=== PATIENT | male | born 1970 | race Two or more races ===

== ENCOUNTER → 2020-08-29 13:58 | Outpatient (REF) | payer BC, SELFPAY | LOC: HO.SL 13:58 | PROVIDERS: PCP Internal Medicine; Visit Provider Internal Medicine | DX: G47.33 Obstructive sleep apnea (adult) (pediatric) (principal); I10 Essential (primary) hypertension | CPT/HCPCS: 95806 ==

== ENCOUNTER → 2020-09-21 13:52 | Outpatient (REF) | payer BC, SELFPAY ==
--- NOTE | 2020-09-21 14:05 | ECG_ITS ---
Hook-up date: 2020-09-21 14:04:00 Duration: 25:34:00 Test Indications: ESSEN. HTN, PALPITATIONS Medications: [id number] QRS complexes 3 Ventricular ectopics which represent <1 % of total QRS comp. 36 Supraventricular ectopics which represent <1 % of total QRS comp. * Paced QRS complexs which represent % of total QRS comp. VENTRICULAR ECTOPY 3 Isolated 0 Bigeminal Cycles 0 Couplets 0 Runs 0 Beats in Runs * Beats LONGEST at * BPM at :: -- * Beats FASTEST at * BPM at :: -- SUPRAVENTRICULAR ECTOPY 36 Isolated 0 Couplets 0 Runs 0 Beats in Runs * Beats LONGEST at * BPM at :: -- * Beats FASTEST at * BPM at :: -- HEART RATES 45 MIN at 21:42:05 2020-09-21 80 AVG 136 MAX at 14:45:18 2020-09-21 LONGEST RR 1.4480 secs at 21:43:31 2020-09-21 S-T LEVELS Channel 1 - 128 mm at 14:04:00 2020-09-21 - 128 mm at 14:04:00 2020-09-21 Channel 2 - 128 mm at 14:04:00 2020-09-21 - 128 mm at 14:04:00 2020-09-21 Channel 3 - 128 mm at 03:32:31 -- - 128 mm at 03:32:31 Basic rhythm Normal sinus rhythm No long pause or profound bradycardia Rare Premature atrial complexes Patient reported symptoms correlated with NSR Referred By: Darcy Seo Overread By: BERTRAM US MD
== END ==
LOC: HO.CARD 13:52
PROVIDERS: Visit Provider Internal Medicine
DX: R00.2 Palpitations (principal); I10 Essential (primary) hypertension
CPT/HCPCS: 93225; 93226

== ENCOUNTER → 2020-10-13 11:28 | Outpatient (REF) | payer BC, SELFPAY ==
--- NOTE | 2020-10-13 11:32 | CA_ITS ---
Transthoracic Echocardiogram Patient (Last, First, Middle): Yuri Acuña C Gender: Male Date of : 1970 Age: 49 Procedure Date: 10/13/2020 Procedure Type: Transthoracic Echocardiogram Location: OP Height: 193.04 cm Weight: 105.24 kg BSA: 2.36 m2 Heart Rate: bpm BP: 117 / 79 mmHg Infectious Diseases Physician: LI Arrieta MD: Darcy Seo MD Quality Control Coordinator: Paul Portillo MD Symptoms: hypertension Study Quality: Fair ECG Rhythm: Sinus Conclusions: - Essentially normal study Findings Left Ventricle Normal left ventricular size, thickness, and systolic function. The visually estimated ejection fraction is between 60-65%. Diastolic function is normal for age. Right Ventricle Normal right ventricular cavity size and systolic function. Atria Both atria are normal in size. Interatrial shunt cannot be excluded. Aortic Valve The aortic valve structure and function is likely normal. There is no aortic valve stenosis. There is no aortic valve regurgitation. Mitral Valve Normal mitral valve structure and function. There is trace mitral valve regurgitation. There is no mitral valve stenosis. Pulmonic Valve The pulmonic valve was not well visualized. Tricuspid Valve Likely normal tricuspid valve structure and function. There is mild tricuspid valve regurgitation. The right ventricular systolic pressure is normal. The right ventricular systolic pressure is 20 mmHg. Normal right atrial pressure. There is no evidence of pulmonary hypertension. Great Vessels All visible segments of the aorta are normal in size. The pulmonary artery was not well visualized. Venous The inferior vena cava is normal in size and collapses greater than 50% with inspiration. Pericardium/Pleural There is no evidence of pericardial effusion. Prior Study Comparison No prior study available for comparison. Measurements M-Mode Liner Measurements Normals - Women/Men AOV Cusps: 2.10 1.5-2.6 cm/m2 2D Linear Measurements IVSd: 1.04 0.6-0.9/0.6-1.0 cm LVIDd: 4.33 3.9-5.3/4.2-5.9 cm LVIDd Index: 1.83 2.4-3.2/2.2-3.1 cm/m2 LVIDs: 2.59 2.0-3.6 cm LVPWd: 0.87 0.7-1.1 cm Ao Root: 3.00 2.1-3.5 cm LA Diam: 2.90 2.7-3.8/3.0-4.0 cm LAIDs Index: 1.23 1.5-2.3 cm/m2 LV Mass: 168.38 67-162/88-224 g LV Mass Index: 71.35 43-95/49-115 g/m2 LVOT Diam: 2.10 3.0+(-)1.3 cm 2D Systolic Function EF 4C: 60.10 >55% EF 2C: 66.50 >55% EF BiP: 63.50 >55% Mitral Valve MV Pk E: 0.80 MV PK A: 0.54 MV Decel Time: 183.00 E/A: 1.50 E'Lateral: 14.50 E'Medial: 7.72 E/E' Med: 10.30 E/E' Lat: 5.50 PHT: 54.00 MVA PHT: 4.07 Decel Fisher: 4.34 Aortic Valve AoV Pk Frederick: 1.67 AoV Pk Grad: 11.00 LVOT LVOT Pk Frederick: 1.12 LVOT Mn Frederick: 0.82 LVOT VTI: 0.23 LVOT Pk Grad: 5.00 LVOT Mn Grad: 3.00 LVOT Diam: 2.10 LVOT Area: 3.46 Diastolic Function MV Pk E: 0.80 MV Pk A: 0.54 E/A: 1.50 E'Medial: 7.72 E/E' Med: 10.30 E' Laterial: 14.50 E/E' Lat: 5.50 Tricuspid Valve TR Pk Frederick: 2.05 TR Pk Grad: 17.00 RA Press: 3.00 RVSP: 20.00 Great Vessels Aorta Ao Root-2D: 3.00 2.0-3.7 cm Ao Asc: 3.20 2.1-3.4 cm Ao Arch: 2.40 Pulmonary Valve PV Pk Frederick: 1.37 Peak PV Grad: 8.00 Updated in Other Vendor System with Status of Final Paul Portillo MD electronically signed on 10/13/2020 4:13:05 PM with status of Final
== END ==
LOC: HO.CARD 11:28
PROVIDERS: Visit Provider Internal Medicine
DX: R00.2 Palpitations (principal); I10 Essential (primary) hypertension
CPT/HCPCS: 93306

== ENCOUNTER 2021-01-23 14:43 | Outpatient (REF) | payer BC, SELFPAY ==
--- NOTE | ~2021-01-23 | XR_ITS ---
EXAMINATION: XR KNEE, RIGHT CLINICAL INFORMATION: Knee pain. COMPARISON: X-ray 09/28/2010 TECHNIQUE: Four views of the right knee. FINDINGS: Severe medial compartment arthritis, with marked joint space loss, sclerosis and cysts. Genu varus. Arthritis to a lesser degree in the lateral and patellofemoral compartment. No fracture or dislocation. Small to moderate effusion. XR/XR knee RT 4V IMPRESSION: Tricompartment osteoarthritis. Severe medial compartment arthritis. Small moderate effusion.
== END 2021-01-23 14:44 | disposition home or self-care (01) ==
LOC: HO.XRAY 14:43
PROVIDERS: PCP Internal Medicine; Referring Provider Internal Medicine; Visit Provider Internal Medicine
DX: M25.561 Pain in right knee (principal)
CPT/HCPCS: 73564

== ENCOUNTER 2021-01-25 13:14 | Outpatient (REF) | payer BC, SELFPAY ==
--- NOTE | ~2021-01-25 | US_ITS ---
EXAMINATION: ULTRASOUND EXTREMITY NONVASCULAR CLINICAL INFORMATION: Right knee pain COMPARISON: Previous x-ray 01/23/2021 TECHNIQUE: Grayscale color and Doppler imaging of the soft tissues of the knee FINDINGS: There is a suprapatellar joint effusion. There is no Gomez's cyst. The popliteal artery and vein are patent. US/US extremity nonvascular IMPRESSION: Suprapatellar joint effusion.
== END 2021-01-25 13:15 | disposition home or self-care (01) ==
LOC: HO.US 13:14
PROVIDERS: PCP Internal Medicine; Visit Provider Internal Medicine
DX: M25.561 Pain in right knee (principal); M25.461 Effusion, right knee
CPT/HCPCS: 76882

== ENCOUNTER → 2021-10-24 14:41 | Outpatient (BNVA) | payer BC, SELFPAY | PROVIDERS: PCP Internal Medicine; Visit Provider Nurse Practitioner Family | DX: Z13.89 Encounter for screening for other disorder (principal) ==

== ENCOUNTER 2023-03-13 13:05 | Outpatient (REF) | payer BC, SELFPAY ==
[2023-03-13 16:32] LABS: Estimated Average Glucose 105 mg/dL; Hemoglobin A1c % 5.3 %
[2023-03-13 16:38] LABS: Anion Gap 12 (12-20); Blood Urea Nitrogen 11 mg/dL (9-16); Calcium 9.8 mg/dL (8.4-10.2); Carbon Dioxide 26 mmol/L (22-29); Chloride 104 mmol/L (96-108); Estimated Glomerular Filt Rate > 60; Glucose Random 79 mg/dL (60-115); Potassium 4.2 mmol/L (3.3-5.1); Sodium 138 mmol/L (135-145)
== END 2023-03-13 13:06 | disposition home or self-care (01) ==
LOC: HO.HHCL 13:05
PROVIDERS: Visit Provider Internal Medicine
DX: R73.01 Impaired fasting glucose (principal)
CPT/HCPCS: 36415; 80048; 83036

== ENCOUNTER 2023-07-11 08:29 | Outpatient (REF) | payer BC, SELFPAY ==
[2023-07-17 13:28] LABS: Testosterone, Total 213 ng/dL (250-1100)
== END 2023-07-11 08:30 | disposition home or self-care (01) ==
LOC: HO.HHCL 08:29
PROVIDERS: Visit Provider Internal Medicine
DX: N40.1 Benign prostatic hyperplasia with lower urinary tract symptoms (principal)
CPT/HCPCS: 36415; 84402; 84403

== ENCOUNTER 2023-08-28 13:43 | Outpatient (AMB) | payer BC, SELFPAY ==
--- NOTE | 2023-08-28 13:49 | A.OFFVIS_ITS ---
Intake Intake Visit Reasons: BPH Intake Note: NEW Patient presents today to established treatment for BPH: Meds- Testosterone IM Allergies to Antibiotic- Penicillin Blood Thinner- Aspirin Post Void Residual: 92 ml Electrical Tester Battery Required: No Accompanied by: Self / Same As Patient Allergies cortisone [CORTISONE] Allergy (Unknown, Verified 08/28/23 13:50) TACHYCARDIA Penicillins [PCN] Allergy (Unknown, Verified 08/28/23 13:50) HIVES HPI HPI Comments History of Present Illness Details Yuri is a 52 year old male who is here for evaluation for BPH. The patient states he is prescribed testosterone replacement by Endocrine. The patient complains of daytime urinary frequency every 2-3 hours, denies urinary incontinence, nocturia x3, denies hematuria, or dysuria. I have discussed avoiding dietary bladder irritants, including to cut back on caffeine usage I have discussed evaluation of the upper tracts and consideration for cystoscopy evaluation. 08/28/23--Plan: Cialis 5 mg daily renal US, PSA screening PFSH Surgical History Hx of knee surgery History of cholecystectomy Family History (Updated 08/28/23 @ 14:17 by ANGIE Martines) Father Heart attack No family history of cancer Mother No problems noted. Social History Alcohol intake: current Alcohol intake frequency: holidays/special occasions only Patient Tobacco Use Status: Never used Tobacco Questionnaire AUA Symptom Score AUA Incomplete emptying - It does not feel like I empty my bladder all the way.: 2 - Less than half the time Frequency - I have to go again less than two hours after I finish urinating.: 3 - About half the time Intermittency - I stop and start again several times when I urinate.: 0 - Not at all Urgency - It is hard to wait when I have to urinate.: 0 - Not at all Weak stream - I have a weak urinary stream.: 0 - Not at all Straining - I have to push or strain to begin urination.: 2 - Less than half the time Nocturia - I get up to urinate after I go to bed until the time I get up in the morning.: 3 times AUA Symptom Score: 10 Quality of life due to urinary symptoms: If you were to spend the rest of your life with your urinary condition the way it is now, how would you feel about that?: Mostly dissatisfied Source: Aron ARANGO, Luiza SHARPE Jr, O'Gilberto MP, et al, and the Measurement Committee of the [place] [employer]. The [place] [employer] symptom index for benign prostatic hyperplasia. J Urol. 1992; 148: 9750-5354. Copyright 1992 [employer] [place] [employer] Review of Systems Const All systems reviewed & are unremarkable except as noted in HPI and below Reports no additional complaints Eyes Reports no additional complaints ENT Reports no additional complaints Card Denies dyspnea Resp Denies cough and Denies dyspnea GI Reports no additional complaints Musc Reports no additional complaints Skin/Breast Denies rash and Denies unusual bruising Neuro Reports no additional complaints Psych Reports no additional complaints Endo Reports no additional complaints Aaron/Lymph Reports no additional complaints Aller/Immun Reports no additional complaints Physical Exam Const General: healthy appearing, no acute distress and well developed Orientation/consciousness: patient oriented x3 HEENT Head: Yes normocephalic and Yes atraumatic Eyes Conjunctivae: conjunctivae normal Neck Neck: Yes normal visual inspection Chest Chest palpation & inspection: normal inspection of the chest Resp Effort & Inspection: normal respiratory effort Cardio Rate: regular rate GI Inspection: Yes normal to inspection Palpation (GI): Soft to palpation Other: Prostate Exam: smooth, mildly enlarged Skin General skin exam: no rashes or lesions noted Neuro General: patient oriented x3 Extrem General: No pedal edema Psych Appearance: grossly normal Affect: normal affect Office Procedures Post Void Residual Post Residual Void Post Void Residual (PVR): 92 [id number] Void Residual by ultrasound Results AMB Urinalysis, Automated UA Leukoctes 0 Micki/uL Last Edit by ANGIE Martines on 08/28/23 14:15 UA Nitrite Negative Last Edit by ANGIE Martines on 08/28/23 14:15 UA Urobilinogen 0.2 mg/dL Last Edit by ANGIE Martines on 08/28/23 14:1 5 UA Protein 0 mg/dL Last Edit by Susie Atkinson Kandy on 08/28/23 14:15 UA pH 6.0 Last Edit by Susie Atkinson A on 08/28/23 14:15 UA Blood 0 Alberto/uL Last Edit by Susie Atkinson, A on 08/28/23 14:15 UA Specific [place] 1.015 Last Edit by Susie Atkinson, A on 08/28/23 14: 15 UA Ketone Negative Last Edit by Susie Atkinson Kandy on 08/28/23 14:15 UA Bilirubin 0 mg/dL Last Edit by Susie Atkinson A on 08/28/23 14:15 UA Glucose 0 mg/dL Last Edit by Susie Atkinson Kandy on 08/28/23 14:15 Results Reviewed Results Reviewed: Laboratory Last Values Urine pH (Auto) 6.0 08/28/23 13:55 Specific [place] (Auto) 1.015 08/28/23 13:55 Urine Protein (Auto) 0 mg/dL 08/28/23 13:55 Glucose (UA)(Auto) 0 mg/dL 08/28/23 13:55 Urine Ketones (Auto) Negative 08/28/23 13:55 Urine Blood (Auto) 0 Alberto/uL 08/28/23 13:55 Urine Nitrite (Auto) Negative 08/28/23 13:55 Urine Bilirubin (Auto) 0 mg/dL 08/28/23 13:55 Urine Urobilinogen (Auto) 0.2 mg/dL 08/28/23 13:55 Leukocyte Esterase (Auto) 0 Micki/uL 08/28/23 13:55 Assessment & Plan Assessment & Plan (1) BPH loc w urin obs/LUTS: Code(s): N40.1 - Benign prostatic hyperplasia with lower urinary tract symptoms Plan Cialis 5 mg daily renal US, PSA screening Orders: Orders AMB Urinalysis Automated 08/28/23 Z13.9 - Encounter for screening, unspecified AMB Post Void Residual by ultrasound 08/28/23 N39.8 - Other specified disorders of urinary system US retroperitoneal comp 08/28/23 N40.1 - Benign prostatic hyperplasia with lower urinary tract symptoms PSA,Total (Free>4and<10) 08/30/23 N40.1 - Benign prostatic hyperplasia with lower urinary tract symptoms Medications: New tadalafil (Cialis) 5 mg PO DAILY 30 tabs 5RF Patient Instructions: The patient had an opportunity to ask questions regarding treatment plan. All questions were answered. Laboratory studies and physical exam results were discussed and reviewed in detail. No major barriers to understanding were identified. The patient expressed understanding and agreement with the above treatment plan. The patient is aware they should contact our office by phone for worsening of their current condition or the appearance of new symptoms. Compliance is encouraged with any medications and followup testing that is ordered. It is a privilege to be allowed the opportunity to participate in the urologic care of your patient. If you have any questions or concerns regarding treatment for the above conditions please do not hesitate to contact me. The office te hannah contact is [phone]. This note is constructed in part using voice recognition software. While every effort has been made to ensure accuracy oral health therapist errors may have been included. Yours sincerely, Gerald Hurley MD Quality Reporting (2020) Benign Prostatic Hyperplasia ([facility] 771) AUA symptom score: 10 Quality of life due to urinary symptoms: If you were to spend the rest of your life with your urinary condition the way it is now, how would you feel about that?: Mostly dissatisfied Coding Level of Care Code New Pt Level 4 (90661) Diagnoses BPH loc w urin obs/LUTS N40.1 CPT Codes Post Residual Void - PVR CPT Code: 78862-Ryxi Void Residual by ultrasound ([id number])
== END 2023-08-28 14:54 | disposition home or self-care (01) ==
PROVIDERS: PCP Internal Medicine; Visit Provider Urology
DX: N40.1 Benign prostatic hyperplasia with lower urinary tract symptoms (principal)
CPT/HCPCS: 99204

== ENCOUNTER → 2023-08-28 13:43 | Outpatient (BNVA) | payer BC, SELFPAY | PROVIDERS: PCP Internal Medicine; Visit Provider Urology | DX: N40.1 Benign prostatic hyperplasia with lower urinary tract symptoms (principal); N13.8 Other obstructive and reflux uropathy; Z79.899 Other long term (current) drug therapy | CPT/HCPCS: 51798; 81003 ==

== ENCOUNTER 2023-08-30 08:04 | Outpatient (REF) | payer BC, SELFPAY ==
[2023-08-30 10:25] LABS: PSA,Total (Free>4and<10) 0.27 ng/mL (0.00-4.00)
== END 2023-08-30 08:05 | disposition home or self-care (01) ==
LOC: HO.LAB 08:04
PROVIDERS: Visit Provider Urology
DX: Z12.5 Encounter for screening for malignant neoplasm of prostate (principal); N40.1 Benign prostatic hyperplasia with lower urinary tract symptoms
CPT/HCPCS: 36415; 84153

== ENCOUNTER 2023-09-23 14:41 | Outpatient (REF) | payer BC, SELFPAY ==
[2023-09-23 16:24] LABS: MANUAL DIFF FLAG NO
[2023-09-23 16:25] LABS: Basophils Percent Auto 0.6 % (0-2); Eosinophils Absolute Auto 0.1 X10*3/uL (0.0-0.4); Eosinophils Percent Auto 1.7 % (0-4); Hematocrit 41.6 % (42.0-52.0); Hemoglobin 13.7 g/dl (14.0-18.0); Imm Gran Abs Auto 0.02 X10*3/uL (0.00-0.03); Imm Gran Pct Auto 0.3 % (0.0-0.4); Lymphocytes Absolute Auto 1.6 X10*3/uL (1.2-4.9); Lymphocytes Percent Auto 23.4 % (20-40); Mean Corpuscular HGB Conc 32.9 g/dl (31.0-36.0); Mean Corpuscular Hemoglobin 28.6 pg (27.0-33.0); Mean Corpuscular Volume 86.8 fL (80.0-98.0); Monocytes Absolute Auto 0.5 X10*3/uL (0.1-1.2); Monocytes Percent Auto 6.7 % (2-11); Neutrophils Absolute Auto 4.6 x10*3/uL (2.0-8.3); Neutrophils Percent Auto 67.3 % (45-73); Platelet Count 247 X10*3/uL (160-400); Red Blood Count 4.79 X10*6/uL (4.60-5.80); Red Cell Distribution Width 13.8 % (11.0-16.0); White Blood Count 6.9 X10*3/uL (4.8-10.8)
[2023-09-23 16:51] LABS: C Reactive Protein 0.16 mg/dL (< or = 0.50); Uric Acid 4.3 mg/dL (3.4-7.0)
[2023-09-23 17:11] LABS: Erythrocyte Sedimentation Rate 5 MM/HR (0-15)
[2023-09-24 08:45] LABS: Syphilis Screen Nonreactive (Nonreactive)
[2023-10-01 08:33] LABS: Anti Nuclear Antibody Screen NEGATIVE (NEGATIVE)
== END 2023-09-23 14:42 | disposition home or self-care (01) ==
LOC: HO.HHCL 14:41
PROVIDERS: Visit Provider Internal Medicine
DX: M19.079 Primary osteoarthritis, unspecified ankle and foot (principal)
CPT/HCPCS: 36415; 84550; 85025; 85652; 86038; 86140; 86780

== ENCOUNTER 2023-09-25 12:58 | Outpatient (REF) | payer BC, SELFPAY ==
--- NOTE | ~2023-09-25 | XR_ITS ---
EXAMINATION: XR ANKLE, RIGHT CLINICAL INFORMATION: Right ankle pain x2 weeks. COMPARISON: None available. TECHNIQUE: AP, lateral, and mortise views of the right ankle. FINDINGS: Alignment is anatomic. Ankle mortise is maintained. The talar dome is intact. Tiny well-corticated ossific density inferior to the medial malleolus may represent old injury. Mild diffuse soft tissue swelling. XR/XR ankle RT min 3V IMPRESSION: No acute bony abnormality.
== END 2023-09-25 12:59 | disposition home or self-care (01) ==
LOC: HO.HHCX 12:58
PROVIDERS: Visit Provider Internal Medicine
DX: M19.071 Primary osteoarthritis, right ankle and foot (principal)
CPT/HCPCS: 73610

== ENCOUNTER 2023-11-01 07:18 | Outpatient (REF) | payer BC, SELFPAY ==
[2023-11-01 08:46] LABS: Cholesterol 122 mg/dL (<200); HDL Cholesterol 35 mg/dL (>40); LDL Cholesterol Calculated 70 mg/dL (<100); Triglycerides 86 mg/dL (<150)
[2023-11-01 09:40] LABS: HBS Num1 21.01 mIU/mL (0-7.99); HBc Num1 0.08 S/CO (0.00-0.79); HBsAGNum1 0.29 S/CO (0.00-0.99); HIV AB/AG Nonreactive (Nonreactive); HIV Num 1 0.08 S/CO (0.00-0.99); Hepatitis A Antibody IgM 0.42 Index (0-0.79); Hepatitis B Core Antibody Nonreactive (Nonreactive); Hepatitis B Surface Antigen Negative (Negative); ~HepC Num1 0.09 S/CO (0.00-0.79); ~Hepatitis A Antibody IgM Nonreactive (Nonreactive); ~Hepatitis B Surface Antibody REACTIVE (Nonreactive); ~Hepatitis C Antibody Nonreactive (Nonreactive)
== END 2023-11-01 07:19 | disposition home or self-care (01) ==
LOC: HO.LAB 07:18
PROVIDERS: PCP Internal Medicine; Visit Provider Internal Medicine
DX: Z00.00 Encounter for general adult medical examination without abnormal findings (principal); Z11.4 Encounter for screening for human immunodeficiency virus [HIV]; E78.2 Mixed hyperlipidemia
CPT/HCPCS: 36415; 80061; 86704; 86706; 86709; 86803; 87340; 87389

== ENCOUNTER 2023-11-19 15:56 | Outpatient (REF) | payer BC, SELFPAY ==
--- NOTE | ~2023-11-19 | US_ITS ---
EXAMINATION: US RETROPERITONEAL COMPLETE (RENAL) CLINICAL INFORMATION: Benign prostatic hyperplasia with lower urinary tract symptoms. COMPARISON: None available. TECHNIQUE: Real-time imaging of the kidneys and bladder. FINDINGS: RIGHT KIDNEY: 10.9 x 4.6 x 5.1 cm (SAG x AP x TRV). The kidney is normal in size, contour, and echogenicity. Renal cortical thickness is normal. No calculi or focal parenchymal lesions. No hydronephrosis. LEFT KIDNEY: 12.0 x 4.9 x 4.5 cm (SAG x AP x TRV). The kidney is normal in size, contour, and echogenicity. Renal cortical thickness is normal. No calculi or focal parenchymal lesions. No hydronephrosis. BLADDER: Well distended and normal. Bilateral ureteral jets are demonstrated. Prevoid bladder volume is 183.4 mL. Postvoid bladder volume is 32.3 mL. Enlarged prostate, volume 35.2 mL. US/US retroperitoneal comp IMPRESSION: 1. Normal appearance of the kidneys. 2. Small post void residual. 3. Enlarged prostate.
== END 2023-11-19 15:57 | disposition home or self-care (01) ==
LOC: HO.US 15:56
PROVIDERS: PCP Internal Medicine; Visit Provider Urology
DX: N40.1 Benign prostatic hyperplasia with lower urinary tract symptoms (principal)
CPT/HCPCS: 76770

== ENCOUNTER 2023-12-10 14:09 | Outpatient (REF) | payer BC, SELFPAY ==
--- NOTE | ~2023-12-10 | MM_ITS ---
EXAMINATION: BONE DENSITOMETRY CLINICAL INDICATION: Hypogonadism, high risk of osteoporosis. COMPARISON: This is the patient's baseline examination. TECHNIQUE: Using a [employer] DXA System (software version: 13.1) manufactured by [employer], dual-energy x-ray absorptiometry was performed of the lumbar spine and left hip. The images are of good technical quality. Summary results are attached. FINDINGS: LEFT FEMUR, NECK: BMD 0.914 g/cm2, Z-score -0.9, T-score -1.2, osteopenia. LEFT FEMUR, TOTAL: BMD 0.924 g/cm2, Z-score -1.3, T-score -1.2, osteopenia. AP SPINE L1-L4: BMD 1.199 g/cm2, Z-score -0.6, T-score -0.2, normal. IDENTIFIED RISK FACTORS: History of fracture (adult), secondary osteoporosis (hypogonadism). HISTORY OF FRACTURE: Wrist. MEDICATIONS: None listed. MM/XR DEXA axial skeleton IMPRESSION: 1. DIAGNOSIS: Osteopenia based on the lowest T-score value of -1.2 in the femoral neck and total femur applying World Health Organization criteria. 2. 10-YEAR FRACTURE RISK PREDICTION, FRAX: Major osteoporotic fracture (clinical spine, forearm, hip or shoulder) 4.5%. Hip fracture 0.4%. 3. Treatment Recommendations: NOF guidelines recommend consideration for treatment in postmenopausal women and men age 50 and older presenting with the following: -A hip or vertebral (clinical or morphometric) fracture. -T-score less than or equal to -2.5 at the femoral neck or spine after appropriate evaluation to exclude secondary causes. -Low bone mass at the hip or spine and a 10-year fracture probability by FRAX of greater than or equal to 3% for hip fracture or greater than or equal to 20% for major osteoporotic fracture based on the [place] adapted WHO algorithm. 4. Other Recommendations: All treatment decisions require clinical judgment and consideration of individual patient factors, including patient preferences, comorbidities, previous drug use, risk factors not captured in the FRAX model (e.g. frailty, falls, vitamin D deficiency, increased bone turnover, interval significant decline in bone density) and possible under or overestimation of fracture risk by FRAX. Additional medical evaluation for secondary cause of low bone mineral density may be appropriate. FUTURE SCAN RECOMMENDATION: People with diagnosed cases of osteoporosis or at high risk for fracture should have regular bone mineral density tests. For patients eligible for Medicare, routine testing is allowed once every 2 years. The testing frequency can be increased to one year for patients who have rapidly progressing disease, those who are receiving or discontinuing medical therapy to restore bone mass, or have additional risk factors.
== END 2023-12-10 14:10 | disposition home or self-care (01) ==
LOC: HO.MAMMO 14:09
PROVIDERS: PCP Internal Medicine; Visit Provider Internal Medicine
DX: Z13.820 Encounter for screening for osteoporosis (principal); E29.1 Testicular hypofunction; Z91.89 Other specified personal risk factors, not elsewhere classified; M85.852 Other specified disorders of bone density and structure, left thigh
CPT/HCPCS: 77080

== ENCOUNTER 2023-12-25 15:33 | Outpatient (AMB) | payer BC, SELFPAY ==
--- NOTE | 2023-12-25 15:42 | A.OFFVIS_ITS ---
Intake Visit Reasons: 3m/US/PSA Intake Note: Patient presents today for a follow-up on US & PSA Results: Meds- Testosterone IM Allergies to Antibiotic- Penicillin Blood Thinner- Aspirin Pump Servicer Helper Required: Yes Pump Servicer Helper Name: Susie Atkinson Information Interpreted: non-clinical & clinical Accompanied by: Self / Same As Patient Allergies cortisone [CORTISONE] Allergy (Unknown, Verified 12/25/23 15:43) TACHYCARDIA Penicillins [PCN] Allergy (Unknown, Verified 12/25/23 15:43) HIVES Medication List - Last Reconciled 12/25/23 by Gerald Hurley MD aspirin 81 mg PO DAILY atorvastatin 20 mg PO DAILY ibuprofen 800 mg PO Q6H PRN lisinopril 5 mg PO DAILY oxybutynin chloride ER 5 mg PO DAILY tadalafil (Cialis) 5 mg PO DAILY testosterone cypionate mg IM HPI Comments Details: 12/25/23--Yuri is here to review renal US and PSA results, he was last seen on 08/28/23 for BPH symptoms and ED. He requested back end architect. He was started on Cialis 5 mg daily and states medication is helping with erections. Discussed PSA results WNL and renal US results 11/19/23- kidneys WNL, prostate enlarged. He complains of urinary frequency q 2 hrs, will trial oxybutynin 5 mg daily. FU with RUBEN Hughes regarding OAB symptoms 08/30/23--PSA--0.27 ng/mL Review of chart: 08/28/23--Yuri is a 52 year old male who is here for evaluation for BPH. The patient states he is prescribed testosterone replacement by Endocrine. The patient complains of daytime urinary frequency every 2-3 hours, denies urinary incontinence, nocturia x3, denies hematuria, or dysuria. I have discussed avoiding dietary bladder irritants, including to cut back on caffeine usage I have discussed evaluation of the upper tracts and consideration for cystoscopy evaluation. [facility] Surgical History Hx of knee surgery History of cholecystectomy Family History Father Heart attack No family history of cancer Mother No problems noted. Social History Alcohol intake: current Alcohol intake frequency: holidays/special occasions only Patient Tobacco Use Status: Never used Tobacco Review of Systems Const All systems reviewed & are unremarkable except as noted in HPI and below Reports no additional complaints Eyes Reports no additional complaints ENT Reports no additional complaints Card Reports no additional complaints Resp Reports no additional complaints GI Reports no additional complaints Reports as per HPI Musc Reports no additional complaints Skin/Breast Reports system reviewed and no additional complaints, except as documented Neuro Reports no additional complaints Psych Reports no additional complaints Endo Reports no additional complaints Aaron/Lymph Reports no additional complaints Aller/Immun Reports no additional complaints Results AMB Urinalysis, Automated UA Leukoctes 0 Micki/uL Last Edit by ANGIE Martines on 12/25/23 16:00 UA Nitrite Negative Last Edit by ANGIE Martines on 12/25/23 16:00 UA Urobilinogen 0.2 mg/dL Last Edit by ANGIE Martines on 12/25/23 16:0 0 UA Protein 0 mg/dL Last Edit by ANGIE Martines on 12/25/23 16:00 UA pH 7.0 Last Edit by ANGIE Martines on 12/25/23 16:00 UA Blood 0 Alberto/uL Last Edit by ANGIE Martines on 12/25/23 16:00 UA Specific [place] 1.005 Last Edit by ANGIE Martines on 12/25/23 16: 00 UA Ketone Negative Last Edit by ANGIE Martines on 12/25/23 16:00 UA Bilirubin 0 mg/dL Last Edit by ANGIE Martines on 12/25/23 16:00 UA Glucose 0 mg/dL Last Edit by ANGIE Martines on 12/25/23 16:00 Results Reviewed Results Reviewed: Laboratory Last Values Urine pH (Auto) 7.0 12/25/23 15:47 Specific [place] (Auto) 1.005 12/25/23 15:47 Urine Protein (Auto) 0 mg/dL 12/25/23 15:47 Glucose (UA)(Auto) 0 mg/dL 12/25/23 15:47 Urine Ketones (Auto) Negative 12/25/23 15:47 Urine Blood (Auto) 0 Alberto/uL 12/25/23 15:47 Urine Nitrite (Auto) Negative 12/25/23 15:47 Urine Bilirubin (Auto) 0 mg/dL 12/25/23 15:47 Urine Urobilinogen (Auto) 0.2 mg/dL 12/25/23 15:47 Leukocyte Esterase (Auto) 0 Micki/uL 12/25/23 15:47 Date of Service: 11/19/23 EXAMINATION: US RETROPERITONEAL COMPLETE (RENAL) CLINICAL INFORMATION: Benign prostatic hyperplasia with lower urinary tract symptoms. COMPARISON: None available. TECHNIQUE: Real-time imaging of the kidneys and bladder. FINDINGS: RIGHT KIDNEY: 10.9 x 4.6 x 5.1 cm (SAG x AP x TRV). The kidney is normal in size, contour, and echogenicity. Renal cortical thickness is normal. No calculi or focal parenchymal lesions. No hydronephrosis. LEFT KIDNEY: 12.0 x 4.9 x 4.5 cm (SAG x AP x TRV). The kidney is normal in size, contour, and echogenicity. Renal cortical thickness is normal. No calculi or focal parenchymal lesions. No hydronephrosis. BLADDER: Well distended and normal. Bilateral ureteral jets are demonstrated. Prevoid bladder volume is 183.4 mL. Postvoid bladder volume is 32.3 mL. Enlarged prostate, volume 35.2 mL. IMPRESSION: 1. Normal appearance of the kidneys. 2. Small post void residual. 3. Enlarged prostate. Assessment & Plan Assessment & Plan (1) BPH loc w urin obs/LUTS: Code(s): N40.1 - Benign prostatic hyperplasia with lower urinary tract symptoms Category: Medical (2) Erectile dysfunction: Code(s): N52.9 - Male erectile dysfunction, unspecified Category: Medical (3) OAB (overactive bladder): Code(s): N32.81 - Overactive bladder Category: Medical Plan Daily Cialis 5 mg for ED. Start oxybutynin 5 mg daily for OAB, FU with RUBEN Hughes regarding OAB symptoms Orders: Orders AMB Urinalysis Automated 12/25/23 Z13.9 - Encounter for screening, unspecified Medications: New oxybutynin chloride ER 5 mg PO DAILY 30 tabs 3RF for frequent urination Changed From tadalafil (Cialis) 5 mg PO DAILY 30 tabs 5RF To tadalafil (Cialis) [id number] [facility] [id number] Member [id number] 5 mg PO DAILY 30 tabs 3RF Patient Instructions: The patient had an opportunity to ask questions regarding treatment plan. The patient expressed understanding and agreement with the above treatment plan. The patient is aware they should contact our office by phone for worsening of their current condition or the appearance of new symptoms. Compliance is encouraged with any medications and followup testing that is ordered. It is a privilege to be allowed the opportunity to participate in the urologic care of your patient. If you have any questions or concerns regarding treatment for the above conditions please do not hesitate to contact me. The office telephone contact is [phone]. This note is constructed in part using voice recognition software. While every effort has been made to ensure accuracy technician preventative medicine errors may have been included. Yours sincerely, Gerald Hurley MD Coding Level of Care Code Est Pt Level 4 (32654) Diagnoses BPH loc w urin obs/LUTS N40.1 Erectile dysfunction N52.9 OAB (overactive bladder) N32.81
== END 2023-12-25 16:22 | disposition home or self-care (01) ==
PROVIDERS: PCP Internal Medicine; Visit Provider Urology
DX: N40.1 Benign prostatic hyperplasia with lower urinary tract symptoms (principal); N52.9 Male erectile dysfunction, unspecified; N32.81 Overactive bladder
CPT/HCPCS: 99214

== ENCOUNTER → 2023-12-25 15:33 | Outpatient (BNVA) | payer BC, SELFPAY | PROVIDERS: PCP Internal Medicine; Visit Provider Urology | DX: N40.1 Benign prostatic hyperplasia with lower urinary tract symptoms (principal); N13.8 Other obstructive and reflux uropathy; N32.81 Overactive bladder; N52.9 Male erectile dysfunction, unspecified | CPT/HCPCS: 81003 ==

== ENCOUNTER 2024-03-03 15:06 | Outpatient (AMB) | payer BC, SELFPAY ==
--- NOTE | 2024-03-03 15:13 | A.OFFVIS_ITS ---
Intake Visit Reasons: 10w/OAB Intake Note: Patient is present for 10W/OAB Urology Medication:OXYBUTYNIN,TADALAFIL Antibiotic Allergy:PENICILLINS Blood Thinner:NONE Machine Loader Required: Yes Machine Loader Name: Henry Wagner-CMI Allergies cortisone [CORTISONE] Allergy (Unknown, Verified 03/03/24 21:02) TACHYCARDIA Penicillins [PCN] Allergy (Unknown, Verified 03/03/24 21:02) HIVES Medication List - Last Reconciled 03/03/24 by TAMRA Booth- aspirin 81 mg PO DAILY atorvastatin 20 mg PO DAILY lisinopril 5 mg PO DAILY tadalafil (Cialis) 5 mg PO DAILY HPI Comments Details: Yuri is a 53-year-old Moldovan-speaking male patient of Dr. Seo. He has a past medical history of hypertension, hyperlipidemia, and hypogonadism. He presents to the office today for follow-up of his lower urinary tract symptoms. Of note, patient was seen approximately [address] Charli Boothe at which time he was started on oxybutynin 5 mg daily for ongoing lower urinary tract symptoms of urinary frequency and nocturia. Previous workup has included a retroperitoneal ultrasound noting bilateral kidneys with no calculi, lesions, and or hydronephrosis. The bladder is well distended and normal. Bladder jets are demonstrated. Pre void bladder volume is approximately 180 mL. Postvoid bladder volume is approximately 30 mL. Enlarged prostate of approximately 35 mL. PSA 09/20 0.3. In discussion with the patient today he reports feeling episodes of urinary frequency are related to increased consumption of fluids. He feels his bothersome urinary issue is nocturia. He does endorse to be drinking fluids prior to bed. He also reports following up with [facility] for his hypogonadism however is enquiring follow-up for bladder issues and hypogonadism here. He reports a previous history of IM testosterone replacement however did not want to continue with injections therefore he switched to gel and has not felt this to be helpful. He is unsure as to what dosage of testosterone gel he is on. He discusses feeling low-dose Cialis 5 mg daily has been helpful in maintaining his erections. He discusses not currently being sexually active. He otherwise denies incontinence, hematuria, dysuria, foul smelling urine, changes to urinary stream, flank pain, fever, and or chills. In office urinalysis results reviewed with the patient today. He otherwise offers no other issues or concerns at this time. [facility] Surgical History Hx of knee surgery History of cholecystectomy Family History Father Heart attack No family history of cancer Mother No problems noted. Social History Alcohol intake: current Alcohol intake frequency: holidays/special occasions only Patient Tobacco Use Status: Never used Tobacco Review of Systems Const All systems reviewed & are unremarkable except as noted in HPI and below Physical Exam Const General: cooperative, healthy appearing, comfortable, no acute distress, well developed, alert and awake Nutritional Appearance: overweight Orientation/consciousness: patient oriented x3 HEENT Head: Yes normal to inspection, Yes normocephalic and Yes atraumatic Ears: hearing grossly normal bilaterally Eyes General: appearance normal, both eyes and all related structures Neck Neck: Yes normal visual inspection and Yes trachea midline Chest Chest palpation & inspection: normal inspection of the chest Resp Effort & Inspection: normal respiratory effort and able to speak in complete sentences Cardio Rate: regular rate GI Inspection: Yes normal to inspection General: Yes no CVA tenderness Back/Spine/Pelvis Back: no CVA tenderness Skin General skin exam: no rashes or lesions noted Neuro General: patient oriented x3 Extrem General: Yes normal to inspection Psych Appearance: grossly normal and well kempt Mental Status: mental status grossly normal Speech and movement: Normal speech and movement present and Clear speech present Affect: normal affect Attitude: cooperative Thought process: Normal thought process present Thought content: Normal thought content present Insight: Fair insight present (Psych) Results AMB Urinalysis, Automated UA Leukoctes 0 Micki/uL Last Edit by NURYS Preciado on 03/03/24 15:23 UA Nitrite Negative Last Edit by NURYS Preciado on 03/03/24 15:23 UA Urobilinogen 0.2 mg/dL Last Edit by NURYS Preciado on 03/03/24 15:2 3 UA Protein 0 mg/dL Last Edit by NURYS Preciado on 03/03/24 15:23 UA pH 5.5 Last Edit by NURYS Preciado on 03/03/24 15:23 UA Blood 0 Alberto/uL Last Edit by NURYS Preciado on 03/03/24 15:23 UA Specific [place] 1.020 Last Edit by NURYS Preciado on 03/03/24 15: 23 UA Ketone Negative Last Edit by NURYS Preciado on 03/03/24 15:23 UA Bilirubin 0 mg/dL Last Edit by NURYS Preciado on 03/03/24 15:23 UA Glucose 0 mg/dL Last Edit by NURYS Preciado on 03/03/24 15:23 Results Reviewed Results Reviewed: Laboratory Last Values Urine pH (Auto) 5.5 03/03/24 15:22 Specific [place] (Auto) 1.020 03/03/24 15:22 Urine Protein (Auto) 0 mg/dL 03/03/24 15:22 Glucose (UA)(Auto) 0 mg/dL 03/03/24 15:22 Urine Ketones (Auto) Negative 03/03/24 15:22 Urine Blood (Auto) 0 Alberto/uL 03/03/24 15:22 Urine Nitrite (Auto) Negative 03/03/24 15:22 Urine Bilirubin (Auto) 0 mg/dL 03/03/24 15:22 Urine Urobilinogen (Auto) 0.2 mg/dL 03/03/24 15:22 Leukocyte Esterase (Auto) 0 Micki/uL 03/03/24 15:22 Assessment & Plan Assessment & Plan (1) OAB (overactive bladder): Code(s): N32.81 - Overactive bladder Category: Medical (2) Erectile dysfunction: Code(s): N52.9 - Male erectile dysfunction, unspecified Category: Medical (3) BPH loc w urin obs/LUTS: Code(s): N40.1 - Benign prostatic hyperplasia with lower urinary tract symptoms Category: Medical Plan In office urinalysis results reviewed with the patient today; as noted above. Discussed at length lifestyle modifications to assist with urinary frequency and nocturia. Discussed importance of compliance with CPAP for improvement in nocturia as well as overall health and well-being. Discussed at length potential causes for lower urinary tract symptoms patient is experiencing. Discussed bladder triggers/irritants. Continue Cialis 5 mg daily as discussed and prescribed; refill provided. A p.r.n. prescription provided for tadalafil Will obtain testosterone for further assessment evaluation. Follow-up in 3 months with lab to be completed prior and PVR at next office visit; or sooner with any issues, concerns, and or questions. Orders: Orders Testosterone, Free/Total Today E11.69 - Type 2 diabetes mellitus with other specified complication, N52.1 - Erectile dysfunction due to diseases classified elsewhere AMB Urinalysis Automated Today Z13.9 - Encounter for screening, unspecified Medications: New tadalafil [id number] [facility] [id number] Member [id number] 20 mg PO .PRN 90 days 45 tabs 2RF sexual activity N52.01 - Erectile dysfunction due to arterial insufficiency, N52.9 - Male erectile dysfunction, unspecified Changed From tadalafil (Cialis) [id number] [facility] [id number] Member [id number] 5 mg PO DAILY 30 tabs 3RF To tadalafil (Cialis) [id number] [facility] [id number] Member [id number] 5 mg PO DAILY 90 days 90 tabs 3RF Patient Instructions: The patient had an opportunity to ask questions regarding the treatment plan. All questions were answered. Physical exam, labs, and imaging were discussed and reviewed in detail. As well as risks, benefits, and discussion of treatment choices. No major barriers to understanding were identified. The patient expressed understanding and agreement with the above treatment plan. The patient was made aware they should contact our office by phone for worsening of their current condition, the appearance of new symptoms, or with any questions or concerns. Compliance is encouraged with any medications and follow up testing that is ordered. It is a privilege to be allowed the opportunity to participate in? your urological care.? Again, if you have any questions or concerns If you have any questions or concerns please do not hesitate to contact me. The office is [phone]. This note is constructed using voice recognition software. While every effort has been made to ensure accuracy salesperson pets and pet supplies errors may have been included. Yours sincerely, CAITLIN Booth Coding Level of Care Code Est Pt Level 4 (95197) Diagnoses OAB (overactive bladder) N32.81 Erectile dysfunction N52.9 BPH loc w urin obs/LUTS N40.1 Time Spent (min) 35
== END 2024-03-03 16:13 | disposition home or self-care (01) ==
PROVIDERS: PCP Internal Medicine; Visit Provider Nurse Practitioner Family
DX: N32.81 Overactive bladder (principal); N52.9 Male erectile dysfunction, unspecified; N40.1 Benign prostatic hyperplasia with lower urinary tract symptoms; Z13.9 Encounter for screening, unspecified
CPT/HCPCS: 99214

== ENCOUNTER → 2024-03-03 15:06 | Outpatient (BNVA) | payer BC, SELFPAY | PROVIDERS: PCP Internal Medicine; Visit Provider Nurse Practitioner Family | DX: N32.81 Overactive bladder (principal); N52.9 Male erectile dysfunction, unspecified; N40.1 Benign prostatic hyperplasia with lower urinary tract symptoms; N13.8 Other obstructive and reflux uropathy; Z79.899 Other long term (current) drug therapy | CPT/HCPCS: 81003 ==

== ENCOUNTER 2024-03-04 09:13 | Outpatient (REF) | payer BC, SELFPAY ==
[2024-03-10 21:54] LABS: Testosterone, Free 43.5 pg/mL (35.0-155.0); Testosterone, Total 213 ng/dL (250-1100)
== END 2024-03-04 09:14 | disposition home or self-care (01) ==
LOC: HO.LAB 09:13
PROVIDERS: Visit Provider Nurse Practitioner Family
DX: E11.69 Type 2 diabetes mellitus with other specified complication (principal); N52.1 Erectile dysfunction due to diseases classified elsewhere
CPT/HCPCS: 36415; 84402; 84403

== ENCOUNTER 2024-06-02 15:42 | Outpatient (AMB) | payer BC, SELFPAY ==
--- NOTE | 2024-06-02 16:04 | A.OFFVIS_ITS ---
Intake Visit Reasons: 3m/Testo (set) Intake Note: Patient presents today for follow up on: erectile dysfunction Urology Medication:Tadalafil Antibiotic Allergy:PENICILLINS Blood Thinner:NONE Stack Clerk Required: Yes Accompanied by: Self / Same As Patient Allergies cortisone [CORTISONE] Allergy (Unknown, Verified 06/02/24 16:50) TACHYCARDIA Penicillins [PCN] Allergy (Unknown, Verified 06/02/24 16:50) HIVES Medication List - Last Reconciled 06/02/24 by TAMRA Booth-WILLY aspirin 81 mg PO DAILY atorvastatin 20 mg PO DAILY lisinopril 5 mg PO DAILY tadalafil (Cialis) 5 mg PO DAILY 90 days tadalafil 20 mg PO .PRN 90 days testosterone enanthate (Xyosted) 75 mg (0.5 mL) subcut QWEEK 30 days HPI Comments Details: Yuri is a 53-year-old [place]-speaking male patient of Dr. Seo. He has a past medical history of hypertension, hyperlipidemia, and hypogonadism. He presents to the office today for follow-up of his lower urinary tract symptoms and hypogonadism. In discussion with the patient today he reports despite testosterone gel replacement as prescribed by [facility] urologist he continues to feel fatigued, low libido, and issues maintaining his erections. He had previously seen Dr. Charli moore and had been started on oxybutynin 5 mg daily for ongoing lower urinary tract symptoms of urinary frequency and nocturia he had been experiencing however did not find this helpful in treating his symptoms. Previous workup has included a retroperitoneal ultrasound noting bilateral kidneys with no calculi, lesions, and or hydronephrosis. The bladder is well distended and normal. Bladder jets are demonstrated. Pre void bladder volume is approximately 180 mL. Postvoid bladder volume is approximately 30 mL. Enlarged prostate of approximately 35 mL. PSA and testosterone levels are as follows: PSA: 09/20 0.3 Testosterone: 4/19 66, 07/19 213, 03/20 213 He reports previously trialing injectable IM testosterone therapy however did not wish to continue with injections and therefore he was switched to topical gel however this has also not been effective in treating his hypogonadism. He is currently on testosterone gel at 4 pumps per day and continues with low testosterone levels and symptoms of hypogonadism. He does report feeling low- dose 5 mg Cialis daily has been helpful in maintaining his erections however it is not always consistent. He discusses not currently being sexually active. He otherwise denies incontinence, hematuria, dysuria, foul smelling urine, changes to urinary stream, flank pain, fever, and or chills. We discussed at length further treatment options of hypogonadism as well as potential causes of hypogonadism. In office urinalysis results reviewed with the patient today. He otherwise offers no other issues or concerns at this time. [facility] Surgical History Hx of knee surgery History of cholecystectomy Family History Father Heart attack No family history of cancer Mother No problems noted. Social History Alcohol intake: current Alcohol intake frequency: holidays/special occasions only Patient Tobacco Use Status: Never used Tobacco Review of Systems Const All systems reviewed & are unremarkable except as noted in HPI and below Physical Exam Const General: cooperative, healthy appearing, comfortable, no acute distress, well developed, alert and awake Nutritional Appearance: overweight Orientation/consciousness: patient oriented x3 Limitations: no limitations HEENT Head: Yes normal to inspection, Yes normocephalic and Yes atraumatic Ears: hearing grossly normal bilaterally Eyes General: appearance normal, both eyes and all related structures Neck Neck: Yes normal visual inspection and Yes trachea midline Chest Chest palpation & inspection: normal inspection of the chest Resp Effort & Inspection: normal respiratory effort and able to speak in complete sentences Cardio Rate: regular rate GI Inspection: Yes normal to inspection General: Yes no CVA tenderness Back/Spine/Pelvis Back: no CVA tenderness Skin General skin exam: no rashes or lesions noted Neuro General: patient oriented x3 Extrem General: Yes normal to inspection Psych Appearance: grossly normal and well kempt Mental Status: mental status grossly normal Speech and movement: Normal speech and movement present and Clear speech present Affect: normal affect Attitude: cooperative Thought process: Normal thought process present Thought content: Normal thought content present Insight: Fair insight present (Psych) Judgement: Fair judgement present (Psych) Results AMB Urinalysis, Automated UA Leukoctes 0 Micki/uL Last Edit by TateMePleasebaltazar Walsh on 06/02/24 16:43 UA Nitrite Last Edit by [facility] Travadorjob on 06/02/24 16:43 UA Urobilinogen 0.2 mg/dL Last Edit by Biscootjob on 06/02/24 16:43 UA Protein 0 mg/dL Last Edit by Biscoot on 06/02/24 16:43 UA pH 7.0 Last Edit by [facility] Travadorjob on 06/02/24 16:43 UA Blood 0 Alberto/uL Last Edit by Biscootjob on 06/02/24 16:43 UA Specific [place] 1.010 Last Edit by Biscootjob on 06/02/24 16:43 UA Ketone Negative Last Edit by Biscootjob on 06/02/24 16:43 UA Bilirubin 0 mg/dL Last Edit by [employer] on 06/02/24 16:43 UA Glucose 0 mg/dL Last Edit by [facility] Travadorjob on 06/02/24 16:43 Results Reviewed Results Reviewed: Laboratory Last Values Urine pH (Auto) 7.0 06/02/24 16:42 Specific [place] (Auto) 1.010 06/02/24 16:42 Urine Protein (Auto) 0 mg/dL 06/02/24 16:42 Glucose (UA)(Auto) 0 mg/dL 06/02/24 16:42 Urine Ketones (Auto) Negative 06/02/24 16:42 Urine Blood (Auto) 0 Alberto/uL 06/02/24 16:42 Urine Bilirubin (Auto) 0 mg/dL 06/02/24 16:42 Urine Urobilinogen (Auto) 0.2 mg/dL 06/02/24 16:42 Leukocyte Esterase (Auto) 0 Micki/uL 06/02/24 16:42 Assessment & Plan Assessment & Plan (1) Erectile dysfunction: Code(s): N52.9 - Male erectile dysfunction, unspecified Category: Medical (2) OAB (overactive bladder): Code(s): N32.81 - Overactive bladder Category: Medical (3) BPH loc w urin obs/LUTS: Code(s): N40.1 - Benign prostatic hyperplasia with lower urinary tract symptoms Category: Medical (4) Hypogonadism in male: Code(s): E29.1 - Testicular hypofunction Category: Medical Plan In office urinalysis results reviewed with the patient today; as noted above. Discussed importance of compliance with CPAP for improvement in nocturia as well as overall health and well-being. Discussed at length potential causes for lower urinary tract symptoms patient is experiencing. Discussed bladder triggers/irritants. Continue Cialis 5 mg daily as discussed and prescribed; refill provided. Testosterone results reviewed with the patient today; as noted above. We discussed at length potential causes of hypogonadism discussed further treatment options; this was discussed at length Start Xyosted as discussed and prescribed Will obtain CBC, PSA, and testosterone free and total in 3 months Follow-up in 3 months with lab to be completed prior and PVR at next office visit; or sooner with any issues, concerns, and or questions. Orders: Orders AMB Urinalysis Automated Today Z13.9 - Encounter for screening, unspecified Medications: New testosterone enanthate (Xyosted) 75 mg (0.5 mL) subcut QWEEK 30 days 2.5 mL 3RF Patient Instructions: The patient had an opportunity to ask questions regarding the treatment plan. All questions were answered. Physical exam, labs, and imaging were discussed and reviewed in detail. As well as risks, benefits, and discussion of treatment choices. No major barriers to understanding were identified. The patient expressed understanding and agreement with the above treatment plan. The patient was made aware they should contact our office by phone for worsening of their current condition, the appearance of new symptoms, or with any questions or concerns. Compliance is encouraged with any medications and follow up testing that is ordered. It is a privilege to be allowed the opportunity to participate in? your urological care.? Again, if you have any questions or concerns If you have any questions or concerns please do not hesitate to contact me. The office is [phone]. This note is constructed using voice recognition software. While every effort has been made to ensure accuracy carbon sequestration plant engineer errors may have been included. Yours sincerely, Ellen Grissom, DELIVERY RECRUITER-BC Coding Level of Care Code Est Pt Level 4 (15840) Diagnoses Erectile dysfunction N52.9 OAB (overactive bladder) N32.81 BPH loc w urin obs/LUTS N40.1 Hypogonadism in male E29.1 Time Spent (min) 30
== END 2024-06-02 16:45 | disposition home or self-care (01) ==
LOC: HO.HUSH 15:43
PROVIDERS: PCP Internal Medicine; Visit Provider Nurse Practitioner Family
DX: N52.9 Male erectile dysfunction, unspecified (principal); N32.81 Overactive bladder; N40.1 Benign prostatic hyperplasia with lower urinary tract symptoms; E29.1 Testicular hypofunction; Z13.9 Encounter for screening, unspecified
CPT/HCPCS: 99214

== ENCOUNTER → 2024-06-02 15:42 | Outpatient (BNVA) | payer BC, SELFPAY | PROVIDERS: PCP Internal Medicine; Visit Provider Nurse Practitioner Family | DX: E29.1 Testicular hypofunction (principal); N52.9 Male erectile dysfunction, unspecified; N32.81 Overactive bladder; N40.1 Benign prostatic hyperplasia with lower urinary tract symptoms; N13.8 Other obstructive and reflux uropathy; Z79.899 Other long term (current) drug therapy | CPT/HCPCS: 81003 ==

== ENCOUNTER 2024-09-04 07:07 | Outpatient (REF) | payer BC, SELFPAY ==
[2024-09-04 08:25] LABS: Hematocrit 47.6 % (42.0-52.0); Hemoglobin 15.8 g/dl (14.0-18.0); Mean Corpuscular HGB Conc 33.2 g/dl (31.0-36.0); Mean Corpuscular Hemoglobin 29.7 pg (27.0-33.0); Mean Corpuscular Volume 89.5 fL (80.0-98.0); Mean Platelet Volume 11.3 fL (9.4-12.4); Platelet Count 217 X10*3/uL (160-400); Red Blood Count 5.32 X10*6/uL (4.60-5.80); Red Cell Distribution Width 13.2 % (11.0-16.0); White Blood Count 5.5 X10*3/uL (4.8-10.8)
== END 2024-09-04 07:08 | disposition home or self-care (01) ==
LOC: HO.LAB 07:07
PROVIDERS: PCP Internal Medicine; Visit Provider Nurse Practitioner Family
DX: E29.1 Testicular hypofunction (principal); N40.1 Benign prostatic hyperplasia with lower urinary tract symptoms; Z12.5 Encounter for screening for malignant neoplasm of prostate
CPT/HCPCS: 36415; 84153; 84402; 84403; 85027

== ENCOUNTER 2024-09-18 07:05 | Outpatient (REF) | payer BC, SELFPAY ==
--- OUTSIDE RECORDS SUMMARY | 2024-09-18 07:08 | XMS_ITS | Encounter Summary ---
Author Organization [employer] Address [address] [place] [address] [address] [place] [address] Care Team Providers Care Sign Maker Name Role Phone Darcy Seo MD Primary Care Provider + Reason for Visit * Reason Comments Med Refill Encounter Details Date Type Department Care Team (Late Contact Info) Description 04/16/2023 Refill [facility] [address] [place], [place] [phone] Darcy Seo MD [address] [place], [place] [phone] Mixed hyperlipidemia Social History Tobacco Use Types Packs/Day Years Used Date Smoking Tobacco: Never Smokeless Tobacco: Never Alcohol Use Standard Drinks/Week Comments Yes 0 (1 standard drink = 0.6 oz pur e alcohol) oca Depression Answer Date Recorded Patient Health Questionnaire-9 Score 0 10/28/2022 Depression Answer Date Recorded Patient Health Questionnaire-2 Score 0 10/28/2022 Sex and Gender Information Value Date Recorded Sex Assigned at Male 05/27/2022 10:20 AM EDT Legal Sex Male 10:20 AM EDT Gender Identity Male 05/27/2022 10:20 AM EDT Sexual Orientation Straight 05/27/2022 10 :20 AM EDT documented as of this encounter Plan of Treatment Upcoming Encounters Date Type Department Care Team (Late Contact Info) Description 10/11/2024 1:30 PM EDT Office Visit [facility] [address] [place], [place] [phone] Pj Sullivan DMD [address] [place] [address], [place] [phone] 10/22/2024 11:45 AM EDT Office Visit [facility] [address] [place] [address] [phone] Daryc Seo MD [address] [place] [address] [phone] 11/12/2024 10:45 AM EDT Office Visit [facility] [address] [place] [address] [phone] Darcy Seo MD [address] [place] [address] [phone] documented as of this encounter Visit Diagnoses Diagnosis Mixed hyperlipidemia documented in this encounter Additional Health Concerns Assessment Noted Time PHQ-9 Depression Total Score: 0 10/29/19 23 9:42 AM EDT documented as of this encounter Care Teams Sign Maker Relationship Specialty Start Date End Date Darcy Seo MD [address] [place] [address] [phone] PCP - General Family Medicine 05/01/16 documented as of this encounter
--- OUTSIDE RECORDS SUMMARY | 2024-09-18 07:08 | XMS_ITS | Encounter Summary ---
Author Organization [employer] Address [address] [facility] [address] [place] [address] Care Team Providers Care Credit Collections Analyst Name Role Phone Darcy Seo MD Primary Care Provider + Encounter Details Date Type Department Care Team (Late st Contact Info) Description 10/14/2022 Orders Only [facility] [address] [place], [place] [phone] Katarina Good LPN Social History Tobacco Use Types Packs/Day Years Used Date Smoking Tobacco: Never Assessed Sex and Gender Information Value Date Recorded Sex Assigned at Male 05/27/2022 10:20 AM EDT Legal Sex Male 10:20 AM EDT Gender Identity Male 05/27/2022 10:20 AM EDT Sexual Orientation Straight 05/27/2022 10 :20 AM EDT documented as of this encounter Plan of Treatment Upcoming Encounters Date Type Department Care Team (Late st Contact Info) Description 10/11/2024 1:30 PM EDT Office Visit [facility] [address] [place] [address] Pj Sullivan, MARIELENA [address] [place] [address] 10/22/2024 11:45 AM EDT Office Visit [facility] [address] [place] [phone] Darcy Seo MD [address] [place] [address] 11/12/2024 10:45 AM EDT Office Visit [facility] [address] [place] [address] Darcy Seo MD [address] [place] [address] documented as of this encounter Visit Diagnoses Not on filedocumented in this encounter Care Teams Credit Collections Analyst Relationship Specialty Start Date End Date Darcy Seo MD [address] [place] [phone] PCP - General Family Medicine 05/01/16 documented as of this encounter
--- OUTSIDE RECORDS SUMMARY | 2024-09-18 07:08 | XMS_ITS | Encounter Summary ---
Author Organization [employer] Address 75 [facility] 7t [place] [address] Care Team Providers Care Pasteurizing Supervisor Name Role Phone Darcy Seo MD Primary Care Provider + Encounter Details Date Type Department Care Team ([facility] st Contact Info) Description 09/04/2024 Orders Only GENERIC EXTERNAL DATA DEPARTMENT Provider, Generic External Data Social History Tobacco Use Types Packs/Day Years Used Date Smoking Tobacco: Never Smokeless Tobacco: Never Alcohol Use Standard Drinks/Week Comments Yes 0 (1 standard drink = 0.6 oz pur e alcohol) oca Alcohol Answer Date Recorded Frequency of Alcohol Consumption Not on file 10/27/2023 Average Number of Drinks Not on file 024 Frequency of Binge Drinking Not on file 07/2023 Score 0 10/27/2023 Depression Answer Date Recorded Patient Health Questionnaire-9 Score 3 10/27/2023 Patient Health Questionnaire-9 Score 3 10/27/2023 Last PHQ-9: Questionnaire Data Not on file 0 10/27/2023 Housing Stability Answer Date Recorded What is your housing situation today? I have kamari english 05/21/[address] you li ve. Do you have problems with any of the following? None of the above 05/21/2023 Food Insecurity Answer Date Recorded Within the past 12 months, y ou worried that your food would run out before you got money to buy more: Never True 05/21/2023 Within the past 12 months,th e food you bought just didn't last and you didn't have enough money to get more: Never True Transportation Answer Date Recorded In the past 12 months, has l ack of transportation kept you from medical appts, meetings, work or from getting things needed for daily living? No 05/21/2023 Utilities Answer Date Recorded In the past 12 months, has t he electric, gas, oil or water company threatened to shut off services in your home? No 05/21/2023 Depression Answer Date Recorded Patient Health Questionnaire-2 Score 0 10/27/2023 Sex and Gender Information Value Date Recorded Sex Assigned at Male 05/27/2022 10:20 AM EDT Legal Sex Male 10:20 AM EDT Gender Identity Male 05/27/2022 10:20 AM EDT Sexual Orientation Straight 05/27/2022 10 :20 AM EDT documented as of this encounter Plan of Treatment Upcoming Encounters Date Type Department Care Team (Late st Contact Info) Description 10/11/2024 1:30 PM EDT Office Visit [facility] ADULT DENTAL [address] [place] [phone] Pj Sullivan, DMD [address] [place] [address] 10/22/2024 11:45 AM EDT Office Visit [facility] MEDICINE [address] [place] [address] Darcy Seo MD [address] [place] [address] 11/12/2024 10:45 AM EDT Office Visit [address] [phone] Darcy Seo MD [address] [place] [phone] documented as of this encounter Procedures Procedure Name Priority Date/Time Associated Diagnosis Comments CBC Routine 09/04/2024 7:35 AM EST TESTOSTERONE, FREE (DIALYSIS) AND TOTAL,MS Routine 09/04/2024 7:35 AM EST PSA, TOTAL Routine 09/04/2024 7:35 AM EST documented in this encounter Results * Testosterone, Free (Dialysis) And Total, MS (09/04/2024 7:35 AM EST) Testosterone, Total TNP ng/dL [facility] Comment:TEST NOT PERFORMED.Q uantity not sufficient.THIS TEST WAS PERFORMED AT:[id number] [place] [id number] AMANDA MD,PHD Testosterone, Free TNP [facility] Comment:QNS 09/04/2024 7:35 AM EST 09/04/2024 7:35 AM EST Generic External Data Provider LAB BLOOD ORDERAB LES Final Result Performing Organization Address City/[facility]/ZIP Co de Phone Number [facility] [address] [place] [phone] * PSA,Total (09/04/2024 7:35 AM EST) Prostate Specific Antigen 0.40 <0.05 - 4.0 ng/mL [facility] Comment:PSA methodology: Abb vicky Alisanchoty i ChemiluminescentMicroparticle Immunoassay (CMIA) 09/04/2024 7:35 AM EST 09/04/2024 7:35 AM EST Generic External Data Provider LAB BLOOD ORDERAB LES Final Result Performing Organization Address City/[facility]/ZIP Co de Phone Number [facility] [address] [place] [phone] * CBC (09/04/2024 7:35 AM EST) White Blood Count 5.5 4.8 - 10.8 X10*3/uL [facility] Red Blood Count 5.32 4.60 - 5.80 X10*6/uL [facility] Hemoglobin 15.8 14.0 - 18.0 g/dl [facility] Hematocrit 47.6 42.0 - 52.0 % [facility] Mean Corpuscular Volume 89.5 80.0 - 98.0 fL [facility] Mean Corpuscular Hemoglobin 29.7 27.0 - 33.0 pg [facility] Mean Corpuscular HGB Conc 33.2 31.0 - 36.0 g/dl [facility] Red Cell Distribution Width 13.2 11.0 - 16.0 % [facility] Platelet Count 217 160 - 400 X10*3/uL [facility] Mean Platelet Volume 11.3 9.4 - 12.4 fL [facility] NRBC Pct Auto 0.0 0.0 - 0.2 /100WBC [facility] NRBC Abs Auto 0.000 0.0 - 0.012 X10*3/uL [facility] 09/04/2024 7:35 AM EST 09/04/2024 7:35 AM EST us Generic External Data Provider LAB BLOOD ORDERAB LES Final Result Performing Organization Address City/State/[facility] Co de Phone Number [facility] [address] [place] [phone] documented in this encounter Visit Diagnoses Not on filedocumented in this encounter Additional Health Concerns Assessment Noted Time PHQ-9 Depression Total Score: 3 10/27/19 24 2:40 PM EDT documented as of this encounter Care Teams Pasteurizing Supervisor Relationship Specialty Start Date End Date Darcy Seo MD [address] [place] [phone] PCP - General Family Medicine 05/01/16 documented as of this encounter
--- OUTSIDE RECORDS SUMMARY | 2024-09-18 07:08 | XMS_ITS | Encounter Summary ---
Author Organization [employer] Address 75 [facility] 7t [place] [address] Care Team Providers Care Supervisor Gelatin Plant Name Role Phone Darcy Seo MD Primary Care Provider + Encounter Details Date Type Department Care Team (Late Contact Info) Description 11/05/2022 Orders Only [facility] MEDICINE [address] [place] [address] [phone] Darcy Seo MD [address] [place], [place] [phone] Learning difficulty (Primary Dx); Metabolic syndrome X; Klinefelter syndrome; Obstructive sleep apnea syndrome; Primary male hypogonadism Social History Tobacco Use Types Packs/Day Years Used Date Smoking Tobacco: Never Smokeless Tobacco: Never Depression Answer Date Recorded Patient Health Questionnaire-9 Score 0 10/28/2022 Depression Answer Date Recorded Patient Health Questionnaire-2 Score 0 10/28/2022 Sex and Gender Information Value Date Recorded Sex Assigned at Male 05/27/2022 10:20 AM EDT Legal Sex Male 10:20 AM EDT Gender Identity Male 05/27/2022 10:20 AM EDT Sexual Orientation Straight 05/27/2022 10 :20 AM EDT COVID-19 Exposure Response Date Recorded In the last 10 days, have yo u been in contact with someone who was confirmed or suspected to have Coronavirus/COVID-19? No / Unsure 10/28/2022 9:23 AM EDT documented as of this encounter Plan of Treatment Upcoming Encounters Date Type Department Care Team (Late Contact Info) Description 10/11/2024 1:30 PM EDT Office Visit [facility] ADULT DENTAL [address] [place] [address] Pj Sullivan, DMD [address] [place] [address] 10/22/2024 11:45 AM EDT Office Visit [facility] MEDICINE [address] [place] [address] Darcy Seo MD [address] [place] [phone] 11/12/2024 10:45 AM EDT Office Visit [facility] MEDICINE [address] [place] [address] Darcy Seo MD [address] [place] [phone] documented as of this encounter Visit Diagnoses Diagnosis Learning difficulty- Primary Unspecified delay in development Metabolic syndrome X Dysmetabolic Syndrome X Klinefelter syndrome Klinefelter's syndrome Obstructive sleep apnea syndrome Obstructive sleep apnea (adult) (pediatric) Primary male hypogonadism Other testicular hypofunction documented in this encounter Additional Health Concerns Assessment Noted Time PHQ-9 Depression Total Score: 0 10/29/19 23 9:42 AM EDT documented as of this encounter Care Teams Supervisor Gelatin Plant Relationship Specialty Start Date End Date Darcy Seo MD [address] [place] [address] [phone] PCP - General Family Medicine 05/01/16 documented as of this encounter
--- OUTSIDE RECORDS SUMMARY | 2024-09-18 07:08 | XMS_ITS | Encounter Summary ---
Author Organization [employer] Address 75 [facility] 7t [place] [address] Care Team Providers Care Operating Engineer Apprentice Name Role Phone Darcy Seo MD Primary Care Provider + Reason for Visit * Reason Onset Date Comments Med Refill 06/14/2023 Encounter Details Date Type Department Care Team ([facility] st Contact Info) Description 06/14/2023 Refill [facility] MEDICINE [address] [place], [place] [phone] Darcy Seo MD [address] [place], [place] [phone] Mixed hyperlipidemia Social History Tobacco Use Types Packs/Day Years Used Date Smoking Tobacco: Never Smokeless Tobacco: Never Alcohol Use Standard Drinks/Week Comments Yes 0 (1 standard drink = 0.6 oz pur e alcohol) oca Depression Answer Date Recorded Patient Health Questionnaire-9 Score 0 10/28/2022 Housing Stability Answer Date Recorded What is [...] Description 10/11/2024 1:30 PM EDT Office Visit [facility] ADULT DENTAL [address] [place] [phone] Pj Sullivan, DMD [address] [place] [address] 10/22/2024 11:45 AM EDT Office Visit [facility] MEDICINE [address] [place] [phone] Darcy Seo MD [address] [place] [phone] 11/12/2024 10:45 AM EDT Office Visit [facility] MEDICINE [address] [place] [phone] Darcy Seo MD [address] [place] [phone] documented as of this encounter Visit Diagnoses Diagnosis Mixed hyperlipidemia documented in this encounter Additional Health Concerns Assessment Noted Time PHQ-9 Depression Total Score: 0 10/29/19 23 9:42 AM EDT documented as of this encounter Care Teams Operating Engineer Apprentice Relationship Specialty Start Date End Date Darcy Seo MD [address] [place] [phone] PCP - General Family Medicine 05/01/16 documented as of this encounter
--- OUTSIDE RECORDS SUMMARY | 2024-09-18 07:08 | XMS_ITS | Encounter Summary ---
Author Organization [employer] Address [address] [place] [address] 7t [place] [address] Care Team Providers Care Broom Builder Name Role Phone Darcy Seo MD Primary Care Provider + Encounter Details Date Type Department Care Team (Late st Contact Info) Description 10/29/2022 Abstract [facility] MEDICINE [address] [place], [place] [phone] Darcy Seo MD [address] [place] [address] Social History Tobacco Use Types Packs/Day Years [...] Description 10/11/2024 1:30 PM EDT Office Visit [facility] ADULT DENTAL [address] [place], [place] [phone] Pj Sullivan DMD [address] [place] [address] 10/22/2024 11:45 AM EDT Office Visit [facility] MEDICINE [address] [place] [phone] Darcy Seo MD [address] [place], [place] [phone] 11/12/2024 10:45 AM EDT Office Visit [facility] MEDICINE [address] [place] [address] [phone] Darcy Seo MD [address] [place], [place] [phone] documented as of this encounter Visit Diagnoses Not on filedocumented in this encounter Additional Health Concerns Assessment Noted Time PHQ-9 Depression Total Score: 0 10/29/19 23 9:42 AM EDT documented as of this encounter Care Teams Broom Builder Relationship Specialty Start Date End Date Darcy Seo MD [address] [place] [address] [phone] PCP - General Family Medicine 05/01/16 documented as of this encounter
--- OUTSIDE RECORDS SUMMARY | 2024-09-18 07:08 | XMS_ITS | Encounter Summary ---
Author Organization [employer] Address 75 [facility] 7t [place] [address] Care Team Providers Care Sales Department Clerk Name Role Phone Darcy Seo MD Primary Care Provider + Encounter Details Date Type Department Care Team ([facility] [place] st Contact Info) Description 07/22/2023 Orders Only [facility] MEDICINE [address] [place], [place] [phone] Kelsi Roche MD [address] [place], [place] [phone] Primary male hypogonadism (Primary Dx); Low testosterone Social History Tobacco Use Types Packs/Day Years [...] Description 10/11/2024 1:30 PM EDT Office Visit [facility] ADULT DENTAL [address] [place] [phone] Pj Sullivan, MARIELENA [address] [place] [address] 10/22/2024 11:45 AM EDT Office Visit [facility] MEDICINE [address] [place] [phone] Darcy Seo MD [address] [place] [address] 11/12/2024 10:45 AM EDT Office Visit [address] [address] Darcy Seo MD [address] [place] [phone] documented as of this encounter Visit Diagnoses Diagnosis Primary male hypogonadism- Primary Other testicular hypofunction Low testosterone documented in this encounter Additional Health Concerns Assessment Noted Time PHQ-9 Depression Total Score: 0 10/29/19 23 9:42 AM EDT documented as of this encounter Care Teams Sales Department Clerk Relationship Specialty Start Date End Date Darcy Seo MD [address] [place] [phone] PCP - General Family Medicine 05/01/16 documented as of this encounter
--- OUTSIDE RECORDS SUMMARY | 2024-09-18 07:08 | XMS_ITS | Clinical Summary ---
Author Organization [employer] Address [address] [facility] 7[address] [place] [address] Care Team Providers Care Artificial Breeding Technician Name Role Phone Darcy Seo MD Primary Care Provider + Allergies Active Allergy Reactions Criticality Noted Date Comments Cortisone 12/25/2016 Hydrocortisone Shortness of breath High 09/12/2021 Penicillin V 09/28/2010 Other reaction(s): unspecified Penicillins Hives,Rash Low 09/28/2010 Other reaction(s): unspecified Medications cholecalciferol (Vitamin D-3) 1.25 MG (40173 UT) capsule 07/30/19 23 Active ketotifen (Zaditor) 0.025 % ophthalmic solution Administer 1 drop into both eyes 2 times daily. 10 mL 12/27/19 23 Active Additional Information Patient not taking.Reported on 09/14/2024 gabapentin (Neurontin) 100 MG capsule TAKE 3 CAPSULES(300 MG) BY MOUTH TWICE DAILY 60 capsule 10/15/19 24 Active Additional Information Patient not taking.Reported on 09/14/2024 Aspirin Low Dose 81 MG EC tabletIndications: Nonintractable headache, unspecified chronicity pattern, unspecified headache type,Essential hypertension TAKE 1 TABLET(81 MG) BY MOUTH IN THE MORNING 90 tablet 3 11/25/19 24 Active tadalafil (Cialis) 5 MG tablet Take 5 mg by mouth Once per day. 11/27/19 24 Active testosterone cypionate (Depo-Testosterone ) 100 MG/ML injection Inject 0.5 mL into the shoulder, thigh, or buttocks every 4 (four) weeks. Active oxybutynin (Ditropan) 5 MG tabletIndications: BPH Take 5 mg by mouth Once per day. Active senna-docusate sodium (Senokot-S) 8.6-50 MG tablet Take 1 tablet by mouth Once per day. 30 tablet 3 01/12/20 24 025 Active Additional Information Patient not taking.Reported on 09/14/2024 lisinopril 5 MG tabletIndications: Essential hypertension Take 1 tablet (5 mg) by mouth Once per day. 90 tablet 3 01/12/20 24 Active Calcium Carbonate-Vit D-Min (Caltrate 600+D Plus Minerals) 600-800 MG-UNIT tablet 1 tab po/d 90 tablet 3 02/17/20 24 Active Additional Information Patient not taking.Reported on 09/14/2024 atorvastatin (Lipitor) 20 MG tabletIndications: Mixed hyperlipidemia Take 1 tablet (20 mg) by mouth Once per day. 90 tablet 3 06/15/20 24 025 Active acetaminophen (Tylenol) 500 MG tabletIndications: Hypersensitivity, initial encounter,Gingivit is Take 1 tablet (500 mg) by mouth every 6 (six) hours if needed for mild pain for up to 20 doses. 20 tablet 09/14/19 25 Active ibuprofen 600 MG tablet Take 1 tablet (600 mg) by mouth every 6 (six) hours if needed for mild pain for up to 20 doses. 20 tablet 09/14/19 25 Active Active Problems Problem Noted Date Diagnosed Date Heartburn 09/14/2024 Overview (09/14/2024): omeprazole prn Hypersensitivity 09/14/2024 Gingivitis 09/14/2024 Slow transit constipation 01/12/2024 Assessment & Plan (01/12/2024 2:06 PM EDT): Likely related to Ca and Iron content on MVI Increase water and fiber intake, start sennakot prn. Osteopenia of lumbar spine 01/12/2024 Overview (01/12/2024): Dexa scan on 10/2023 Assessment & Plan (01/12/2024 2:11 PM EDT): Sec to hypogonadism, I told him he needs to fu endo to adjust testosterone rx/ Advised to continue Ca + D and OTC MVI Had vit D repleted earlier this year Will recheck vit D and decide on further rx. At high risk for osteoporosis 11/03/2023 Ankle arthritis 09/23/2023 Assessment & Plan (09/23/2023 4:15 PM EST): RO psoriatic arthritis Order labs Take tylenol prn Cellulitis of right lower extremity 09/23/2023 Assessment & Plan (09/23/2023 4:16 PM EST): Allergic to PCN, will give bactrim to cover MRSA Order labs and Rxay ankle to ro osteomyelitis FU in 2-3w Use TAC ointment to rash Elevate his leg Benign localized prostatic h yperplasia with lower urinary tract symptoms (LUTS) 07/10/2023 Assessment & Plan (07/10/2023 1:29 PM EST): Refer to Urology Dysuria 03/10/2023 Memory impairment 03/10/2023 IFG (impaired fasting glucose) 03/10/2023 Hordeolum externum left lower eyelid 11/28/2022 Assessment & Plan (11/28/2022 1:52 PM EDT): recomended heat to affected eye use erythromycin ointment x 1 week and reconsult PRN Nonintractable headache 11/28/2022 Assessment & Plan (11/28/2022 1:54 PM EDT): unclear if related to HTN, allergies use Tylenol prn and check BP prn headahce reconsult PRN recommended proper sleep neuopsychological test pending to evalaute patient ability to learn new concepts or the need for special accommodations, copy of the referral given to pt to fu Klinefelter syndrome 11/05/2022 Assessment & Plan (07/10/2023 1:29 PM EST): Patient has hypogonadism. I will review neuropsychological testing May need accommodation for testing on his citizenship test Encounter for preventive health examination 09/2022 Assessment & Plan (10/28/2023 5:04 PM EDT): Discussed with patient re increase fresh fruit and vegetable intake. Counseled re moderate exercise as tolerated, up to 20min/d Patient feels safe at home. Bone density test: TBO due to high risk osteoporosis. Eye exam: UTD, next one due on 2024 CRC screen: UTD, next one due on 2030 Lipids/FBS: UTD, due on 09/2024 Vaccinations: Check Hep B titers, other adult Izs are uTD. Dental visit: Over due, recommended to make an appt at a local dental clinic. Assessment & Plan (10/28/2022 9:00 PM EDT): Discussed with patient re increase fresh fruit and vegetable intake. Counseled re moderate exercise as tolerated, up to 20min/d Patient feels safe at home. Eye exam: refer to opto clinic CRC screen: Colonoscopy up to date, next one due 2030 Lipids/FBS: TBO Vaccinations: Declined covid booster today. Order IZ titers. Td up todate, next one due on 2029, fu after titers. Diarrhea due to malabsorption 10/28/2022 Assessment & Plan (10/28/2022 11:37 AM EDT): Counseled to avoid fat foods I will give a prescription for one month to use cholestyramine PRN only especially given the fact that he has underlying constipation. Acute pansinusitis 10/07/2022 Chronic tension-type headache 10/07/2022 Contusion of head 10/07/2022 Essential hypertension 10/07/2022 Assessment & Plan (01/12/2024 2:05 PM EDT): Controlled. I congratulated him for weight reduction Continue lisinopril 5mg and monitor BP at home. FU with email production specialist to adjsut meds if needed or fu me in 6mo or earlier prn. Counseled re low salt diet/increase moderate physical activity. Check home BP BIW and prn CP/CARL/SAHNI Non smoking patient. Assessment & Plan (07/10/2023 1:27 PM EST): Barely controlled. Repeated 145/85 Continue 5 MG lisinopril/hctz Counseled re low salt diet/increase moderate physical activity. Check home BP BIW and prn CP/CARL/SAHNI Call back if BP continues above 145/85 F/u in 6 MOS Non smoking patient. Assessment & Plan (11/28/2022 1:55 PM EDT): Controlled. Continue Lisinopril 5mg and FU in 3 months Counseled re low salt diet/increase moderate physical activity. Check home BP BIW and prn CP/CARL/SAHNI Non smoking patient. Assessment & Plan (10/28/2022 11:36 AM EDT): Controlled. Continue lisinpril 5mg. Counseled re low salt diet/increase moderate physical activity. Check home BP BIW and prn CP/CARL/SAHNI Non smoking patient. History of cholecystectomy 10/07/2022 Learning difficulty 10/07/2022 Assessment & Plan (10/28/2022 9:05 PM EDT): Discussed at previous visit. He had been referred to neuropsych testing but needed BE prior to test. He was evaluated by N (Adrian Rutledge ) on 05/27/22 but was unable to get in touch with the next licensing manager (?cousleing? Neuropsych? Psychologist?). I will contact N so that they can fu with patient To complete Testing, he needs it to see if he can request a testing waiver for citizenship test. Palpitations 10/07/2022 Right tennis elbow 10/07/2022 Varicose veins of lower extremity 10/07/2022 Assessment & Plan (10/27/2023 3:27 PM EDT): Has chronic skin changes, I advised to use compression stockings. Visual impairment 10/07/2022 Assessment & Plan (10/28/2022 9:01 PM EDT): Refer to optometry S/P TKR (total knee replacement) using cement, l eft 08/06/2022 Hyperlipidemia 02/21/2022 Paronychia of finger 12/08/2018 Primary osteoarthritis of left knee 12/08/2018 Erectile dysfunction due to diseases classified elsewhere 10/30/2018 Assessment & Plan (07/10/2023 1:31 PM EST): Most likely related to Hypogonadism Will check testosterone levels Continue testosterone Will refer to urology Assessment & Plan (10/28/2022 11:35 AM EDT): Doing well on Viagra 50mg. Counseled to continue with testosterone injection for hypogonadism and FU with freight tallier Metabolic syndrome X 05/19/2017 Disorder of upper respiratory system 09/06/2016 Primary osteoarthritis of both knees 09/06/2016 Assessment & Plan (10/27/2023 3:28 PM EDT): S/p bilateral TKR. Complete PT, may need FMLA to complete PT Assessment & Plan (09/23/2023 4:15 PM EST): Continue PT, fu with orthopedics. 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 TKR Strain of tendon of medial thigh muscle 09/06/19 17 Primary male hypogonadism 09/06/2016 Assessment & Plan (01/12/2024 2:07 PM EDT): Using testosterone gel, never fu with end, apparently didn't receive appt. New referral for endocrinology Treat osteopenia. Assessment & Plan (10/28/2023 5:05 PM EDT): Has ED, restarted on testosterone gel , needs to fu with endocrinology Order BMD test due to high risk osteoporosis Obstructive sleep apnea syndrome 09/06/2016 Encounters Date Type Department Care Team Description 09/14/2024 11:30 AM EST Office Visit [facility] ADULT DENTAL [address] [place] [address] Henry Trevino DDS Hypersensitivity, initial encounter (Primary Dx); Gingivitis 09/04/2024 Orders Only GENERIC EXTERNAL DATA DEPARTMENT Provider, Generic External Data 08/25/2024 Telephone [facility] [address] [place] [address] Darcy Seo MD October08/08/2024 Refill [facility] [address] [place] [address] Jodie Mazariegos MD Mixed hyperlipidemia from Last 3 Months Immunizations Name Administration Dates Next Due Influenza injectable quadriv alent IIV4 with preservative 05/19/2017 Influenza injectable quadriv alent preservative free 05/20/2023,04/11/2022,05/11/2020 Influenza, IIV3, injectable 06/14/2011 Pfizer Covid-19 Vaccine 12+ 07/10/2023 TD (adult), 2 Lf tetanus tox oid, preservative free, adsorbed 05/11/2020 Tdap 08/03/2009 Zoster, Recombinant 10/02/2023,08/03/2020,2019 Social History Tobacco Use Types Packs/Day Years Used Date Smoking Tobacco: Never Smokeless Tobacco: Never Tobacco Cessation:Counseling Given: Not Answered Alcohol Use Standard Drinks/Week Comments Yes 0 (1 standard drink = 0.6 oz pur e alcohol) ocasionally Alcohol Answer Date Recorded Frequency of Alcohol [...] your housing situation today? I have kamari sing 05/21/[address] you li [...] Orientation Straight 05/27/2022 10 :20 AM EDT Last Filed Vital Signs Vital Sign Reading Time Taken Comments Blood Pressure 160/100 09/14/2024 11:37 AM EST Pulse 68 01/12/2024 1:16 PM EDT Temperature 35.9 ??C (96.6 ??F) 01/12/2024 1:16 PM ED T Respiratory Rate 20 01/12/2024 1:16 PM EDT Oxygen Saturation 98% 10/27/2023 2:35 PM EDT Inhaled Oxygen Concentration - - Weight 121 kg (266 lb) 01/12/2024 1:16 PM EDT Height 193 cm (6' 4 ) 01/12/2024 1:16 PM EDT Body Mass Index 32.38 01/12/2024 1:16 PM EDT Plan of Treatment Upcoming Encounters Date Type Department Care Team (Late st Contact Info) Description 10/11/2024 1:30 PM EDT Office Visit [facility] ADULT [facility] [address] [place] [address] Pj Sullivan, DMD [address] [place], [place] [phone] 10/22/2024 11:45 AM EDT Office Visit [facility] MED[facility] [address] [place] [address] Darcy Seo MD [address] [place], [place] [phone] 11/12/2024 10:45 AM EDT Office Visit [facility] [address] [place] [address] Darcy Seo MD [address] [place], [place] [phone] Health Maintenance Due Date Last Done Comments CT Colonography 1968 FIT DNA/Cologuard 1968 FIT 1968 FOBT 1968 Sigmoidoscopy 1968 Hepatitis B Vaccines (1 of 3 - 19+ 3-dose series) 11/30/1987 Dental Prophylaxis 02/02/2013 08/04/2012, 0 12/18/2011, 05/15/2011, Additional history exists Dental Oral Exam 02/20/2016 08/21/2015, , 09/04/2010, Additional history exists Dental X-Ray: Bitewings 08/22/2016 08/21/2015, 12/17 Dental X-Ray: Full Mouth 08/22/2018 08/21/2015 Pneumococcal Vaccine: 50+ Years (1 of 1 - PCV) 2018 COVID-19 Vaccine ( - season) 2024 07/10/2023, 08/18/2021, 12/01/2020, Additional history exists Influenza Vaccine (#1) 2024 , 04/11/2022, 05/11/2020, Additional history exists SDOH Screening 10/15/2024 10/16/2023 Alcohol/Substance Use Screening 10/26/2024 10/27/2023 Depression Screening 10/26/2024 10/27/2023, 10/27/19 Tobacco Screening 09/14/2025 09/14/2024 Colonoscopy 06/07/2028 06/07/2021 Colorectal Cancer Screening 06/07/2028 Lipid Panel 10/31/2028 11/01/2023, 10/2022, 06/23/2020 DTaP/Tdap/Td Vaccines (3 - Td or Tdap) 05/11/2030 05/11/2020, 08/03/2009 RSV Patients and Patients Aged 60 years or older (1 - 1-dose 75+ series) 11/30/2043 HIV Screening Completed 11/01/2023 Hepatitis C Screening Completed 11/01/2023 Zoster Vaccines Completed 12/16/2023, 01/2024, 08/03/2020, Additional history exists HIB Vaccines Aged Out No longer eligi ble based on patient's age to complete this topic HPV Vaccines Aged Out No longer eligi ble based on patient's age to complete this topic Hepatitis A Vaccines Aged Out No long er eligible based on patient's age to complete this topic IPV Vaccines Aged Out No longer eligi ble based on patient's age to complete this topic Meningococcal Vaccine Aged Out No bonita mendoza eligible based on patient's age to complete this topic RSV under 20 months Aged Out No longe r eligible based on patient's age to complete this topic Rotavirus Vaccines Aged Out No longer eligible based on patient's age to complete this topic Procedures Procedure Name Priority Date/Time Associated Diagnosis Comments INTRAORAL - PERIAPICAL EACH ADDITIONAL RADIOGRAPHIC IMAGE Routine 09/14/2024 11:30 AM EST INTRAORAL - PERIAPICAL EACH ADDITIONAL RADIOGRAPHIC IMAGE Routine 09/14/2024 11:30 AM EST INTRAORAL - PERIAPICAL FIRST RADIOGRAPHIC IMAGE Routine 09/14/2024 11:30 AM EST LIMITED ORAL EVALUATION - PROBLEM FOCUSED Routine 09/14/2024 11:30 AM EST 3 CROWN - PORCELAIN/CERAMIC Routine 09/14/2024 12:00 AM EST TESTOSTERONE, FREE (DIALYSIS) AND TOTAL,MS Routine 09/04/2024 7:35 AM EST PSA, TOTAL Routine 09/04/2024 7:35 AM EST CBC Routine 09/04/2024 7:35 AM EST HEPATITIS PANEL, GENERAL Routine 11/01/2023 7:40 AM EDT Visit for preventive health examination HIV 1/2 ANTIGEN/ANTIBODY, FOURTH GENERATION W/RFL Routine 11/01/2023 7:40 AM EDT Visit for preventive health examination LIPID PANEL WITH REFLEX TO DIRECT LDL Routine 11/01/2023 7:40 AM EDT Mixed hyperlipidemia HM COLONOSCOPY Routine 06/07/2021 INTRAORAL - COMPLETE SERIES OF RADIOGRAPHIC IMAGES Routine 08/21/2015 12:00 AM EST COMPREHENSIVE ORAL EVALUATION - NEW OR ESTABLISHED PATIENT Routine 08/21/2015 12:00 AM EST PROPHYLAXIS - ADULT Routine 08/04/2012 1 2:00 AM EST from Last 3 Months or Most Recently Relevant to Health Maintenance Results * CBC (09/04/2024 7:35 AM EST) White Blood Count 5.5 4.8 - 10.8 X10*3/uL [facility] Red Blood Count 5.32 4.60 - 5.80 X10*6/uL [facility] Hemoglobin 15.8 14.0 - 18.0 g/dl [facility] Hematocrit 47.6 42.0 - 52.0 % [facility] Mean Corpuscular Volume 89.5 80.0 - 98.0 fL [facility] Mean Corpuscular Hemoglobin 29.7 27.0 - 33.0 pg [facility] Mean Corpuscular HGB Conc 33.2 31.0 - 36.0 g/dl [facility] Red Cell Distribution Width 13.2 11.0 - 16.0 % [facility] Platelet Count 217 160 - 400 X10*3/uL [facility] Mean Platelet Volume 11.3 9.4 - 12.4 fL [facility] NRBC Pct Auto 0.0 0.0 - 0.2 /100WBC [facility] NRBC Abs Auto 0.000 0.0 - 0.012 X10*3/uL [facility] 09/04/2024 7:35 AM EST 09/04/2024 7:35 AM EST Generic External Data Provider LAB BLOOD ORDERAB LES Final Result Performing Organization Address [facility] Co de Phone Number [facility] [address] [place] [phone] * Testosterone, Free (Dialysis) And Total, MS (09/04/2024 7:35 AM EST) Testosterone, Total TNP ng/dL [facility] Comment:TEST NOT PERFORMED.Q uantity not sufficient.THIS TEST WAS PERFORMED AT:[id number] [place] [address]CPFDBHRSHERRI AMANDA MD,PHD Testosterone, Free TNP [facility] Comment:QNS 09/04/2024 7:35 AM EST 09/04/2024 7:35 AM EST Generic External Data Provider LAB BLOOD ORDERAB LES Final Result Performing Organization Address [facility] Phone Number [facility] [address] [place] [address] [phone] * PSA,Total (09/04/2024 7:35 AM EST) Prostate Specific Antigen 0.40 <0.05 - 4.0 ng/mL [facility] Comment:PSA methodology: Abb vicky Alinity i ChemiluminescentMicroparticle Immunoassay (CMIA) 09/04/2024 7:35 AM EST 09/04/2024 7:35 AM EST Generic External Data Provider LAB BLOOD ORDERAB LES Final Result Performing Organization Address [facility] Co de Phone Number [facility] [address] [place] [phone] * (ABNORMAL) Lipid Panel with Reflex to Direct LDL (11/01/2023 7:40 AM EDT) Triglycerides 86 <150 mg/dL [facility] Comment:Desirable Triglyceri de: less than 150 mg/dLBorderline High Triglyceride 150-199 mg/dLHigh Triglyceride: 200-499 mg/dLVery High Triglyceride: greater than or equal to 5OO mg/dL Cholesterol 122 <200 mg/dL [facility] Comment:Desirable Cholestero l: less than 200 mg/dLBorderline High Cholesterol: 200-239 mg/dLHigh Cholesterol: greater than 239 mg/dL LDL Cholesterol Calculated 70 <100 mg/dL [facility] Comment:Desirable LDL: less than 100 mg/dLNear Optimal/Above Optimal LDL: 110- 129 mg/dLBorderline High LDL: 130-159 mg/dLHigh LDL: 160-189 mg/dLVery High LDL: greater than or equal to 190 mg/dL HDL Cholesterol 35(L) >40 mg/dL [facility] Comment:Desirable HDL: great er than 40 mg/dL Note: This HDL assay may give artificially low results in patients with liver disease. Blood 11/01/2023 7:40 AM EDT 11/01/2023 7:40 AM EDT Darcy Seo MD LAB BLOOD ORDERABLES Fin al Result [facility] [address] [place] [address] [phone] * Hepatitis Panel, General (11/01/2023 7:40 AM EDT) Hepatitis A IgM Nonreactive Nonreactive [facility] Comment:IgM antibodies to CARL V not detected; does not exclude earlyacute or recovered HAV infection. ~Hepatitis B Surface Antibody REACTIVE Nonreactive [facility] Comment:REACTIVE: > 11.99 mI U/mL Hepatitis B Core Antibody Nonreactive Nonreactive [facility] Hepatitis C Antibody Nonreactive Nonreactive [facility] Comment:Antibodies to HCV no t detected; does not exclude early acuteHCV infection. Hepatitis B Surface Ag Negative Negative [facility] Blood 11/01/2023 7:40 AM EDT 11/01/2023 7:40 AM EDT Darcy Seo MD LAB BLOOD ORDERABLES Fin al Result Performing Organization Address [facility] Co de Phone Number [facility] [address] [place] [phone] * HIV-1/2 Antigen and Antibodies, Fourth Generation, with Reflexes (11/01/2023 7:40 AM EDT) HIV AB/AG Nonreactive Nonreactive [facility] Comment:HIV-1 p24 Ag and/or HIV-1/HIV-2 Ab not detected.A test result that is nonreactive does not exclude thepossibility of exposure to or infection with HIV-1 and/orHIV-2. Nonreactive results in this assay for individualswith prior exposure to HIV-1 and/or HIV-2 may be due toantigen and antibody levels that are below the limit ofdetection of this assay.The [employer] HIV Ag/Ab Combo assay result andsupplemental assay results should be interpreted inconjunction with the patient's clinical presentation,history and other laboratory results. If the results areinconsistent with clinical evidence, additional testing issuggested to confirm the result. Blood Venous blood specimen / Unknown 11/01/2023 7:40 AM EDT 11/01/2023 7:40 AM EDT Darcy Seo MD LAB BLOOD ORDERABLES Fin al Result Performing Organization Address [facility] Co de Phone Number [facility] [address] [place] [phone] * (ABNORMAL) Hm Colonoscopy (06/07/2021) Pathologist [facility] Colonoscopy Abnormal( A) Normal Comment:Repeat 7 years Historical Provider HEALTH MAINTENANCE Edited Result - Final from Last 3 Months or Most Recently Relevant to Health Maintenance Insurance [employer] PPO [facility] Care Teams Artificial Breeding Technician Relationship Specialty Start Date End Date Darcy Seo MD [address] [place] [phone] PCP - General Family Medicine 05/01/16
--- OUTSIDE RECORDS SUMMARY | 2024-09-18 07:08 | XMS_ITS | Encounter Summary ---
Author Organization [employer] Address [address] [facility] 7[address] [place] [address] Care Team Providers Care Metallurgical Or Materials Technician Name Role Phone Darcy Seo MD Primary Care Provider + Reason for Visit * Reason Onset Date Comments October08/25/2024 Encounter Details Date Type Department Care Team ([facility] Contact Info) Description 08/25/2024 Telephone [facility] [address] [place], [place] [phone] Darcy Seo MD [address] [place], [place] [phone] October recall Social History Tobacco Use Types Packs/Day Years [...] AM EDT documented as of this encounter Miscellaneous Notes * Telephone Encounter - Maia Loredo [place] - 08/25/2024 2:58 PM EST Tc to pt to schedule recall appt. Appt has been scheduled for 11/12/24 at 10:45 am. Pt also requested follow up appt. Appt scheduled for 10/12/24 at 11:45 am. documented in this encounter Plan of Treatment Upcoming Encounters Date Type Department Care Team (Late st Contact Info) Description 10/11/2024 1:30 PM EDT Office Visit [facility] ADULT [facility] [address] [place] [address] Pj Sullivan, MARIELENA [address] [place] [address] 10/22/2024 11:45 AM EDT Office Visit [facility] MED[facility] [address] [place] [address] Darcy Seo MD [address] [place] [address] 11/12/2024 10:45 AM EDT Office Visit [facility] [address] [place] [address] Darcy Seo MD [address] [place] [phone] documented as of this encounter Visit Diagnoses Not on filedocumented in this encounter Additional Health Concerns Assessment Noted Time PHQ-9 Depression Total Score: 3 10/27/19 24 2:40 PM EDT documented as of this encounter Care Teams Metallurgical Or Materials Technician Relationship Specialty Start Date End Date Darcy Seo MD [address] [place] [phone] PCP - General Family Medicine 05/01/16 documented as of this encounter
--- OUTSIDE RECORDS SUMMARY | 2024-09-18 07:08 | XMS_ITS | Encounter Summary ---
Author Organization [employer] Address [address] [facility] 7t [place] [address] Care Team Providers Care Flooring Professional Name Role Phone Darcy Seo MD Primary Care Provider + Reason for Visit * Reason Comments Dental Pain Encounter Details Date Type Department Care Team ([facility] Contact Info) Description 09/14/2024 11:30 AM EST Office Visit [facility] ADULT DENTAL [address] [place], [place] [phone] Henry Trevino, DDS [address], [place] [phone] Hypersensitivity, initial encounter (Primary Dx); Gingivitis Social History Tobacco Use Types Packs/Day Years [...] the past 12 months, has t he [employer] oil or water [employer] threatened to shut off services in your home? No 05/21/2023 Depression Answer Date Recorded Patient Health Questionnaire-2 Score 0 10/27/2023 Sex and Gender Information Value Date Recorded Sex Assigned at Male 05/27/2022 10:20 AM EDT Legal Sex Male 10:20 AM EDT Gender Identity Male 05/27/2022 10:20 AM EDT Sexual Orientation Straight 05/27/2022 10 :20 AM EDT documented as of this encounter Last Filed Vital Signs Vital Sign Reading Time Taken Comments Blood Pressure 160/100 09/14/2024 11:37 AM EST Pulse - - Temperature - - Respiratory Rate - - Oxygen Saturation - - Inhaled Oxygen Concentration - - Weight - - Height - - Body Mass Index - - documented in this encounter Progress Notes * Henry Trevino DDS - 09/14/2024 11:30 AM EST Dental procedures in this visit [id number] - LIMITED ORAL EVALUATION - PROBLEM FOCUSED Patient ID: Yuri Acuña is a 53 y.o. male. Time Out: Timeout Date: 09/14/24, Timeout Time: 1126 (Dental Emergency) Location: [facility] Tooth: Maxilla, #3, and #16 Procedure: X-rays and Emergency Verified the above with patient, legal support assistant, and provider. Confirmed via patient's chart, intraorally and by radiographs. Auditing Specialist: not applicable Chief Complaint Patient presents with Dental Pain Medical Hx: Vitals: Blood pressure (!) 160/100. Past Medical History: Diagnosis Date Arthritis Hypertension Medications: Outpatient Encounter Medications as of 09/14/2024 Medication Sig Dispense Refill Aspirin Low Dose 81 MG EC tablet TAKE 1 TABLET(81 MG) BY MOUTH IN THE MORNING 90 tablet 3 atorvastatin (Lipitor) 20 MG tablet Take 1 tablet (20 mg) by mouth Once per day. 90 tablet 3 lisinopril 5 MG tablet Take 1 tablet (5 mg) by mouth Once per day. 90 tablet 3 Calcium Carbonate-Vit D-Min (Caltrate 600+D Plus Minerals) 600-800 MG-UNIT tablet 1 tab po/d (Patient not taking: Reported on 09/14/2024) 90 tablet 3 cholecalciferol (Vitamin D-3) 1.25 MG (53044 UT) capsule (Patient not taking: Reported on 09/14/2024) gabapentin (Neurontin) 100 MG capsule TAKE 3 CAPSULES(300 MG) BY MOUTH TWICE DAILY (Patient not taking: Reported on 09/14/2024) 60 capsule 0 ketotifen (Zaditor) 0.025 % ophthalmic solution Administer 1 drop into both eyes 2 times daily. (Patient not taking: Reported on 09/14/2024) 10 mL 0 oxybutynin (Ditropan) 5 MG tablet Take 5 mg by mouth Once per day. (Patient not taking: Reported on09/14/2024) senna-docusate sodium (Senokot-S) 8.6-50 MG tablet Take 1 tablet by mouth Once per day. (Patient not taking: Reported on 09/14/2024) 30 tablet 3 tadalafil (Cialis) 5 MG tablet Take 5 mg by mouth Once per day. (Patient not taking: Reported on 09/14/2024) testosterone cypionate (Depo-Testosterone) 100 MG/ML injection Inject 0.5 mL into the shoulder, thigh, or buttocks every 4 (four) weeks. (Patient not taking: Reported on 09/14/2024) No facility-administered encounter medications on file as of 09/14/2024. Subjective: Pain: intermittent excerebration with temp changes Duration: > 5 days Objective: Tooth: #3 and #13 Radiographs Taken: FMX Radiographic Findings: Bone loss, calculus Clinical Findings: Missing teeth acquired, restorations, Swelling: Tenderness Endo Testing: N/A Perio: Erythematous max. # 3, 14 - 16 regions Other Findings: YADIRA pending Diagnosis: Gingivitis, hypersensitivity # 3 , pericoronitis # 16 Assessment/Plan: EOE X Rays YADIRA / crown and miya evaluations Prescriptions: Sent to [facility] on file Pt tolerated procedure well, all questions answered. Dismissed in good condition. NV: YADIRA / [place] evaluation with Dr. Finnegan or Dr. Sullivan Body Man: Iman Kamara Dentist: Henry Trevino DDS documented in this encounter Plan of Treatment Upcoming Encounters Date Type Department Care Team (Late st Contact Info) Description 10/11/2024 1:30 PM EDT Office Visit [facility] ADULT DENTAL [address] [place] [address] Pj Sullivan, MARIELENA [address] [place] [address] 10/22/2024 11:45 AM EDT Office Visit [facility] MEDICINE [address] [place] [address] Darcy Seo MD [address] [place] [address] 11/12/2024 10:45 AM EDT Office Visit [facility] MED[facility]INE [address] [place] [address] Darcy Seo MD [address] [place] [address] Scheduled Orders Name Type Priority Associated Diagnoses Orde r Schedule COMPREHENSIVE ORAL EVALUATION - NEW OR ESTABLISHED PATIENT Dental Routine 1 Occurrence s starting 09/14/2024 documented as of this encounter Procedures Procedure Name Priority Date/Time Associated Diagnosis Comments LIMITED ORAL EVALUATION - PROBLEM FOCUSED Routine 09/14/2024 11:30 AM EST INTRAORAL - PERIAPICAL FIRST RADIOGRAPHIC IMAGE Routine 09/14/2024 11:30 AM EST INTRAORAL - PERIAPICAL EACH ADDITIONAL RADIOGRAPHIC IMAGE Routine 09/14/2024 11:30 AM EST INTRAORAL - PERIAPICAL EACH ADDITIONAL RADIOGRAPHIC IMAGE Routine 09/14/2024 11:30 AM EST 3 CROWN - PORCELAIN/CERAMIC Routine 09/14/2024 12:00 AM EST documented in this encounter Visit Diagnoses Diagnosis Hypersensitivity, initial encounter- Primary Gingivitis Chronic gingivitis, plaque induced documented in this encounter Additional Health Concerns Assessment Noted Time PHQ-9 Depression Total Score: 3 10/27/19 24 2:40 PM EDT documented as of this encounter Care Teams Flooring Professional Relationship Specialty Start Date End Date Darcy Seo MD [address] [place] [address] PCP - General Family Medicine 05/01/16 documented as of this encounter
--- OUTSIDE RECORDS SUMMARY | 2024-09-18 07:08 | XMS_ITS | Encounter Summary ---
Author Organization [employer] Address [address] [facility] 7t [place] [address] Care Team Providers Care Laundry Worker Name Role Phone Darcy Seo MD Primary Care Provider + Encounter Details Date Type Department Care Team (Late Contact Info) Description 01/10/2023 Abstract [facility] MEDICINE [address] [place] [address] [phone] Darcy Seo MD [address] [place] [address] Social History Tobacco Use Types Packs/Day Years [...] suspected to have Coronavirus/COVID-19? No / Unsure 12/26/2022 12:59 PM EDT documented as of this encounter Plan of Treatment Upcoming Encounters Date Type Department Care Team (Late Contact Info) Description 10/11/2024 1:30 PM EDT Office Visit [facility] ADULT DENTAL [address] [place] [address] Pj Sullivan, DMD [address] [place] [address] 10/22/2024 11:45 AM EDT Office Visit [facility] MEDICINE [address] [place] [phone] Darcy Seo MD [address] [place] [address] 11/12/2024 10:45 AM EDT Office Visit [facility] MED[facility] [address] [place] [address] Darcy Seo MD [address] [place] [address] documented as of this encounter Visit Diagnoses Not on filedocumented in this encounter Additional Health Concerns Assessment Noted Time PHQ-9 Depression Total Score: 0 10/29/19 23 9:42 AM EDT documented as of this encounter Care Teams Laundry Worker Relationship Specialty Start Date End Date Darcy Seo MD [address] [place] [address] [phone] PCP - General Family Medicine 05/01/16 documented as of this encounter
--- OUTSIDE RECORDS SUMMARY | 2024-09-18 07:08 | XMS_ITS | Encounter Summary ---
Author Organization [employer] Address [address] [facility] 7[address] [place] [address] Care Team Providers Care Dual Hose Cementer Name Role Phone Darcy Seo MD Primary Care Provider + Reason for Visit * Reason Comments Med Refill Encounter Details Date Type Department Care Team ([facility] Contact Info) Description 08/08/2024 Refill [facility] MED[facility] [address] [place], [place] [phone] Jodie Mazariegos MD [address] [place], [place] [phone] Mixed hyperlipidemia Social History Tobacco Use Types [...] 10/11/2024 1:30 PM EDT Office Visit [facility] ADULT DENTAL [address] [place] [phone] Pj Sullivan, DMD [address] [place] [address] 10/22/2024 11:45 AM EDT Office Visit [facility] MED[facility]INE [address] [place] [phone] Darcy Seo MD [address] [place] [address] 11/12/2024 10:45 AM EDT Office Visit [facility] MED[facility] [address] [place] [address] Darcy Seo MD [address] [place] [phone] documented as of this encounter Visit Diagnoses Diagnosis Mixed hyperlipidemia documented in this encounter Additional Health Concerns Assessment Noted Time PHQ-9 Depression Total Score: 3 10/27/19 24 2:40 PM EDT documented as of this encounter Care Teams Dual Hose Cementer Relationship Specialty Start Date End Date Darcy Seo MD [address] [place] [phone] PCP - General Family Medicine 05/01/16 documented as of this encounter
[2024-09-18 08:07] LABS: Hematocrit 46.3 % (42.0-52.0); Hemoglobin 15.4 g/dl (14.0-18.0); Mean Corpuscular HGB Conc 33.3 g/dl (31.0-36.0); Mean Corpuscular Hemoglobin 29.6 pg (27.0-33.0); Mean Platelet Volume 10.8 fL (9.4-12.4); Platelet Count 235 X10*3/uL (160-400); Red Cell Distribution Width 12.9 % (11.0-16.0); White Blood Count 6.2 X10*3/uL (4.8-10.8)
[2024-09-18 09:22] LABS: Prostate Specific Antigen 0.38 ng/mL (<0.05-4.0)
[2024-09-25 11:47] LABS: Testosterone, Free 28.7 pg/mL (35.0-155.0); Testosterone, Total 148 ng/dL (250-1100)
== END 2024-09-18 07:06 | disposition home or self-care (01) ==
LOC: HO.LAB 07:05
PROVIDERS: PCP Internal Medicine; Visit Provider Nurse Practitioner Family
DX: N40.1 Benign prostatic hyperplasia with lower urinary tract symptoms (principal); E29.1 Testicular hypofunction; Z12.5 Encounter for screening for malignant neoplasm of prostate
CPT/HCPCS: 36415; 84153; 84402; 84403; 85027

== ENCOUNTER 2024-10-05 11:07 | Outpatient (AMB) | payer BC, SELFPAY ==
--- NOTE | 2024-10-05 11:08 | A.OFFVIS_ITS ---
Intake Visit Reasons: med Review Intake Note: Patient presents today via telehealth-call for med review Urology Medication:Tadalafil Antibiotic Allergy:PENICILLINS Blood Thinner:none Critical Care Unit Manager Required: Yes Critical Care Unit Manager Services: Critical Care Unit Manager Present Critical Care Unit Manager Name: HEBER DELGADILLOChaseParas Accompanied by: Self / Same As Patient Allergies cortisone [CORTISONE] Allergy (Unknown, Verified 10/05/24 13:23) TACHYCARDIA Penicillins [PCN] Allergy (Unknown, Verified 10/05/24 13:23) HIVES Medication List - Last Reconciled 10/05/24 by TAMRA Booth- aspirin 81 mg PO DAILY atorvastatin 20 mg PO DAILY lisinopril 5 mg PO DAILY tadalafil 20 mg PO .PRN 90 days tadalafil (Cialis) 5 mg PO DAILY 90 days testosterone 4 pumps topical DAILY 30 days HPI Comments Details: Yuri is a 53-year-old Serbian-speaking male patient of Dr. Seo. He has a past medical history of hypertension, hyperlipidemia, and hypogonadism. He is being followed up on today via video telehealth for his lower urinary tract symptoms and hypogonadism. Of note, patient was last seen 06/20 at which time he was started on Zyosted for his longstanding history of hypogonadism. Patient reports he initially started Zyosted late last year in May as well as June however given renewal of insurance as well as deductible the beginning of the year he was unable to afford Zyosted in his enquiring going back to testosterone gel replacement. Recent hypogonadism labs reviewed with the patient today: PSA: 09/20 0.3, 09/21 0.4 Testosterone: 11/13 66, 07/19 213, 03/20 213, 09/21 148 Free testosterone: 03/20 43.5, 09/21 28.7 Hemoglobin/hematocrit: 09/20 137.7/41.6, 09/21 15.4/46.3 He continues to report fatigue, low libido, and issues maintaining his erections. He also continues to report ongoing lower urinary tract symptoms of urinary frequency and nocturia. Previous workup has included a retroperitoneal ultrasound 11/18 noting bilateral kidneys with no calculi, lesions, and or hydronephrosis. The bladder is well distended and normal. Bladder jets are demonstrated. Pre void bladder volume is approximately 180 mL. Postvoid bladder volume is approximately 30 mL. Enlarged prostate of approximately 35 mL. He has a longstanding history of testosterone replacement and has previously followed up with [facility]. He has trialed injectable IM testosterone however did not wish to continue therefore was switched to topical gels. He is enquiring going back to gel as Zyosted with insurance coverage continues to have increased co-pay. He is requesting refill on tadalafil as well as oxybutynin. He otherwise denies incontinence, hematuria, dysuria, foul smelling urine, changes to urinary stream, flank pain, fever, and or chills. We discussed at length further treatment options of hypogonadism as well as potential causes of hypogonadism. He otherwise offers no other issues or concerns at this time. [facility] Surgical History Hx of knee surgery History of cholecystectomy Family History Father Heart attack No family history of cancer Mother No problems noted. Social History Alcohol intake: current Alcohol intake frequency: holidays/special occasions only Patient Tobacco Use Status: Never used Tobacco Review of Systems Const All systems reviewed & are unremarkable except as noted in HPI and below Physical Exam Const General: cooperative, healthy appearing, comfortable, no acute distress, well developed, alert and awake Orientation/consciousness: patient oriented x3 Resp Effort & Inspection: normal respiratory effort and able to speak in complete sentences Neuro General: patient oriented x3 Psych Appearance: grossly normal and well kempt Mental Status: mental status grossly normal Speech and movement: Clear speech present Affect: normal affect Attitude: cooperative Thought process: Normal thought process present Thought content: Normal thought content present Insight: Fair insight present (Psych) Judgement: Fair judgement present (Psych) Telehealth Telehealth Telehealth Platform: Telephone Location of provider rendering services: practice address Location of patient: address on file Patient Identification confirmed using: Name, : Yes Telehealth method: video Patient verbally consented to treatment: Yes Patient verbally consented to billing insurance company: Yes Patient informed of any privacy concerns related to visit: Yes Minutes spent on Phone/Video with Pt.: 25 Assessment & Plan Assessment & Plan (1) Erectile dysfunction: Code(s): N52.9 - Male erectile dysfunction, unspecified Category: Medical (2) Hypogonadism in male: Code(s): E29.1 - Testicular hypofunction Category: Medical (3) OAB (overactive bladder): Code(s): N32.81 - Overactive bladder Category: Medical (4) BPH loc w urin obs/LUTS: Code(s): N40.1 - Benign prostatic hyperplasia with lower urinary tract symptoms Category: Medical Plan Recent hypogonadism labs reviewed with the patient today; as noted above. Will restart testosterone gel; script provided. Refill provided on daily dosing of tadalafil as well as p.r.n. dosing Refill provided on oxybutynin. We discussed at length potential causes of hypogonadism as well as further treatment options and risks and benefits of these treatment options. All questions were answered. We discussed as well lifestyle modifications to assist with lower urinary tract symptoms, hypogonadism, and erectile dysfunction. Will obtain PSA, testosterone, and CBC prior to next follow-up. We discussed bladder triggers/irritants. We discussed importance of compliance with CPAP for improvement overall health and well-being. Keep scheduled follow-up for November as discussed; educated to call office with any questions, concerns, and or issues. Orders: Orders PSA,Total (Free>4and<10) 2 Months E29.1 - Testicular hypofunction, N52.9 - Male erectile dysfunction, unspecified Testosterone, Free/Total 2 Months E29.1 - Testicular hypofunction, N52.9 - Male erectile dysfunction, unspecified Complete Blood Count no Diff 2 Months E29.1 - Testicular hypofunction Medications: New testosterone apply 2 pumps over max area of EACH upper arm and shoulder 4 pumps topical DAILY 30 days 2 grams 5RF E29.1 - Testicular hypofunction Changed From oxybutynin chloride ER 5 mg PO DAILY 30 tabs 3RF for frequent urination To oxybutynin chloride ER 5 mg PO DAILY 90 days 90 tabs 0RF for frequent urination Refilled tadalafil (Cialis) [id number] [id number] Member [id number] 5 mg PO DAILY 90 days 90 tabs 3RF Discontinued testosterone enanthate (Xyosted) Discontinued Reason: Patient no longer taking 75 mg (0.5 mL) subcut QWEEK 30 days 2.5 mL 3RF Patient Instructions: The patient had an opportunity to ask questions regarding the treatment plan. All questions were answered. Physical exam, labs, and imaging were discussed and reviewed in detail. As well as risks, benefits, and discussion of treatment choices. No major barriers to understanding were identified. The patient expressed understanding and agreement with the above treatment plan. The patient was made aware they should contact our office by phone for worsening of their current condition, the appearance of new symptoms, or with any questions or concerns. Compliance is encouraged with any medications and follow up testing that is ordered. It is a privilege to be allowed the opportunity to participate in? your urological care.? Again, if you have any questions or concerns If you have any questions or concerns please do not hesitate to contact me. The office is [phone]. This note is constructed using voice recognition software. While every effort has been made to ensure accuracy booster pump operator errors may have been included. Yours sincerely, CAITLIN Booth Coding Level of Care Code Tele Est Pt Level 4 (93605) Diagnoses Erectile dysfunction N52.9 Hypogonadism in male E29.1 OAB (overactive bladder) N32.81 BPH loc w urin obs/LUTS N40.1
--- OUTSIDE RECORDS SUMMARY | 2024-10-05 13:43 | XMS_ITS | Encounter Summary ---
Author Organization [employer] Address [address] [facility] 7t [place] [address] Care Team Providers Care Crawler Dragline Operator Name Role Phone Darcy Seo MD Primary Care Provider + Encounter Details Date Type Department Care Team (Late Contact Info) Description 01/10/2023 Abstract [facility] MED[facility]INE [address] [place] [address] [phone] Darcy Seo MD [address] [place] [address] Social History Tobacco Use Types Packs/Day Years [...] Description 10/11/2024 1:30 PM EDT Office Visit [facility] ADULT DENTAL [address] [place] [address] Pj Sullivan, DMD [address] [place] [address] 10/22/2024 11:45 AM EDT Office Visit [facility] [address] [place] [phone] Darcy Seo MD [address] [place] [address] 11/12/2024 10:45 AM EDT Office Visit [facility] [address] [place] [address] Darcy Seo MD [address] [place] [address] documented as of this encounter Visit Diagnoses Not on filedocumented in this encounter Additional Health Concerns Assessment Noted Time PHQ-9 Depression Total Score: 0 10/29/19 23 9:42 AM EDT documented as of this encounter Care Teams Crawler Dragline Operator Relationship Specialty Start Date End Date Darcy Seo MD [address] [place] [address] [phone] PCP - General Family Medicine 05/01/16 documented as of this encounter
--- OUTSIDE RECORDS SUMMARY | 2024-10-05 13:43 | XMS_ITS | Encounter Summary ---
Author Organization [employer] Address [address] [facility] 7t [place] [address] Care Team Providers Care Head Bucker Name Role Phone Darcy Seo MD Primary Care Provider + Encounter Details Date Type Department Care Team ([facility] Contact Info) Description 09/18/2024 Orders Only GENERIC EXTERNAL DATA DEPARTMENT Provider, [...] as of this encounter Miscellaneous Notes * Result Encounter Note - Darcy Seo MD - 09/18/2024 9:02 AM EST Labs on 09/18/2024 ordered by outside provider, showed low testosterone. Patient has known hypogonadism and is followed by [facility], he's supposed to be on testosterone supplementation. I will follow-up with him on upcoming appointment at the end of this month. documented in this encounter Plan of Treatment Upcoming Encounters Date Type Department Care Team (Late st Contact Info) Description 10/11/2024 1:30 PM EDT Office Visit [facility] ADULT DENTAL [address] [place] [address] Pj Sullivan, DMD [address] [place] [address] 10/22/2024 11:45 AM EDT Office Visit [facility] MEDICINE [address] [place] [phone] Darcy Seo MD [address] [place] [address] 11/12/2024 10:45 AM EDT Office Visit [address] [address] Darcy Seo MD [address] [place] [phone] documented as of this encounter Procedures Procedure Name Priority Date/Time Associated Diagnosis Comments CBC Routine 09/18/2024 7:24 AM EST TESTOSTERONE, FREE (DIALYSIS) AND TOTAL,MS Routine 09/18/2024 7:24 AM EST PSA, TOTAL Routine 09/18/2024 7:24 AM EST documented in this encounter Results * (ABNORMAL) Testosterone, Free (Dialysis) And Total, MS (09/18/2024 7:24 AM EST) Testosterone, Total 148(A) 250 - 1100 ng/dL [facility] Comment:For additional infor reji, please refer tohttp://education.Surfingbird/faq/[email or web address](This link is being provided for informational/educational purposes only.)This test was developed and its analytical performancecharacteristics have been determined by [employer], [place]. It hasnot been cleared or approved by the U.S. Food and DrugAdministration. This assay has been validated pursuantto the CLIA regulations and is used for clinicalpurposes. Testosterone, Free 28.7(A) 35.0 - 155.0 pg/mL [facility] Comment:This test was develo ped and its analytical performancecharacteristics have been determined by [employer] [place], [place]. It hasnot been cleared or approved by the U.S. Food and DrugAdministration. This assay has been validated pursuantto the CLIA regulations and is used for clinicalpurposes.THIS TEST WAS PERFORMED AT:[employer] [id number] [place] [address]KSCYXNCSHERRI AMANDA MD,PHD 09/18/2024 7:24 AM EST 09/18/2024 7:24 AM EST us Generic External Data Provider LAB BLOOD ORDERAB LES Final Result Performing Organization Address [facility] Co de Phone Number [facility] [address] [place] [address] [phone] * PSA,Total (09/18/2024 7:24 AM EST) Pathologist [facility] Prostate Specific Antigen 0.38 <0.05 - 4.0 ng/mL [facility] Comment:PSA methodology: Chelsea Arita i ChemiluminescentMicroparticle Immunoassay (CMIA) 09/18/2024 7:24 AM EST 09/18/2024 7:24 AM EST Generic External Data Provider LAB BLOOD ORDERAB LES Final Result Performing Organization Address [facility] Co de Phone Number [facility] [address] [place] [phone] * CBC (09/18/2024 7:24 AM EST) Pathologist [facility] White Blood Count 6.2 4.8 - 10.8 X10*3/uL [facility] Red Blood Count 5.20 4.60 - 5.80 X10*6/uL [facility] Hemoglobin 15.4 14.0 - 18.0 g/dl [facility] Hematocrit 46.3 42.0 - 52.0 % [facility] Mean Corpuscular Volume 89.0 80.0 - 98.0 fL [facility] Mean Corpuscular Hemoglobin 29.6 27.0 - 33.0 pg [facility] Mean Corpuscular HGB Conc 33.3 31.0 - 36.0 g/dl [facility] Red Cell Distribution Width 12.9 11.0 - 16.0 % [facility] Platelet Count 235 160 - 400 X10*3/uL [facility] Mean Platelet Volume 10.8 9.4 - 12.4 fL [facility] NRBC Pct Auto 0.0 0.0 - 0.2 /100WBC [facility] NRBC Abs Auto 0.000 0.0 - 0.012 X10*3/uL [facility] 09/18/2024 7:24 AM EST 09/18/2024 7:24 AM EST us Generic External Data Provider LAB BLOOD ORDERAB LES Final Result [facility] [address] [place] [address] [phone] documented in this encounter Visit Diagnoses Not on filedocumented in this encounter Additional Health Concerns Assessment Noted Time PHQ-9 Depression Total Score: 3 10/27/19 24 2:40 PM EDT documented as of this encounter Care Teams Head Bucker Relationship Specialty Start Date End Date Darcy Seo MD [address] [place] [address] PCP - General Family Medicine 05/01/16 documented as of this encounter
--- OUTSIDE RECORDS SUMMARY | 2024-10-05 13:43 | XMS_ITS | Encounter Summary ---
Author Organization [employer] Address [address] [facility] 7t [place] [address] Care Team Providers Care Tractor Operator Laser Leveling Name Role Phone Darcy Seo MD Primary Care Provider + Encounter Details Date Type Department Care Team (Late st Contact Info) Description 10/14/2022 Orders Only [facility] CHC MED & PEDS [address] [place], [place] [phone] Katarina Good LPN Social History Tobacco Use [...] Description 10/11/2024 1:30 PM EDT Office Visit [facility] ADULT DENTAL [address] [place] [address] Pj Sullivan, MARIELENA [address] [place] [address] 10/22/2024 11:45 AM EDT Office Visit [facility] MEDICINE [address] [place] [address] Darcy Seo MD 230 [place] [address] 11/12/2024 10:45 AM EDT Office Visit [facility] MEDICINE [address] [place] [address] Darcy Seo MD 230 [place] [address] documented as of this encounter Visit Diagnoses Not on filedocumented in this encounter Care Teams Tractor Operator Laser Leveling Relationship Specialty Start Date End Date Darcy Seo MD 230 [place] [address] PCP - General Family Medicine 05/01/16 documented as of this encounter
--- OUTSIDE RECORDS SUMMARY | 2024-10-05 13:43 | XMS_ITS | Encounter Summary ---
Author Organization [employer] Address 75 [facility] 7t [place] [address] Care Team Providers Care Transmission Technician Name Role Phone Darcy Seo MD Primary Care Provider + Encounter Details Date Type Department Care Team (Latest Contact Info) Description 10/04/2024 Travel Social History Tobacco Use Types Packs/Day Years [...] 10/11/2024 1:30 PM EDT Office Visit [facility] ADULT DENTAL [address] [place] [address] Pj Sullivan, DMD 230 [place] [address] 10/22/2024 11:45 AM EDT Office Visit [facility] MEDICINE [address] [place] [address] Darcy Seo MD [address] [place] [address] 11/12/2024 10:45 AM EDT Office Visit [facility] MEDICINE [address] [place] [address] Darcy Seo MD [address] [place] [address] documented as of this encounter Visit Diagnoses Not on filedocumented in this encounter Additional Health Concerns Assessment Noted Time PHQ-9 Depression Total Score: 3 10/27/19 24 2:40 PM EDT documented as of this encounter Care Teams Transmission Technician Relationship Specialty Start Date End Date Darcy Seo MD [address] [place] [phone] PCP - General Family Medicine 05/01/16 documented as of this encounter
--- OUTSIDE RECORDS SUMMARY | 2024-10-05 13:43 | XMS_ITS | Encounter Summary ---
Author Organization [employer] Address 75 [facility] 7t [place] [address] Care Team Providers Care Vinyl Dipper Name Role Phone Dracy Seo MD Primary Care Provider + Reason for Visit * Reason Onset Date Comments Med Refill 06/14/2023 Encounter Details Date Type Department Care Team ([facility] st Contact Info) Description 06/14/2023 Refill [facility] MEDICINE [address] [place], [place] [phone] Darcy Seo MD 230 [place], [place] [phone] Mixed hyperlipidemia Social History Tobacco Use Types [...] Description 10/11/2024 1:30 PM EDT Office Visit [facility] ADULT DENTAL [address] [place] [address] Pj Sullivan, DMD 230 [place] [address] 10/22/2024 11:45 AM EDT Office Visit [facility] MEDICINE [address] [place] [address] Darcy Seo MD [address] [place] [address] 11/12/2024 10:45 AM EDT Office Visit [facility] MEDICINE [address] [place] [address] Darcy Seo MD [address] [place] [address] documented as of this encounter Visit Diagnoses Diagnosis Mixed hyperlipidemia documented in this encounter Additional Health Concerns Assessment Noted Time PHQ-9 Depression Total Score: 0 10/29/19 23 9:42 AM EDT documented as of this encounter Care Teams Vinyl Dipper Relationship Specialty Start Date End Date Darcy Seo MD [address] [place] [address] PCP - General Family Medicine 05/01/16 documented as of this encounter
--- OUTSIDE RECORDS SUMMARY | 2024-10-05 13:43 | XMS_ITS | Encounter Summary ---
Author Organization [employer] Address 75 [facility] 7t [place] [address] Care Team Providers Care Gas Appliance Servicer Name Role Phone Darcy Seo MD Primary Care Provider + Encounter Details Date Type Department Care Team ([facility] st Contact Info) Description 07/22/2023 Orders Only [facility] MEDICINE [address] [place], [place] [phone] Kelsi Roche MD [address] [place], [place] [phone] Primary male hypogonadism (Primary Dx); Low testosterone [...] Description 10/11/2024 1:30 PM EDT Office Visit [facility] ADULT DENTAL [address] [place] [address] Pj Sullivan, MARIELENA [address] [place] [address] 10/22/2024 11:45 AM EDT Office Visit [facility] MEDICINE [address] [place] [address] Darcy Seo MD [address] [place] [address] 11/12/2024 10:45 AM EDT Office Visit [address] [address] Darcy Seo MD [address] [place] [address] documented as of this encounter Visit Diagnoses Diagnosis Primary male hypogonadism- Primary Other testicular hypofunction Low testosterone documented in this encounter Additional Health Concerns Assessment Noted Time PHQ-9 Depression Total Score: 0 10/29/19 23 9:42 AM EDT documented as of this encounter Care Teams Gas Appliance Servicer Relationship Specialty Start Date End Date Darcy Seo MD [address] [place] [phone] PCP - General Family Medicine 05/01/16 documented as of this encounter
--- OUTSIDE RECORDS SUMMARY | 2024-10-05 13:43 | XMS_ITS | Clinical Summary ---
Author Organization [employer] Address 75 [facility] 7t [place] [address] Care Team Providers Care Museum Guide Name Role Phone Darcy Seo MD Primary Care Provider + Allergies Active Allergy Reactions Criticality Noted Date Comments Cortisone 12/25/2016 Hydrocortisone Shortness of breath High 09/12/2021 Penicillin V 09/28/2010 Other reaction(s): unspecified Penicillins Hives,Rash Low 09/28/2010 Other reaction(s): unspecified Medications cholecalciferol (Vitamin D-3) 1.25 MG (44028 UT) capsule 07/30/19 23 Active ketotifen (Zaditor) [...] and monitor BP at home. FU with chargeback specialist to adjsut meds if needed or [...] to get in touch with the next animal stunner (?cousleing? Neuropsych? Psychologist?). 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 to [...] Encounters Date Type Department Care Team Description 10/04/2024 Travel 09/18/2024 Orders Only [facility] EXTERNAL DATA DEPARTMENT Provider, Generic External Data 09/14/2024 11:30 AM EST Office Visit [facility] ADULT DENTAL [address] [place] [address] Henry Trevino DDS Hypersensitivity, initial encounter (Primary Dx); Gingivitis 09/04/2024 Orders Only GENERIC EXTERNAL DATA DEPARTMENT Provider, Generic External Data 08/25/2024 Telephone [facility] MEDICINE [address] [place] [address] Darcy Seo MD October08/08/2024 Refill [facility] [address] [place] [address] Jodie Mazariegos MD Mixed hyperlipidemia from Last [...] 10/11/2024 1:30 PM EDT Office Visit [facility] ADULT DENTAL [address] [place] [address] Laurie Pj, DMD 230 [place] [address] 10/22/2024 11:45 AM EDT Office Visit [facility] MEDICINE 230 [place] [address] Darcy Seo MD 230 [place] [address] 11/12/2024 10:45 AM EDT Office Visit [facility] MED[facility] 230 [place] [address] Darcy Seo MD [address] [place] [address] Health Maintenance Due Date Last Done Comments [...] 1 - PCV) 2018 COVID-19 Vaccine ( season) 2024 07/10/2023, 08/18/2021, 12/01/2020, Additional history exists Influenza Vaccine (#1) 2024 , 04/11/2022, 05/11/2020, Additional history exists SDOH Screening 10/15/2024 10/16/2023 Alcohol/Substance Use Screening 10/26/2024 10/27/2023 Depression Screening 10/26/2024 10/27/2023, 10/27/19 Tobacco Screening 09/14/2025 09/14/2024 Colonoscopy 06/07/2028 06/07/2021 Colorectal Cancer Screening 06/07/2028 Lipid Panel 10/31/2028 11/01/2023, 0410/2022, 06/23/2020 DTaP/Tdap/Td Vaccines (3 - Td or [...] Procedure Name Priority Date/Time Associated Diagnosis Comments TESTOSTERONE, FREE (DIALYSIS) AND TOTAL,MS Routine 09/18/2024 7:24 AM EST PSA, TOTAL Routine 09/18/2024 7:24 AM EST CBC Routine 09/18/2024 7:24 AM EST INTRAORAL - PERIAPICAL EACH ADDITIONAL [...] Relevant to Health Maintenance Results * CBC (09/18/2024 7:24 AM EST) Only the most recent of2 resultswithin the time period is included. White Blood Count 6.2 4.8 - 10.8 X10*3/uL [facility] Red Blood Count 5.20 4.60 - 5.80 X10*6/uL [facility] Hemoglobin 15.4 14.0 - 18.0 g/dl [facility] Hematocrit 46.3 42.0 - 52.0 % [facility] Mean Corpuscular Volume 89.0 80.0 - 98.0 fL [facility] Mean Corpuscular Hemoglobin 29.6 27.0 - 33.0 pg [facility] Mean Corpuscular HGB Conc 33.3 31.0 - 36.0 g/dl [facility] Red Cell Distribution Width 12.9 11.0 - 16.0 % [facility] Platelet Count 235 160 - 400 X10*3/uL [facility] Mean Platelet Volume 10.8 9.4 - 12.4 fL [facility] NRBC Pct Auto 0.0 0.0 - 0.2 /100WBC [facility] NRBC Abs Auto 0.000 0.0 - 0.012 X10*3/uL [facility] 09/18/2024 7:24 AM EST 09/18/2024 7:24 AM EST us Generic External Data Provider LAB BLOOD ORDERAB LES Final Result [facility] [address] [place] [address] [phone] * (ABNORMAL) Testosterone, Free (Dialysis) And Total, MS (09/18/2024 7:24 AM EST) Only the most recent of2 resultswithin the time period is included. Testosterone, Total 148(A) 250 - 1100 ng/dL [facility] Comment:For additional infor reji, please refer [email or web address].[employer]/faq/[email or web address](This link is being provided for informational/educational purposes only.)This test was developed and its analytical performancecharacteristics have been determined by [employer] [place], [place]. It hasnot been cleared or approved by the U.S. Food and DrugAdministration. This assay has been validated pursuantto the CLIA regulations and is used for clinicalpurposes. Testosterone, Free 28.7(A) 35.0 - 155.0 pg/mL [facility] Comment:This test was develo ped and its analytical performancecharacteristics have been determined by [employer] [place], [place]. It hasnot been cleared or approved by the U.S. Food and DrugAdministration. This assay has been validated pursuantto the CLIA regulations and is used for clinicalpurposes.THIS TEST WAS PERFORMED AT:[employer] [id number] [place] [id number] AMANDA MD,PHD 09/18/2024 7:24 AM EST 09/18/2024 7:24 AM EST us Generic External Data Provider LAB BLOOD ORDERAB LES Final Result Performing Organization Address City/[facility]/ZIP Co de Phone Number [facility] [address] [place] [phone] * PSA,Total (09/18/2024 7:24 AM EST) Only the most recent of2 resultswithin the time period is included. Prostate Specific Antigen 0.38 <0.05 - 4.0 ng/mL [facility] Comment:PSA methodology: Abb vicky Arita i ChemiluminescentMicroparticle Immunoassay (CMIA) 09/18/2024 7:24 AM EST 09/18/2024 7:24 AM EST Generic External Data Provider LAB BLOOD ORDERAB LES Final Result Performing Organization Address City/[facility] Co de Phone Number [facility] [address] [place] [phone] * (ABNORMAL) Lipid Panel with Reflex to Direct LDL (11/01/2023 7:40 AM EDT) Triglycerides 86 <150 mg/dL [facility] Comment:Desirable Triglyceri de: less than 150 mg/dLBorderline High Triglyceride 150-199 mg/dLHigh Triglyceride: 200-499 mg/dLVery High Triglyceride: greater than or equal to 5OO mg/dL Cholesterol 122 <200 mg/dL [facility] Comment:Desirable Cholestero l: less than 200 mg/dLBorderline High Cholesterol: 200-239 mg/dLHigh Cholesterol: greater than 239 mg/dL LDL Cholesterol Calculated 70 <100 mg/dL [facility] Comment:Desirable LDL: less than 100 mg/dLNear Optimal/Above Optimal LDL: 110- 129 mg/dLBorderline High LDL: 130-159 mg/dLHigh LDL: 160-189 mg/dLVery High LDL: greater than or equal to 190 mg/dL HDL Cholesterol 35(L) >40 mg/dL [facility] Comment:Desirable HDL: great er than 40 mg/dL Note: This HDL assay may give artificially low results in patients with liver disease. Blood 11/01/2023 7:40 AM EDT 11/01/2023 7:40 AM EDT Darcy Seo MD LAB BLOOD ORDERABLES Fin al Result Performing Organization Address [facility] Co de Phone Number [facility] [address] [place] [phone] Hepatitis Panel, General (11/01/2023 7:40 AM EDT) Hepatitis A IgM Nonreactive Nonreactive [facility] Comment:IgM antibodies to CARL V not detected; does not exclude earlyacute or recovered HAV infection. ~Hepatitis B Surface Antibody REACTIVE Nonreactive [facility] Comment:REACTIVE: > 11.99 mI U/mL Hepatitis B Core Antibody Nonreactive Nonreactive [facility] Hepatitis C Antibody Nonreactive Nonreactive [facility] Comment:Antibodies to HCV no t detected; does not exclude early acuteHCV infection. Hepatitis B Surface Ag Negative Negative [facility] Blood 11/01/2023 7:40 AM EDT 11/01/2023 7:40 AM EDT Darcy Seo MD LAB BLOOD ORDERABLES Fin al Result Performing Organization Address [facility] Co de Phone Number [facility] [address] [place] [phone] * HIV-1/2 Antigen and Antibodies, Fourth Generation, with Reflexes (11/01/2023 7:40 AM EDT) HIV AB/AG Nonreactive Nonreactive [facility] Comment:HIV-1 p24 Ag and/or HIV-1/HIV-2 Ab not detected.A test result that is nonreactive does not exclude thepossibility of exposure to or infection with HIV-1 and/orHIV-2. Nonreactive results in this assay for individualswith prior exposure to HIV-1 and/or HIV-2 may be due toantigen and antibody levels that are below the limit ofdetection of this assay.The [employer] HIV Ag/Ab Combo assay result andsupplemental assay results should be interpreted inconjunction with the patient's clinical presentation,history and other laboratory results. If the results areinconsistent with clinical evidence, additional testing issuggested to confirm the result. Blood Venous blood specimen / Unknown 11/01/2023 7:40 AM EDT 11/01/2023 7:40 AM EDT Darcy Seo MD LAB BLOOD ORDERABLES Fin al Result [facility] [address] [place] [phone] * (ABNORMAL) Colonoscopy (06/07/2021) [facility] Signature Colonoscopy Abnormal( A) Normal Comment:Repeat 7 years Historical Provider HEALTH MAINTENANCE Edited Result - Final from Last 3 Months or Most Recently Relevant to Health Maintenance Insurance [facility] Address: [address] [place] [address] Care Teams Museum Guide Relationship Specialty Start Date End Date Darcy Seo MD [address] [place] [phone] PCP - General Family Medicine 05/01/16
--- OUTSIDE RECORDS SUMMARY | 2024-10-05 13:43 | XMS_ITS | Encounter Summary ---
Author Organization [employer] Address 75 [facility] 7t [place] [address] Care Team Providers Care Dental Appliance Mechanic Name Role Phone Darcy Seo MD Primary Care Provider + Reason for Visit * Reason Comments Med Refill Encounter Details Date Type Department Care Team ([facility] Contact Info) Description 08/08/2024 Refill [facility] MEDICINE [address] [place], [place] [phone] Jodie Mazariegos MD 230 [place], [place] [phone] Mixed hyperlipidemia Social History Tobacco Use Types [...] Description 10/11/2024 1:30 PM EDT Office Visit [facility] ADULT DENTAL [address] [place] [address] Pj Sullivan, DMD 230 [place] [address] 10/22/2024 11:45 AM EDT Office Visit [facility] MEDICINE [address] [place] [address] Darcy Seo MD [address] [place] [address] 11/12/2024 10:45 AM EDT Office Visit [facility] MEDICINE [address] [place] [address] Darcy Seo MD [address] [place] [address] documented as of this encounter Visit Diagnoses Diagnosis Mixed hyperlipidemia documented in this encounter Additional Health Concerns Assessment Noted Time PHQ-9 Depression Total Score: 3 10/27/19 24 2:40 PM EDT documented as of this encounter Care Teams Dental Appliance Mechanic Relationship Specialty Start Date End Date Darcy Seo MD [address] [place] [phone] PCP - General Family Medicine 05/01/16 documented as of this encounter
--- OUTSIDE RECORDS SUMMARY | 2024-10-05 13:43 | XMS_ITS | Encounter Summary ---
Author Organization [employer] Address 75 [facility] 7t [place] [address] Care Team Providers Care Production Hand Name Role Phone Darcy Seo MD Primary Care Provider + Reason for Visit * Reason Comments Dental Pain Encounter Details Date Type Department Care Team ([facility] Contact Info) Description 09/14/2024 11:30 AM EST Office Visit [facility] ADULT DENTAL [address] [place], [place] [phone] Henry Trevino, DDS [address] [place], [place] [phone] Hypersensitivity, initial encounter (Primary Dx); Gingivitis Social [...] the past 12 months, has t he [employer], oil or water [employer] threatened to shut off services in your [...] 09/14/24, Timeout Time: 1126 (Dental Emergency) Location: [facility] Tooth: Maxilla, #3, and #16 Procedure: X-rays and Emergency Verified the above with patient, human resource assistant, and provider. Confirmed via patient's chart, intraorally and by radiographs. Pain Coordinator: not applicable Chief Complaint Patient presents with [...] tablet 3 cholecalciferol (Vitamin D-3) 1.25 MG (79607 UT) capsule (Patient not taking: Reported on [...] crown and miya evaluations Prescriptions: Sent to [facility] on file Pt tolerated procedure well, all questions answered. Dismissed in good condition. [place]: [place] / [place] evaluation with Dr. Finnegan or Dr. Sullivan Dock Loader: Iman Kamara Dentist: Henry Trevino DDS documented in this encounter Plan of Treatment Upcoming Encounters Date Type Department Care Team (Late st Contact Info) Description 10/11/2024 1:30 PM EDT Office Visit [facility] ADULT DENTAL [address] [place] [address] Pj Sullivan, MARIELENA [address] [place] [address] 10/22/2024 11:45 AM EDT Office Visit [facility] MED[facility]INE [address] [place] [address] Darcy Seo MD [address] [place] [address] 11/12/2024 10:45 AM EDT Office Visit [facility] [address] [place] [address] Darcy Seo MD [address] [place] [address] Scheduled Orders Name Type Priority Associated Diagnoses [...] documented as of this encounter Care Teams Production Hand Relationship Specialty Start Date End Date Darcy Seo MD [address] [place] [phone] PCP - General Family Medicine 05/01/16 documented as of this encounter
--- OUTSIDE RECORDS SUMMARY | 2024-10-05 13:43 | XMS_ITS | Encounter Summary ---
Author Organization [employer] Address [address] [place] [address] 7t [place] [address] Care Team Providers Care First Press Operator Name Role Phone Darcy Seo MD Primary Care Provider + Reason for Visit * Reason Comments Med Refill Encounter Details Date Type Department Care Team (Late Contact Info) Description 04/16/2023 Refill [facility] MED[facility] [address] [place], [place] [phone] Darcy Seo MD 230 [place], [place] [phone] Mixed hyperlipidemia Social History Tobacco Use Types [...] Description 10/11/2024 1:30 PM EDT Office Visit [facility] ADULT DENTAL [address] [place], [place] [phone] Pj Sullivan DMD 230 [place], [place] [phone] 10/22/2024 11:45 AM EDT Office Visit [facility] MEDICINE [address] [place] [address] [phone] Darcy Seo MD [address] [place] [address] [phone] 11/12/2024 10:45 AM EDT Office Visit [facility] MEDICINE [address] [place] [address] [phone] Darcy Seo MD [address] [place] [address] [phone] documented as of this encounter Visit Diagnoses Diagnosis Mixed hyperlipidemia documented in this encounter Additional Health Concerns Assessment Noted Time PHQ-9 Depression Total Score: 0 10/29/19 23 9:42 AM EDT documented as of this encounter Care Teams First Press Operator Relationship Specialty Start Date End Date Darcy Seo MD [address] [place] [address] [phone] PCP - General Family Medicine 05/01/16 documented as of this encounter
--- OUTSIDE RECORDS SUMMARY | 2024-10-05 13:43 | XMS_ITS | Encounter Summary ---
Author Organization [employer] Address 75 [facility] 7t [place] [address] Care Team Providers Care Trim Operator Name Role Phone Darcy Seo MD Primary Care Provider + Encounter Details Date Type Department Care Team (Late Contact Info) Description 11/05/2022 Orders Only [facility] MEDICINE [address] [place] [address] [phone] Darcy Seo MD [address] [place], [place] [phone] Learning difficulty (Primary Dx); Metabolic syndrome X; [...] Description 10/11/2024 1:30 PM EDT Office Visit [facility] ADULT DENTAL [address] [place] [address] Pj Sullivan, DMD [address] [place] [address] 10/22/2024 11:45 AM EDT Office Visit [facility] MEDICINE [address] [place] [address] Darcy Seo MD [address] [place] [address] 11/12/2024 10:45 AM EDT Office Visit [facility] MEDICINE [address] [place] [address] Darcy Seo MD [address] [place] [address] documented as of this encounter Visit Diagnoses [...] documented as of this encounter Care Teams Trim Operator Relationship Specialty Start Date End Date Darcy Seo MD [address] [place] [address] [phone] PCP - General Family Medicine 05/01/16 documented as of this encounter
--- OUTSIDE RECORDS SUMMARY | 2024-10-05 13:43 | XMS_ITS | Encounter Summary ---
Author Organization [facility] Address [address] [place] [address] 7[address] [place] [address] Care Team Providers Care Biologist Aide Name Role Phone Darcy Seo MD Primary Care Provider + Encounter Details Date Type Department Care Team (Late st Contact Info) Description 10/29/2022 Abstract [facility] MEDICINE [address] [place], [place] [phone] Darcy Seo MD [address] [place] [address] Social History Tobacco Use Types Packs/Day Years [...] Description 10/11/2024 1:30 PM EDT Office Visit [facility] ADULT DENTAL [address] [place], [place] [phone] Pj Sullivan DMD [address] [place] [address] 10/22/2024 11:45 AM EDT Office Visit [facility] MEDICINE [address] [place] [phone] Darcy Seo MD [address] [place], [place] [phone] 11/12/2024 10:45 AM EDT Office Visit [facility] MEDICINE [address] [place] [address] [phone] Darcy Seo MD [address] [place], [place] [phone] documented as of this encounter Visit Diagnoses Not on filedocumented in this encounter Additional Health Concerns Assessment Noted Time PHQ-9 Depression Total Score: 0 10/29/19 23 9:42 AM EDT documented as of this encounter Care Teams Biologist Aide Relationship Specialty Start Date End Date Darcy Seo MD [address] [place] [address] [phone] PCP - General Family Medicine 05/01/16 documented as of this encounter
== END 2024-10-05 13:36 | disposition home or self-care (01) ==
LOC: HO.HUSH 11:07
PROVIDERS: PCP Internal Medicine; Visit Provider Nurse Practitioner Family
DX: N52.9 Male erectile dysfunction, unspecified (principal); E29.1 Testicular hypofunction; N32.81 Overactive bladder; N40.1 Benign prostatic hyperplasia with lower urinary tract symptoms
CPT/HCPCS: 99214

== ENCOUNTER 2024-11-20 07:11 | Outpatient (REF) | payer BC, SELFPAY ==
[2024-11-20 08:09] LABS: Hemoglobin 14.2 g/dl (14.0-18.0); Mean Corpuscular Volume 87.8 fL (80.0-98.0); Mean Platelet Volume 10.3 fL (9.4-12.4); Platelet Count 192 X10*3/uL (160-400); Red Cell Distribution Width 13.7 % (11.0-16.0); White Blood Count 5.2 X10*3/uL (4.8-10.8)
[2024-11-20 08:45] LABS: Estimated Average Glucose 134 mg/dL; Hemoglobin A1C 171.7234 umol/L; Hemoglobin A1c % 6.3 % (<6.0)
[2024-11-20 09:23] LABS: Anion Gap 9 (12-20); Blood Urea Nitrogen 16 mg/dL (9-16); Calcium 9.5 mg/dL (8.4-10.2); Carbon Dioxide 25 mmol/L (22-29); Chloride 109 mmol/L (96-108); Cholesterol 133 mg/dL (<200); Estimated Glomerular Filt Rate > 60; Glucose Random 107 mg/dL (60-115); HDL Cholesterol 37 mg/dL (>40); LDL Cholesterol Calculated 80 mg/dL (<100); Potassium 4.3 mmol/L (3.3-5.1); Sodium 139 mmol/L (135-145); Triglycerides 80 mg/dL (<150)
[2024-11-20 09:28] LABS: Vitamin D 25-OH Total 23.1 ng/mL (>30)
[2024-11-20 09:34] LABS: PSA,Total (Free>4and<10) 1.98 ng/mL (0.00-4.00)
[2024-11-20 10:53] LABS: Reflex LDLD? No
[2024-11-22 08:06] LABS: Syphilis Screen Nonreactive (Nonreactive)
[2024-11-26 19:59] LABS: Testosterone, Free 42.3 pg/mL (35.0-155.0); Testosterone, Total 188 ng/dL (250-1100)
== END 2024-11-20 07:12 | disposition home or self-care (01) ==
LOC: HO.LAB 07:11
PROVIDERS: Absent Provider Nurse Practitioner Family; PCP Internal Medicine; Visit Provider Internal Medicine
DX: Z00.00 Encounter for general adult medical examination without abnormal findings (principal); I10 Essential (primary) hypertension; E29.1 Testicular hypofunction; N52.9 Male erectile dysfunction, unspecified; Z12.5 Encounter for screening for malignant neoplasm of prostate
CPT/HCPCS: 36415; 80048; 80061; 82306; 83036; 84153; 84402; 84403; 85027; 86780

== ENCOUNTER 2024-12-02 08:16 | Outpatient (AMB) | payer BC, SELFPAY ==
--- NOTE | 2024-12-02 08:33 | A.OFFVIS_ITS ---
Intake Visit Reasons: Followup/Testo Intake Note: Patient presents today for follow up on: hypogonadism, OAB, BPH, and Erectile Dysfunction Urology Medication:Tadalafil, testosterone, oxybutynin Antibiotic Allergy:PENICILLINS Blood Thinner: Aspirin PVR: 4ml's Medical Social Consultant Required: Yes Medical Social Consultant Services: Medical Social Consultant Present Medical Social Consultant Name: Emma Feliz181 Accompanied by: Self / Same As Patient Allergies cortisone [CORTISONE] Allergy (Unknown, Verified 12/02/24 09:22) TACHYCARDIA Penicillins [PCN] Allergy (Unknown, Verified 12/02/24 09:22) HIVES Medication List - Last Reconciled 12/02/24 by ANGELIQUE Booth aspirin 81 mg PO DAILY atorvastatin 20 mg PO DAILY lisinopril 5 mg PO DAILY oxybutynin chloride ER 5 mg PO DAILY 90 days tadalafil 20 mg PO .PRN 90 days tadalafil (Cialis) 5 mg PO DAILY 90 days testosterone 4 pumps topical DAILY 30 days HPI Comments Details: Yuri is a 54-year-old Setswana-speaking male patient of Dr. Seo. He has a past medical history of hypertension, hyperlipidemia, and hypogonadism. He presents to the office today for follow-up of his hypogonadism as well as lower urinary tract symptoms. In discussion with the patient today he reports compliance with urological medications as prescribed (testosterone, oxybutynin, and daily low dosing of Cialis daily) recent PSA, hemoglobin, hematocrit, and testosterone free and total results were reviewed with the patient today as noted and trended below. He continues to report issues with his erections. He reports he is able to obtain an erection however feels maintaining an erection adequate for penetration is difficult. We discussed continuation of low testosterone despite testosterone replacement. We discussed further treatment options and risks and benefits of these treatment options. During last visit testosterone was increased to 3 pumps per day however patient reports utilizing only 2 pumps per day. He also reports noting improvement in lower urinary tract symptoms with 5 mg of oxybutynin daily. PSA: 09/20 0.3, 09/21 0.4, 11/19 2.0 Testosterone: 11/13 66, 07/19 213, 03/20 213, 09/21 148, 11/19 188 Free testosterone: 03/20 43.5, 09/21 28.7, 11/19 42.3 Hemoglobin/hematocrit: 09/20 137.7/41.6, 09/21 15.4/46.3, 11/19 14.2/43.0 We did discuss bump in PSA. We discussed potential causes of bump in PSA as well as refraining from caffeine or alcohol morning of lab draw, any sexual activity the night before day of morning blood work, and heavy lifting 1-2 days prior. Previous workup has included a retroperitoneal ultrasound 11/18 noting bilateral kidneys with no calculi, lesions, and or hydronephrosis. The bladder is well distended and normal. Bladder jets are demonstrated. Pre void bladder volume is approximately 180 mL. Postvoid bladder volume is approximately 30 mL. Enlarged prostate of approximately 35 mL. He has a longstanding history of testosterone replacement and has previously followed up with [facility]. He has trialed injectable IM testosterone however did not wish to continue therefore was switched to topical gels. We discussed at length potential causes of hypogonadism, lower urinary tract symptoms, and erectile dysfunction. We discussed further treatment options of these urological conditions and risks and benefits of these treatment options. He otherwise denies incontinence, gross/visible hematuria, dysuria, foul smelling urine, changes to urinary stream, flank pain, fever, and or chills. He otherwise offers no other issues or concerns at this time. [facility] Surgical History Hx of knee surgery History of cholecystectomy Family History Father Heart attack No family history of cancer Mother No problems noted. Social History Alcohol intake: current Alcohol intake frequency: holidays/special occasions only Patient Tobacco Use Status: Never used Tobacco Review of Systems Const All systems reviewed & are unremarkable except as noted in HPI and below Physical Exam Const General: cooperative, healthy appearing, comfortable, no acute distress, well developed, alert and awake Nutritional Appearance: overweight Orientation/consciousness: patient oriented x3 Limitations: no limitations HEENT Head: Yes normal to inspection, Yes normocephalic and Yes atraumatic Ears: hearing grossly normal bilaterally Eyes General: appearance normal, both eyes and all related structures Neck Neck: Yes normal visual inspection and Yes trachea midline Chest Chest palpation & inspection: normal inspection of the chest Resp Effort & Inspection: normal respiratory effort and able to speak in complete sentences Cardio Rate: regular rate GI Inspection: Yes normal to inspection General: Yes no CVA tenderness Back/Spine/Pelvis Back: no CVA tenderness Skin General skin exam: no rashes or lesions noted Neuro General: patient oriented x3 Extrem General: Yes normal to inspection Psych Appearance: grossly normal and well kempt Mental Status: mental status grossly normal Speech and movement: Normal speech and movement present and Clear speech present Affect: normal affect Attitude: cooperative Thought process: Normal thought process present Thought content: Normal thought content present Insight: Fair insight present (Psych) Judgement: Fair judgement present (Psych) Office Procedures Post Void Residual Post Residual Void Post Void Residual (PVR): 4 03812-Gndy Void Residual by ultrasound Results AMB Urinalysis, Automated UA Leukoctes 0 Micki/uL Last Edit by [employer] on 12/02/24 08:46 UA Nitrite Last Edit by [employer] on 12/02/24 08:46 UA Urobilinogen 0.2 mg/dL Last Edit by [employer] on 12/02/24 08:46 UA Protein 0 mg/dL Last Edit by [employer] on 12/02/24 08:46 UA pH 6.0 Last Edit by [employer] on 12/02/24 08:46 UA Blood 0 Alberto/uL Last Edit by [employer] on 12/02/24 08:46 UA Specific Shaniko 1.015 Last Edit by [employer] on 12/02/24 08:46 UA Ketone Last Edit by [employer] on 12/02/24 08:46 UA Bilirubin 0 mg/dL Last Edit by [employer] on 12/02/24 08:46 UA Glucose 0 mg/dL Last Edit by [employer] on 12/02/24 08:46 Results Reviewed Results Reviewed: Laboratory Last Values Urine pH (Auto) 6.0 12/02/24 08:45 Specific Shaniko (Auto) 1.015 12/02/24 08:45 Urine Protein (Auto) 0 mg/dL 12/02/24 08:45 Glucose (UA)(Auto) 0 mg/dL 12/02/24 08:45 Urine Blood (Auto) 0 Alberto/uL 12/02/24 08:45 Urine Bilirubin (Auto) 0 mg/dL 12/02/24 08:45 Urine Urobilinogen (Auto) 0.2 mg/dL 12/02/24 08:45 Leukocyte Esterase (Auto) 0 Micki/uL 12/02/24 08:45 Assessment & Plan Assessment & Plan (1) Hypogonadism in male: Code(s): E29.1 - Testicular hypofunction Category: Medical (2) OAB (overactive bladder): Code(s): N32.81 - Overactive bladder Category: Medical (3) Erectile dysfunction: Code(s): N52.9 - Male erectile dysfunction, unspecified Category: Medical Plan In office urinalysis results reviewed with the patient today; as noted above. PVR 4 mLs. Recent hemoglobin, hematocrit, testosterone, free testosterone, and PSA results reviewed with the patient today; as noted above. We discussed further treatment options of hypogonadism and risks and benefits of these treatment options. We also discussed further treatment options of erectile dysfunction and risks and benefits of these treatment options. Will increase testosterone replacement to 4 pumps per day. Refills provided on urological medications as requested. We discussed bladder triggers/irritants. We also discussed potential near future in office urodynamics and or cystoscopy if symptoms persist and/or worsen. We discussed lifestyle modifications to assist with hypogonadism, erectile dysfunction as well as overall health and well-being. Will obtain PSA, CBC, and testosterone free and total in 3 months. Follow-up in 3 months with labs and PVR to be completed prior; or sooner with any issues, concerns, and or questions. Orders: Orders AMB Urinalysis Automated Today Z13.9 - Encounter for screening, unspecified AMB Post Void Residual by ultrasound Today N32.81 - Overactive bladder Prostate Specific Antigen 3 Months E29.1 - Testicular hypofunction Testosterone, Free/Total 3 Months E29.1 - Testicular hypofunction Complete Blood Count no Diff 3 Months E29.1 - Testicular hypofunction Medications: Changed From testosterone apply 2 pumps over max area of EACH upper arm and shoulder 4 pumps topical DAILY 30 days 2 grams 5RF E29.1 - Testicular hypofunction To testosterone apply 4 pumps over max area of EACH upper arm and shoulder 4 pumps topical DAILY 30 days 2 grams 5RF E29.1 - Testicular hypofunction Refilled tadalafil [id number] [facility] [id number] Member [id number] 20 mg PO .PRN 90 days 45 tabs 2RF sexual activity N52.01 - Erectile dysfunction due to arterial insufficiency, N52.9 - Male erectile dysfunction, unspecified oxybutynin chloride ER 5 mg PO DAILY 90 days 90 tabs 0RF for frequent urination tadalafil (Cialis) [id number] [facility] [id number] Member [id number] 5 mg PO DAILY 90 days 90 tabs 3RF Patient Instructions: The patient had an opportunity to ask questions regarding the treatment plan. All questions were answered. Physical exam, labs, and imaging were discussed and reviewed in detail. As well as risks, benefits, and discussion of treatment choices. No major barriers to understanding were identified. The patient expressed understanding and agreement with the above treatment plan. The patient was made aware they should contact our office by phone for worsening of their current condition, the appearance of new symptoms, or with any questions or concerns. Compliance is encouraged with any medications and follow up testing that is ordered. It is a privilege to be allowed the opportunity to participate in? your urological care.? Again, if you have any questions or concerns If you have any questions or concerns please do not hesitate to contact me. The office is [phone]. This note is constructed using voice recognition software. While every effort has been made to ensure accuracy information security manager errors may have been included. Yours sincerely, ANGELIQUE Booth Coding Level of Care Code Est Pt Level 4 (25141) Diagnoses Hypogonadism in male E29.1 OAB (overactive bladder) N32.81 Erectile dysfunction N52.9 CPT Codes Post Residual Void - PVR CPT Code: 05962-Oces Void Residual by ultrasound ([id number]) Time Spent (min) 40
--- OUTSIDE RECORDS SUMMARY | 2024-12-02 08:34 | XMS_ITS | Encounter Summary ---
Author Organization [facility] Address [address] [place] [address] Care Team Providers Care Tool Supervisor Name Role Phone Darcy Seo MD Primary Care Provider + Encounter Details Date Type Department Care Team ([facility] st Contact Info) Description 07/22/2023 Orders Only [facility] MEDICINE [address] [place], [place] [phone] Kelsi Roche MD [address] [place], [place] [phone] Primary male hypogonadism (Primary Dx); Low testosterone [...] Care Team (Late st Contact Info) Description 12/27/2024 2:00 PM EDT Office Visit [facility] ADULT DENTAL [address] [place] [address] Puma Loganaris [address] [place] [address] documented as of this encounter Visit Diagnoses Diagnosis Primary male hypogonadism- Primary Other testicular hypofunction Low testosterone documented in this encounter Additional Health Concerns Assessment Noted Time PHQ-9 Depression Total Score: 0 10/29/19 9:42 AM EDT documented as of this encounter Care Teams Tool Supervisor Relationship Specialty Start Date End Date Darcy Seo MD [address] [place] [address] PCP - General Family Medicine 05/01/16 documented as of this encounter
--- OUTSIDE RECORDS SUMMARY | 2024-12-02 08:34 | XMS_ITS | Encounter Summary ---
Author Organization [facility] Address [address] [facility] 7t [place] [address] Care Team Providers Care Food Sanitarian Name Role Phone Darcy Seo MD Primary Care Provider + Encounter Details Date Type Department Care Team (Late st Contact Info) Description 10/29/2022 Abstract [facility] MEDICINE [address] [place], [place] [phone] Darcy Seo MD [address] [place], [place] [phone] Social History Tobacco Use Types Packs/Day Years [...] Description 12/27/2024 2:00 PM EDT Office Visit [facility] ADULT DENTAL [address] [place], [place] [phone] Brandee Logan [address] [place] [address] documented as of this encounter Visit Diagnoses Not on filedocumented in this encounter Additional Health Concerns Assessment Noted Time PHQ-9 Depression Total Score: 0 10/29/19 23 9:42 AM EDT documented as of this encounter Care Teams Food Sanitarian Relationship Specialty Start Date End Date Darcy Seo MD [address] [place] [address] PCP - General Family Medicine 05/01/16 documented as of this encounter
--- OUTSIDE RECORDS SUMMARY | 2024-12-02 08:34 | XMS_ITS | Encounter Summary ---
Author Organization [facility] Address [address] [facility] 7t [place] [address] Care Team Providers Care Odd Piece Checker Name Role Phone Darcy Seo MD Primary Care Provider + Encounter Details Date Type Department Care Team (Late Contact Info) Description 11/05/2022 Orders Only [facility] MEDICINE [address] [place] [address] [phone] Darcy Seo MD [address] [place] [address] [phone] Learning difficulty (Primary Dx); Metabolic syndrome X; [...] Department Care Team (Late Contact Info) Description 12/27/2024 2:00 PM EDT Office Visit [facility] ADULT DENTAL [address] [place] [address] Brandee Logan [address] [place] [address] documented as of this encounter Visit Diagnoses [...] documented as of this encounter Care Teams Odd Piece Checker Relationship Specialty Start Date End Date Darcy Seo MD [address] [place] [address] PCP - General Family Medicine 05/01/16 documented as of this encounter
--- OUTSIDE RECORDS SUMMARY | 2024-12-02 08:35 | XMS_ITS | Encounter Summary ---
Author Organization [employer] [facility] Address [address] [facility] 7t [place] [address] Care Team Providers Care Sharepoint Web Developer Name Role Phone Darcy Seo MD Primary Care Provider + Encounter Details Date Type Department Care Team (Late st Contact Info) Description 10/14/2022 Orders Only [facility] [address] [place] [address] Katarina Good LPN Social History Tobacco Use [...] Description 12/27/2024 2:00 PM EDT Office Visit [facility] ADULT DENTAL [address] [place] [address] Desmond, Brnadee [address] [place] [address] documented as of this encounter Visit Diagnoses Not on filedocumented in this encounter Care Teams Sharepoint Web Developer Relationship Specialty Start Date End Date Darcy Seo MD [address] [place] [address] PCP - General Family Medicine 05/01/16 documented as of this encounter
--- OUTSIDE RECORDS SUMMARY | 2024-12-02 08:35 | XMS_ITS | Encounter Summary ---
Author Organization [facility] [facility] Address [address] [facility] [address]t [place] [address] Care Team Providers Care Computer Lab Assistant Name Role Phone Darcy Seo MD Primary Care Provider + Reason for Visit * Reason Onset Date Comments Med Refill 12/01/2024 Encounter Details Date Type Department Care Team ([facility] st Contact Info) Description 12/01/2024 Refill [facility] MEDICINE [address] [place], [place] [phone] Darcy Seo MD 230 [place] [address] Nonintractable headache, unspecified chronicity pattern, unspecified headache type; Essential hypertension Social History Tobacco Use Types Packs/Day Years Used Date Smoking Tobacco: Never Passive Smoke Exposure: Never Smokeless Tobacco: Never Alcohol Use Standard [...] Date Recorded Patient Health Questionnaire-2 Score 0 10/22/2024 Internet Access Answer Date Recorded Internet Access Q1 Yes 10/12/2024 Internet Access Q2 Not on file 10/12/2024 Sex and Gender Information Value Date Recorded Sex Assigned at Male 05/27/2022 10:20 AM EDT Legal Sex Male 10:20 AM EDT Gender Identity Male 05/27/2022 10:20 AM EDT Sexual Orientation Straight 05/27/2022 10 :20 AM EDT documented as of this encounter Plan of Treatment Upcoming Encounters Date Type Department Care Team (Late st Contact Info) Description 12/27/2024 2:00 PM EDT Office Visit [facility] ADULT DENTAL [address] [place] [address] Desmond, Brandee [address] [place] [address] documented as of this encounter Visit Diagnoses Diagnosis Nonintractable headache, unspecified chronicity pattern, unspecified headache type Essential hypertension Unspecified essential hypertension documented in this encounter Additional Health Concerns Assessment Noted Time PHQ-9 Depression Total Score: 3 10/27/19 24 2:40 PM EDT documented as of this encounter Care Teams Computer Lab Assistant Relationship Specialty Start Date End Date Darcy Seo MD [address] [place] [address] PCP - General Family Medicine 05/01/16 documented as of this encounter
--- OUTSIDE RECORDS SUMMARY | 2024-12-02 08:35 | XMS_ITS | Clinical Summary ---
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 Name Role Phone Darcy Seo MD Primary Care Provider + Allergies Active Allergy Reactions Criticality Noted Date Comments Cortisone 12/25/2016 Hydrocortisone Shortness of breath High 09/12/2021 Penicillin V 09/28/2010 Other reaction(s): unspecified Penicillins Hives,Rash Low 09/28/2010 Other reaction(s): unspecified Medications Aspirin Low Dose 81 MG EC tabletIndications: Nonintractable headache, unspecified chronicity pattern, unspecified headache type,Essential hypertension TAKE 1 TABLET(81 MG) BY MOUTH IN THE MORNING 90 tablet 3 11/25/19 24 Active oxybutynin (Ditropan) 5 MG tabletIndications: BPH Take 5 mg by mouth Once per day. Active lisinopril 5 MG tabletIndications: Essential hypertension Take 1 tablet (5 mg) by mouth Once per day. 90 tablet 3 01/12/20 24 Active atorvastatin (Lipitor) 20 MG tabletIndications: Mixed hyperlipidemia [...] 20 doses. 20 tablet 09/14/19 25 Active buPROPion XL (Wellbutrin XL) 150 MG 24 hr tablet Take 1 tablet (150 mg) by mouth Once per day. Do not crush, chew, or split. 30 tablet 11 10/23/19 25 026 Active hydrocortisone 0.5 % cream Apply topically 2 times daily. 15 g 11/13/19 25 Active tadalafil (Cialis) 5 MG tablet Take 1 tablet (5 mg) by mouth Once per day. 30 tablet 11/13/19 25 Active Diclofenac Sodium 1 % gel Apply 1 inch topically if needed in the morning and at bedtime (pain). 60 g 11/13/19 25 Active calcium 500 MG tablet Take 1 tablet (500 mg) by mouth Once per day. 90 tablet 3 11/23/19 25 Active ergocalciferol (Vitamin D2) 1.25 MG (86231 UT) capsule Take 1 capsule (1.25 mg) by mouth 1 (one) time per week. 12 capsule 1 11/23/19 25 025 Active tadalafil (Cialis) 5 MG tablet Take 5 mg by mouth Once per day. 11/27/19 24 025 Discontin ued(Thera py completed ) clindamycin (Cleocin) 300 MG capsule Take 2 capsules one hour before dental procedure 12 capsule 10/15/19 25 025 Discontin ued(Thera py completed ) senna-docusate sodium (Senokot-S) 8.6-50 MG tablet Take 1 tablet by mouth if needed each day for constipation. 30 tablet 3 10/23/19 25 025 Discontin ued(Thera py completed ) Calcium Carbonate-Vit D-Min (Caltrate 600+D Plus Minerals) 600-800 MG-UNIT tablet 1 tab po/d 90 tablet 3 10/23/19 25 025 Discontin ued(Dose adjustmen t) Active Problems Problem Noted Date Diagnosed Date Encounter for preventative adult health care exa mination 11/12/2024 Sprain of right hip 11/12/2024 Other partial intestinal obstruction 10/22/2024 Assessment & Plan (10/22/2024 2:29 PM EDT): Resolved, s/p hospital discharge last week, he has chronic constipation and had colonoscopy last year polyps resection. Advised regarding increase water and fiber intake, to take raisins, prunes, flaxseed powder, pear or papaya. Restart senna/docusate as needed constipation> 1 day. Class 1 obesity due to exces s calories with serious comorbidity and body mass index (BMI) of 33.0 to 33.9 in adult 10/22/2024 Assessment & Plan (10/22/2024 2:21 PM EDT): Discussed re weight reduction options including exercise, life style modifications, diet. Recommended to decrease soda and sugary beverage consumption, increase protein intake with meals (at least 1 portion of protein with each meal) to assist with satiety, increase dietary fiber Recommended at least 150 min/week of moderate intensity exercise. Declined a referral to dietitian Start Wellbutrin XR mostly for anxiety and will adjust also according to appetite and tolerance. May consider other medications, phentermine is contraindicated due to history of hypertension Anxiety 10/22/2024 Assessment & Plan (10/22/2024 2:20 PM EDT): TREVOR-7 score of 1/PHQ is 3. Patient agreed to start Wellbutrin XR 150 mg/day and follow-up with me in 2 months, we discussed about side effects including palpitations, headache. He declined psychotherapy at this time, we discussed about coping mechanisms with anxiety including give himself him last time to adapt to new surroundings, use of reminders for appointments etc. He feels safe at home and is able to reach out for safety, follow-up with me in 2 months Heartburn 09/14/2024 Overview (09/14/2024): omeprazole prn Hypersensitivity 09/14/2024 Gingivitis 09/14/2024 Slow transit constipation 01/12/2024 Assessment & Plan (01/12/2024 2:06 PM EDT): Likely related to Ca and Iron content on MVI Increase water and fiber intake, start sennakot prn. Osteopenia of lumbar spine 01/12/2024 Overview (01/12/2024): Dexa scan on 10/2023 Assessment & Plan (10/22/2024 2:22 PM EDT): Sec to hypogonadism, continue testosterone supplementation. 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 May have difficulty for retention of new information including fluency with a new language IFG (impaired fasting glucose) 03/10/2023 Hordeolum externum [...] fu Klinefelter syndrome 11/05/2022 Assessment & Plan (10/22/2024 2:18 PM EDT): Patient has hypogonadism, currently on testosterone replacement therapy. He also has sleep apnea and intellectual disability that limits learning new concepts. Special testing accommodations will be provided as needed, mainly to the up instructions and testing on his [place] language. DEXA scan to be done every 2 to 5 years, for evaluation of osteoporosis/increased risk Assessment & Plan (07/10/2023 1:29 PM EST): [...] 10/07/2022 Essential hypertension 10/07/2022 Assessment & Plan (10/22/2024 2:26 PM EDT): Controlled. Continue lisinopril 5 mg and monitor BP at home. Discussed importance of weight reduction, unclear if he is still following at his local the weight specialist program Counseled re low salt diet/increase moderate physical activity. Check home BP BIW and prn CP/CARL/SAHNI Non smoking patient. Follow-up with me in 6 months Assessment & Plan (01/12/2024 2:05 PM EDT): Controlled. I congratulated him for weight reduction Continue lisinopril 5mg and monitor BP at home. FU with disease education specialist to adjsut meds if needed or [...] 10/07/2022 Learning difficulty 10/07/2022 Assessment & Plan (10/22/2024 2:16 PM EDT): Status post neuropsych testing x 2 in 2023. 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 May have difficulty with retention of new information especially learning a new language. He has applied for [place] citizenship and an exception for Citizen Of [place] test and completing the rest of the exam on his [place] language can be accessed through disability exceptions (medical certification form), patient will bring forms to HIM for me to complete the Assessment & Plan (10/28/2022 9:05 PM EDT): Discussed at previous visit. He had been referred to neuropsych testing but needed BE prior to test. He was evaluated by Troy (Adrian Rutledge ) on 05/27/22 but was unable to get in touch with the next vertica architect (?cousleing? Neuropsych? Psychologist?). 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 We discussed regarding weight reduction, increase exercise as and strengthening of both knees. He wants to start a gym program, declined PT at this time Follow-up with me in 6 months with orthopedics as needed, he can call back as needed if he needs PT. 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, I told him to [...] Encounters Date Type Department Care Team Description 12/01/2024 Refill [facility] [address] [place] [phone] Darcy Seo MD Nonintractable headache, unspecified chronicity pattern, unspecified headache type; Essential hypertension 11/22/2024 Telephone [facility] [address] [place] [phone] Darcy Seo MD Results 11/22/2024 Orders Only [facility] [address] [place] [phone] Darcy Seo MD 11/20/2024 Orders Only GENERIC EXTERNAL DATA DEPARTMENT Provider, Generic External Data 11/12/2024 10:45 AM EDT Office Visit [facility] [address] [place] [phone] Darcy Seo MD Essential hypertension (Primary Dx); Obstructive sleep apnea syndrome; Erectile dysfunction due to diseases classified elsewhere; Sprain of right hip, initial encounter; Encounter for preventative adult health care examination; Encounter for preventive health examination 11/12/2024 Travel 11/09/2024 Telephone [facility] [address] [place] [phone] Darcy Seo MD Chart prep 11/08/2024 Travel 11/03/2024 Patient Outreach [facility] [address] [place] [phone] Darcy Seo MD Pre-visit Planning ([facility] screening completed on 10/12/2024) 10/22/2024 11:45 AM EDT Office Visit [facility] [address] [place] [phone] Darcy Seo MD Essential hypertension (Primary Dx); Other partial intestinal obstruction (CMS/HCC); Osteopenia of lumbar spine; Class 1 obesity due to excess calories with serious comorbidity and body mass index (BMI) of 33.0 to 33.9 in adult; Primary osteoarthritis of both knees; Anxiety; Klinefelter syndrome; Memory impairment; Learning difficulty; Dietary counseling; Exercise counseling 10/22/2024 Travel 10/21/[address] [phone] Darcy Seo MD Chart prep 10/21/2024 Travel 10/14/2024 3:00 PM EDT Office Visit [facility] ADULT D[facility]AL [address] [place] [phone] Shaina Bloom 10/13/2024 Travel 10/12/2024 Patient Outreach [address] [phone] Darcy Seo MD 10/11/2024 1:30 PM EDT Office Visit [facility] [address] [place] [phone] Pj Sullivan DMD 10/04/2024 Travel 09/18/2024 Orders Only GENERIC EXTERNAL DATA DEPARTMENT Provider, Generic External Data 09/14/2024 11:30 AM EST Office Visit [facility] [address] [place] [phone] Henry Trevino DDS Hypersensitivity, initial encounter (Primary Dx); Gingivitis 09/04/2024 Orders Only GENERIC EXTERNAL DATA DEPARTMENT Provider, Generic External Data from Last 3 Months Immunizations Name Administration Dates Next Due Influenza injectable quadriv alent IIV4 with preservative 05/19/2017 Influenza injectable quadriv alent preservative free 05/20/2023,04/11/2022,05/11/2020 Influenza, IIV3, injectable 06/14/2011 Pfizer Covid-19 Vaccine 12+ 11/12/2024, 3 Pneumococcal Conjugate PCV 20 11/12/2024 TD (adult), 2 Lf tetanus tox oid, preservative free, adsorbed 05/11/2020 Tdap 08/03/2009 Zoster, Recombinant 10/02/2023,08/03/2020,2019 Social History Tobacco Use Types Packs/Day Years Used Date Smoking Tobacco: Never Passive Smoke Exposure: Never Smokeless Tobacco: Never Tobacco Cessation:Counseling Given: [...] Sign Reading Time Taken Comments Blood Pressure 155/84 11/12/2024 10:35 AM EDT Pulse 80 11/12/2024 10:35 AM EDT Temperature 37 ??C (98.6 ??F) 11/12/2024 10:35 AM EDT Respiratory Rate 20 11/12/2024 10:35 AM EDT Oxygen Saturation 97% 10/22/2024 11:52 AM EDT Inhaled Oxygen Concentration - - Weight 128 kg (281 lb 3.2 oz) 11/12/2024 10:35 A M EDT Height 193 cm (6' 4 ) 11/12/2024 10:35 AM EDT Body Mass Index 34.23 11/12/2024 10:35 AM EDT Plan of Treatment Upcoming Encounters Date Type Department Care Team (Late st Contact Info) Description 12/27/2024 2:00 PM EDT Office Visit [facility] ADULT D[facility]AL [address] [place] [address] Des[place], Brandee [address] [place] [address] Health Maintenance Due Date Last Done Comments CT Colonography 1968 FIT DNA/Cologuard 1968 FIT 1968 FOBT 1968 Sigmoidoscopy 1968 Alcohol/Substance Use Screening 1980 Hepatitis B Vaccines (1 of 3 - 19+ 3-dose series) 11/30/1987 Dental Prophylaxis 02/02/2013 08/04/2012, 0 12/18/2011, 05/15/2011, Additional history exists Influenza Vaccine (#1) 2024 3, 04/11/2022, 05/11/2020, Additional history exists Dental Oral Exam 04/14/2025 10/11/2024, , 05/15/2011, Additional history exists Dental X-Ray: Bitewings 10/12/2025 10/12/19, 08/21/2015, 12/18/2011 SDOH Screening 10/12/2025 10/12/2024 Depression Screening 10/22/2025 10/22/2024, 10/27/19 24 Tobacco Screening 11/12/2025 11/12/2024 Diabetes: Hemoglobin A1C 11/20/2025 025, 03/13/2023, 02/11/2023, Additional history exists Dental X-Ray: Full Mouth 10/13/2027 10/11/2024, 07/29 Colonoscopy 06/07/2028 06/07/2021 Colorectal Cancer Screening 06/07/2028 Lipid Panel 11/20/2029 11/20/2024, 040 12/2023, 10/29/2022, Additional history exists DTaP/Tdap/Td Vaccines (3 - Td or Tdap) 05/11/2030 05/11/2020, 08/03/2009 RSV Patients and Patients Aged 60 years or older (1 - 1-dose 75+ series) 11/30/2043 HIV Screening Completed 11/01/2023 Hepatitis C Screening Completed 11/01/2023 Zoster Vaccines Completed 12/16/2023, 03/0 01/2024, 08/03/2020, Additional history exists COVID-19 Vaccine Completed 11/12/2024, , 08/18/2021, Additional history exists Pneumococcal Vaccine: 50+ Years Completed 11/12/2024 HIB Vaccines Aged Out No longer eligi [...] Comments TESTOSTERONE, FREE (DIALYSIS) AND TOTAL,MS Routine 11/20/2024 7:43 AM EDT PSA, TOTAL WITH REFLEX TO PSA, FREE Routine 11/20/2024 7:43 AM EDT CBC Routine 11/20/2024 7:43 AM EDT VITAMIN D,25-OH,TOTAL,IA Routine 11/20/2024 7:43 AM EDT Encounter for preventive health examination HEMOGLOBIN A1C Routine 11/20/2024 7:43 AM EDT Essential hypertension BASIC METABOLIC PANEL Routine 11/20/2024 7:43 AM EDT Essential hypertension LIPID PANEL WITH REFLEX TO DIRECT LDL Routine 11/20/2024 7:43 AM EDT Essential hypertension SYPHILIS SCREEN Routine 11/20/2024 7:43 AM EDT Encounter for preventive health examination NO CHARGE VISIT Routine 10/14/2024 3:00 PM EDT INTRAORAL - COMPLETE SERIES OF RADIOGRAPHIC IMAGES Routine 10/11/2024 1:30 PM EDT PERIODIC ORAL EVALUATION - ESTABLISHED PATIENT Routine 10/11/2024 1:30 PM EDT 30 DO COMPOSITE FILLING Routine 10/11/2024 12:00 AM EDT 13 DO COMPOSITE FILLING Routine 10/11/2024 12:00 AM EDT 15 MO COMPOSITE FILLING Routine 10/11/2024 12:00 AM EDT 19 CROWN - PORCELAIN/CERAMIC Routine 10/11/2024 12:00 AM EDT TESTOSTERONE, FREE (DIALYSIS) AND TOTAL,MS Routine 09/18/2024 [...] AM EDT Visit for preventive health examination HM COLONOSCOPY Routine 06/07/2021 PROPHYLAXIS - ADULT Routine 08/04/2012 1 2:00 AM EST from Last 3 Months or Most Recently Relevant to Health Maintenance Results * Syphilis Screen (11/20/2024 7:43 AM EDT) Syphilis Screen Nonreactive Nonreactive [facility] Blood 11/20/2024 7:43 AM EDT 11/20/2024 7:43 AM EDT us Darcy Seo MD LAB BLOOD ORDERABLES Fin al Result [facility] [address] [place] [phone] * (ABNORMAL) Vitamin D, 25-Hydroxy, Total, Immunoassay (11/20/2024 7:43 AM EDT) Vitamin D 25-OH Total 23.1(L) >30 ng/mL [facility] Comment: Health Based Reference Values*< 20 ??ng/mL ??[id number] ng/mL ??Insufficient> 30 ??ng/mL ??Sufficient*Sangeeta KEITH. N Engl J Med. 2007;357:266-280There is no well-established upper level of normal vitamin Dlevels. Some laboratories use 50 ng/mL as an upper limit ofnormal. However, toxicity is patient-dependent and may occurat any level. Careful correlation with the patient'spresentation is necessary and, if there is concern forvitamin D toxicity, treatment should be consideredirrespective of the serum level.Care must be taken in interpreting Vitamin D results fromdifferent laboratories and methodologies. ??Published datademonstrated that results from patients undergoinghemodialysis may show a negative bias when tested withvarious automated 25-OH vitamin D assays when compared toLC- MS/MS.When testing samples from patients whose predominant form ofVitamin D is Vitamin D2, such as patients receiving VitaminD2 supplementation, results that are subtherapeutic shouldbe confirmed with another method such as LC-MS/MS. Blood 11/20/2024 7:43 AM EDT 11/20/2024 7:43 AM EDT Darcy Seo MD LAB BLOOD ORDERABLES Fin al Result [facility] [address] [place] [phone] * PSA, Total With Reflex to PSA, Free (11/20/2024 7:43 AM EDT) PSA,Total (Free>4and<10) 1.98 0.00 - 4.00 ng/mL [facility] Comment:A Free PSA was not p erformed: The percentage of Free PSA can be used to enhance the differentiation of prostate cancer from benign prostatic disease in subjects whose PSA levels are between 4.0 and 10.0 ng/mL. For subjects whose PSA levels are below 4.0 or above 10.0 ng/mL, the risk of prostate cancer is determined on the basis of the PSA alone. Therefore the % Free PSA is recommended only for those subjects whose PSA levels are between 4.0 and 10.0 ng/mL.PSA methodology: [employer] ChemiluminescentMicroparticle Immunoassay (CMIA) 11/20/2024 7:43 AM EDT 11/20/2024 7:43 AM EDT us Generic External Data Provider LAB BLOOD ORDERAB LES Final Result Performing Organization Address [facility] Co de Phone Number [facility] [address] [place] [address] [phone] * (ABNORMAL) Lipid Panel with Reflex to Direct LDL (11/20/2024 7:43 AM EDT) Triglycerides 80 <150 mg/dL [facility] Comment:Desirable Triglyceri de: less than 150 mg/dLBorderline High Triglyceride 150-199 mg/dLHigh Triglyceride: 200-499 mg/dLVery High Triglyceride: greater than or equal to 5OO mg/dL Cholesterol 133 <200 mg/dL [facility] Comment:Desirable Cholestero l: less than 200 mg/dLBorderline High Cholesterol: 200-239 mg/dLHigh Cholesterol: greater than 239 mg/dL LDL Cholesterol Calculated 80 <100 mg/dL [facility] Comment:Desirable LDL: less than 100 mg/dLNear Optimal/Above Optimal LDL: 110- 129 mg/dLBorderline High LDL: 130-159 mg/dLHigh LDL: 160-189 mg/dLVery High LDL: greater than or equal to 190 mg/dL HDL Cholesterol 37(L) >40 mg/dL [facility] Comment:Desirable HDL: great er than 40 mg/dL Note: This HDL assay may give artificially low results in patients with liver disease. Blood 11/20/2024 7:43 AM EDT 11/20/2024 7:43 AM EDT us Darcy Seo MD LAB BLOOD ORDERABLES Fin al Result Performing Organization Address City/[facility]/ZIP Co de Phone Number [facility] [address] [place] [address] [phone] * CBC (11/20/2024 7:43 AM EDT) Only the most recent of3 resultswithin the time period is included. White Blood Count 5.2 4.8 - 10.8 X10*3/uL [facility] Red Blood Count 4.90 4.60 - 5.80 X10*6/uL [facility] Hemoglobin 14.2 14.0 - 18.0 g/dl [facility] Hematocrit 43.0 42.0 - 52.0 % [facility] Mean Corpuscular Volume 87.8 80.0 - 98.0 fL [facility] Mean Corpuscular Hemoglobin 29.0 27.0 - 33.0 pg [facility] Mean Corpuscular HGB Conc 33.0 31.0 - 36.0 g/dl [facility] Red Cell Distribution Width 13.7 11.0 - 16.0 % [facility] Platelet Count 192 160 - 400 X10*3/uL [facility] Mean Platelet Volume 10.3 9.4 - 12.4 fL [facility] NRBC Pct Auto 0.0 0.0 - 0.2 /100WBC [facility] NRBC Abs Auto 0.000 0.0 - 0.012 X10*3/uL [facility] 11/20/2024 7:43 AM EDT 11/20/2024 7:43 AM EDT us Generic External Data Provider LAB BLOOD ORDERAB LES Final Result [facility] [address] [place] [phone] * (ABNORMAL) Testosterone, Free (Dialysis) And Total, MS (11/20/2024 7:43 AM EDT) Only the most recent of3 resultswithin the time period is included. Testosterone, Total 188(A) 250 - 1100 ng/dL [facility] Comment:Men with clinically significant hypogonadal symptoms and testosterone valuesrepeatedly in the range of the 200-300 ng/dL or less, may benefit fromtestosterone treatment after adequate risk and benefits counseling.For additional information, please refer tohttps://education.[employer]/faq/[email or web address](This link is being provided for informational/educational purposes only.)(Note)This test was developed and its analytical performancecharacteristics have been determined by [employer]. It hasnot been cleared or approved by the FDA. This assay hasbeen validated pursuant to the CLIA regulations and isused for clinical purposes. Testosterone, Free 42.3 35.0 - 155.0 pg/mL [facility] Comment:(Note)This test was developed and its analytical performancecharacteristics have been determined by [employer]. It hasnot been cleared or approved by the FDA. This assay hasbeen validated pursuant to the CLIA regulations and isused for clinical purposes.MDed [id number] [place] [address],[address] [phone] Scott Bill MD, PhDTHIS TEST WAS PERFORMED AT:[place] [address] [place] [phone] BILL MD,PHD 11/20/2024 7:43 AM EDT 11/20/2024 7:43 AM EDT us Generic External Data Provider LAB BLOOD ORDERAB LES Final Result Performing Organization Address City/State/[facility] Co de Phone Number [facility] [address] [place] [phone] * (ABNORMAL) Hemoglobin A1c (11/20/2024 7:43 AM EDT) Hemoglobin A1c 6.3(H) <6.0 % [facility] Comment:Hemoglobin A1C Refer ence Range Adults: 4.8 - 6.0 % Non diabetic: < 6.0 % Goal: < 7.0 %Additional Action Suggested: > 8.0 %Note: Hemoglobin A1c results are invalid for patients with abnormal amounts of HbF. Blood transfusions may impact the HbA1c concentration in the patient sample. Estimated Average Glucose 134 mg/dL [facility] Comment:eAG = Estimated ave rage glucose which is %A1C expressed asaverage glucose, using the formula of the A1T-FctzfobSdfcxzk Glucose study (ADAG), Diabetes Care, Vol.31,#8,2007 Blood Venous blood specimen / Unknown 11/20/2024 7:43 AM EDT 11/20/2024 7:43 AM EDT us Darcy Seo MD LAB BLOOD ORDERABLES Fin al Result Performing Organization Address City/[facility]/ZIP Co de Phone Number [facility] [address] [place] [phone] * (ABNORMAL) Basic Metabolic Panel (11/20/2024 7:43 AM EDT) Sodium 139 135 - 145 mmol/L [facility] Potassium 4.3 3.3 - 5.1 mmol/L [facility] Chloride 109(H) 96 - 108 mmol/L [facility] Carbon Dioxide 25 22 - 29 mmol/L [facility] Anion Gap 9(L) 12 - 20 [facility] Urea Nitrogen (BUN) 16 9 - 16 mg/dL [facility] Creatinine, Serum 1.04 0.5 - 1.4 mg/dL [facility] Estimated Glomerular Filt Rate >60 [facility] Comment:Chronic Kidney Disea se: Estimated GFR < 60 mL/min/1.08s9Idhayj Kidney Disease: Estimated GFR < 15 mL/min/1.73m2 Glucose 107 60 - 115 mg/dL [facility] Calcium 9.5 8.4 - 10.2 mg/dL [facility] Blood Venous blood specimen / Unknown 11/20/2024 7:43 AM EDT 11/20/2024 7:43 AM EDT Darcy Seo MD LAB BLOOD ORDERABLES Fin al Result Performing Organization Address City/[facility]/ZIP Co de Phone Number [facility] [address] [place] [phone] * PSA,Total (09/18/2024 7:24 AM EST) Only the most recent of2 resultswithin the time period is included. Pathologist Christiana [facility] Prostate Specific Antigen 0.38 <0.05 - 4.0 ng/mL [facility] Comment:PSA methodology: Abb vicky Alisanchoty i ChemiluminescentMicroparticle Immunoassay (CMIA) 09/18/2024 7:24 AM EST 09/18/2024 7:24 AM EST Generic External Data Provider LAB BLOOD ORDERAB LES Final Result Performing Organization Address [facility] Co de Phone Number [facility] [address] [place] [address] [phone] Hepatitis Panel, General (11/01/2023 7:40 AM EDT) Pathologist [facility] Hepatitis A IgM Nonreactive Nonreactive [facility] Comment:IgM antibodies to CARL V not detected; does not exclude earlyacute or recovered HAV infection. ~Hepatitis B Surface Antibody REACTIVE Nonreactive [facility] Comment:REACTIVE: > 11.99 mI U/mL Hepatitis B Core Antibody Nonreactive Nonreactive [facility] Hepatitis C Antibody Nonreactive Nonreactive [facility] Comment:Antibodies to HCV no t detected; does not exclude early acuteHCV infection. Hepatitis B Surface Ag Negative Negative [facility] Blood 11/01/2023 7:40 AM EDT 11/01/2023 7:40 AM EDT Darcy Seo MD LAB BLOOD ORDERABLES Fin al Result Performing Organization Address [facility] Co de Phone Number [facility] [address] [place] [address] [phone] HIV-1/2 Antigen and Antibodies, Fourth Generation, with Reflexes (11/01/2023 7:40 AM EDT) Pathologist [facility] HIV AB/AG Nonreactive Nonreactive [facility] Comment:HIV-1 p24 Ag and/or HIV-1/HIV-2 Ab not detected.A test result that is nonreactive does not exclude thepossibility of exposure to or infection with HIV-1 and/orHIV-2. Nonreactive results in this assay for individualswith prior exposure to HIV-1 and/or HIV-2 may be due toantigen and antibody levels that are below the limit ofdetection of this assay.The [employer] HIV Ag/Ab Combo assay result andsupplemental assay results should be interpreted inconjunction with the patient's clinical presentation,history and other laboratory results. If the results areinconsistent with clinical evidence, additional testing issuggested to confirm the result. Blood Venous blood specimen / Unknown 11/01/2023 7:40 AM EDT 11/01/2023 7:40 AM EDT Darcy Seo MD LAB BLOOD ORDERABLES Fin al Result [facility] [address] [place] [address] [phone] * (ABNORMAL) Colonoscopy (06/07/2021) [facility] Colonoscopy Abnormal( A) Normal Comment:Repeat 7 years Historical Provider HEALTH MAINTENANCE Edited Result - Final from Last 3 Months or Most Recently Relevant to Health Maintenance Insurance # [id number] [place] [address] [facility] PPO # [id number], [place] [id number] [facility] Address: [address] [place] [address] Advance Directives Documents on File Type Date Recorded Patient Rosin Barrel Filler Expl anation HealthCare Proxy 11/20/2024 8:58 PM Care Teams International Accounting Manager Relationship Specialty Start Date End Date Darcy Seo MD [address] [place] [phone] PCP - General Family Medicine 05/01/16
--- OUTSIDE RECORDS SUMMARY | 2024-12-02 08:35 | XMS_ITS | Encounter Summary ---
Author Organization [facility] Address [address] [place] [address] Care Team Providers Care Memory Care Director Name Role Phone Darcy Seo MD Primary Care Provider + Reason for Visit * Reason Comments Med Refill Encounter Details Date Type Department Care Team (Late Contact Info) Description 04/16/2023 Refill [facility] MEDICINE [address] [place], [place] [phone] Darcy Seo MD [address] [place] [phone] Mixed hyperlipidemia Social History Tobacco Use Types [...] Description 12/27/2024 2:00 PM EDT Office Visit [facility] ADULT DENTAL [address] [place] [address] Brandee Logan [address] [place] [address] documented as of this encounter Visit Diagnoses Diagnosis Mixed hyperlipidemia documented in this encounter Additional Health Concerns Assessment Noted Time PHQ-9 Depression Total Score: 0 10/29/19 23 9:42 AM EDT documented as of this encounter Care Teams Memory Care Director Relationship Specialty Start Date End Date Darcy Seo MD [address] [place] [address] PCP - General Family Medicine 05/01/16 documented as of this encounter
--- OUTSIDE RECORDS SUMMARY | 2024-12-02 08:35 | XMS_ITS | Encounter Summary ---
Author Organization [facility] Address [address] [facility] [address] [place] [address] Care Team Providers Care Dance Master Name Role Phone Darcy Seo MD Primary Care Provider + Encounter Details Date Type Department Care Team (Late Contact Info) Description 01/10/2023 Abstract [facility] MEDICINE [address] [place] [address] Darcy Seo MD [address] [place], [place] [phone] Social History Tobacco Use Types Packs/Day Years [...] Description 12/27/2024 2:00 PM EDT Office Visit [facility] ADULT DENTAL [address] [place] [address] Brandee Logan [address] [place] [address] documented as of this encounter Visit Diagnoses Not on filedocumented in this encounter Additional Health Concerns Assessment Noted Time PHQ-9 Depression Total Score: 0 10/29/19 23 9:42 AM EDT documented as of this encounter Care Teams Dance Master Relationship Specialty Start Date End Date Darcy Seo MD [address] [place] [address] PCP - General Family Medicine 05/01/16 documented as of this encounter
--- OUTSIDE RECORDS SUMMARY | 2024-12-02 08:35 | XMS_ITS | Encounter Summary ---
Author Organization [facility] Address [address] [facility] [address] [place] [address] Care Team Providers Care Muffler Hand Name Role Phone Darcy Seo MD Primary Care Provider + Reason for Visit * Reason Onset Date Comments Med Refill 06/14/2023 Encounter Details Date Type Department Care Team ([facility] st Contact Info) Description 06/14/2023 Refill [facility] MEDICINE [address] [place], [place] [phone] Darcy Seo MD [address] [place], [place] [phone] Mixed hyperlipidemia Social History Tobacco Use Types [...] Description 12/27/2024 2:00 PM EDT Office Visit [facility] ADULT DENTAL [address] [place] [address] Desmond, Brandee [address] [place] [address] documented as of this encounter Visit Diagnoses Diagnosis Mixed hyperlipidemia documented in this encounter Additional Health Concerns Assessment Noted Time PHQ-9 Depression Total Score: 0 10/29/19 9:42 AM EDT documented as of this encounter Care Teams Muffler Hand Relationship Specialty Start Date End Date Darcy Seo MD [address] [place] [address] PCP - General Family Medicine 05/01/16 documented as of this encounter
--- OUTSIDE RECORDS SUMMARY | 2024-12-02 08:35 | XMS_ITS | Clinical Summary ---
Author Organization [facility] Address [address] [place] [address] Phone Care Team Providers Care Basket Braider Name Role Phone Darcy Seo MD Primary Care Provider + [phone] Allergies Active Allergy Reactions Criticality Noted Date Comments Cortisone 10/16/2024 Penicillins 10/16/2024 Medications aspirin 81 mg EC tablet Take 1 tablet (81 mg total) by mouth 1 (one) time each day. 11/25/2023 Active atorvastatin (LIPITOR) 20 mg tablet Take 1 tablet (20 mg total) by mouth daily. 06/15/2024 Active lisinopriL (PRINIVIL,ZESTRI L) 5 mg tablet Take 1 tablet (5 mg total) by mouth daily. 01/12/2024 Active oxyBUTYnin XL (DITROPAN-XL) 5 mg 24 hr tablet Take 1 tablet (5 mg total) by mouth 1 (one) time each day. 10/05/2024 Active tadalafiL (CIALIS) 5 mg tablet Take 1 tablet (5 mg total) by mouth 1 (one) time each day. Active Active Problems No known active problems Resolved Problems Problem Noted Date Diagnosed Date Resolved Date Ileus (CMS/HCC V24, CMS/HCC V28) 10/16/2024 10/19/2024 Encounters Date Type Department Care Team Description 10/16/2024 5:58 AM EDT - 10/19/2024 12:26 PM EDT Hospital Encounter [facility] [address] [place] [address] Isaias Saavedra DO McPartland, Kenneth, MD Generalized abdominal pain (Primary Dx); Nausea and vomiting, unspecified vomiting type Discharge Disposition: Home or Self Care from Last 3 Months Surgical History Surgery Date Site/Laterality Comments CHOLECYSTECTOMY KNEE SURGERY Bilateral Medical History Medical History Date Comments Hypertension Sleep apnea Low testosterone Social History Tobacco Use Types Packs/Day Years Used Date Smoking Tobacco: Never Smokeless Tobacco: Never Tobacco Cessation:Counseling Given: Not Answered Alcohol Use Standard Drinks/Week Comments Yes 2 (1 standard drink = 0.6 oz pur e alcohol) Interpersonal Safety Answer Date Record ed Physical Abuse 10/16/2024 Verbal Abuse 10/16/2024 Sex and Gender Information Value Date Recorded Sex Assigned at Male 10/16/2024 8:03 AM EDT Legal Sex Male 11:44 AM EST Gender Identity Male 10/16/2024 8:03 AM EDT Sexual Orientation Choose not to disclose 2024 8:03 AM EDT Obstetrics History Last Filed Vital Signs Vital Sign Reading Time Taken Comments Blood Pressure 151/86 10/19/2024 8:03 AM EDT Pulse 85 10/19/2024 8:03 AM EDT Temperature 36.1 ??C (96.9 ??F) 10/19/2024 8:03 AM ED T Respiratory Rate 17 10/19/2024 8:03 AM EDT Oxygen Saturation 98% 10/19/2024 8:03 AM EDT Inhaled Oxygen Concentration - - Weight 126 kg (278 lb 12.8 oz) 10/16/2024 8:26 P M EDT Height 193 cm (6' 4 ) 10/16/2024 1:06 AM EDT Body Mass Index 33.94 10/16/2024 1:06 AM EDT Plan of Treatment Health Maintenance Due Date Last Done Comments Hepatitis B Vaccines (1 of 3 - 19+ 3-dose series) 11/30/1987 Pneumococcal Vaccine: 50+ Years (1 of 1 - PCV) 2018 COVID-19 Vaccine ( - 2023- season) 2024 07/10/2023, 08/18/2021, 12/01/2020, Additional history exists Cholesterol Screening (Lipid Panel) 10/16/2024 Colorectal Cancer Screening: Colonoscopy 10/16/2024 Hepatitis C Screening 10/16/2024 Social Influencers of Health Screening 10/16/2024 Depression Screening 10/26/2024 10/27/2023 Influenza Vaccine (Season Ended) 2025 05/20/2023, 04/11/2022, 05/11/2020, Additional history exists Hypertension/CHF/CAD Annual BMP Blood Test 10/19/2025 10/19/2024, 10/18/2024, 10/17/2024, Additional history exists DTaP,Tdap,and Td Vaccines (3 - Td or Tdap) 05/11/2030 05/11/2020, 08/03/2009 HIV Screening Completed 11/01/2023 Zoster Vaccines Completed 12/16/2023, [...] on patient's age to complete this topic MMR Vaccines Aged Out No longer eligi ble based on patient's age to complete this topic Meningococcal ACWY Vaccine Aged Out N o longer eligible based on patient's age to complete this topic Meningococcal B Vaccine Aged Out No l onger eligible based on patient's age to complete this topic Pneumococcal Vaccine: Pediatrics (0 to 5 Years) and At-Risk Patients (6 to 64 Years) Aged Out No longer eligible based on patient's age to complete this topic RSV Immunization Patients Under 20 months Aged Out No longer eligible based on patient's age to complete this topic Varicella Vaccines Aged Out No longer eligible based on patient's age to complete this topic Procedures Procedure Name Priority Date/Time Associated Diagnosis Comments PHOSPHORUS Routine 10/19/2024 6:01 AM EDT MAGNESIUM Routine 10/19/2024 6:01 AM EDT BASIC METABOLIC PANEL Routine 10/19/2024 6:01 AM EDT CBC WITH AUTO DIFFERENTIAL Routine 10/19/2024 6:00 AM EDT CBC AND DIFFERENTIAL Routine 10/19/2024 6:00 AM EDT CBC WITH AUTO DIFFERENTIAL Routine 10/18/2024 6:21 AM EDT CBC AND DIFFERENTIAL Routine 10/18/2024 6:21 AM EDT BASIC METABOLIC PANEL Routine 10/18/2024 6:21 AM EDT MAGNESIUM Routine 10/18/2024 6:21 AM EDT PHOSPHORUS Routine 10/18/2024 6:21 AM EDT CPAP NIV Routine 10/17/2024 10:00 PM EDT XR SMALL BOWEL SERIES STAT 10/17/2024 8:07 PM EDT CBC WITH AUTO DIFFERENTIAL Routine 10/17/2024 6:01 AM EDT HEPATIC FUNCTION PANEL Routine 6:01 AM EDT BASIC METABOLIC PANEL Routine 10/17/2024 6:01 AM EDT CBC AND DIFFERENTIAL Routine 10/17/2024 6:01 AM EDT CPAP NIV Routine 10/16/2024 10:01 PM EDT ECG 12-LEAD STAT 10/16/2024 8:08 PM EDT CBC WITH AUTO DIFFERENTIAL STAT 10/16/2024 7:24 PM EDT LACTATE STAT 10/16/2024 7:24 PM EDT COMPREHENSIVE METABOLIC PANEL STAT 10/16/2024 7:24 PM EDT CBC AND DIFFERENTIAL STAT 10/16/2024 7:24 PM EDT XR CHEST 1 VIEW STAT 10/16/2024 6:59 PM EDT RESPIRATORY VIRUS PANEL MOLECULAR STUDY Routine 10/16/2024 6:42 PM EDT XR ABDOMEN 1 VIEW STAT 10/16/2024 12: 59 PM EDT CPAP NIV Routine 10/16/2024 12:[address] ABDOMEN PELVIS W CONTRAST STAT 10/16/2024 9:25 AM EDT CBC WITH AUTO DIFFERENTIAL STAT 10/16/2024 1:38 AM EDT LIPASE STAT 10/16/2024 1:38 AM EDT MAGNESIUM STAT 10/16/2024 1:38 AM EDT COMPREHENSIVE METABOLIC PANEL STAT 10/16/2024 1:38 AM EDT CBC AND DIFFERENTIAL STAT 10/16/2024 1:38 AM EDT from Last 3 Months Results * Phosphorus (10/19/2024 6:01 AM EDT) Only the most recent of2 resultswithin the time period is included. [facility] Phosphorus 3.7 2.5 - 4.5 mg/dL LAB CHEMISTRY METHOD 10/19/2024 7:40 AM EDT [facility] Blood Venous blood specimen / Unknown Venipuncture / Unknown 10/19/2024 6:01 AM EDT 10/19/2024 7:00 AM EDT us Yenny FLETCHER LAB BLOOD ORDERABLES Final Re sult [facility] [address] [place] [address], * Magnesium (10/19/2024 6:01 AM EDT) Only the most recent of3 resultswithin the time period is included. [facility] Magnesium 2.3 1.9 - 2.6 mg/dL LAB CHEMISTRY METHOD 10/19/2024 7:40 AM [facility] Blood Venous blood specimen / Unknown Venipuncture / Unknown 10/19/2024 6:01 AM EDT 10/19/2024 7:00 AM EDT us Yenny FLETCHER LAB BLOOD ORDERABLES Final Re sult [facility] [address] [place] [address], [place] [phone] * (ABNORMAL) Basic metabolic panel (10/19/2024 6:01 AM EDT) Only the most recent of3 resultswithin the time period is included. Pathologist [facility] [place] Sodium 139 133 - 145 mmol/L LAB CHEMISTRY METHOD 10/19/2024 7:40 AM [facility] Potassium 4.1 3.5 - 5.5 mmol/L LAB CHEMISTRY METHOD 10/19/2024 7:40 AM [facility] Chloride 105 96 - 110 mmol/L LAB CHEMISTRY METHOD 10/19/2024 7:40 AM [facility] CO2 29 21 - 32 mmol/L LAB CHEMISTRY METHOD 10/19/2024 7:40 AM [facility] Anion Gap 5 3 - 11 LAB CHEMISTRY METHOD 10/19/2024 7:40 AM [facility] Glucose 103(H) 70 - 100 mg/dL LAB CHEMISTRY METHOD 10/19/2024 7:40 AM [facility] BUN 12 5 - 25 mg/dL LAB CHEMISTRY METHOD 10/19/2024 7:40 AM [facility] Creatinine 1.03 0.70 - 1.30 mg/dL LAB CHEMISTRY METHOD 10/19/2024 7:40 AM [facility] eGFR 86 >=60 mL/min/1. 73m2 LAB CHEMISTRY METHOD 10/19/2024 7:40 AM EDT [facility] Comment:Calculation based on the??Chronic Kidney Disease Epidemiology Collaboration (CKD-EPI) equation refit??without adjustment for race. BUN/Creatinine Ratio 11.7 LAB CHEMISTRY METHOD 10/19/2024 7:40 AM EDT [facility] Calcium 8.9 8.5 - 10.5 mg/dL LAB CHEMISTRY METHOD 10/19/2024 7:40 AM EDT [facility] Blood Venous blood specimen / Unknown Venipuncture / Unknown 10/19/2024 6:01 AM EDT 10/19/2024 7:00 AM EDT us Yenny FLETCHER LAB BLOOD ORDERABLES Final Re sult [facility] [address] [place] [address], [place] [phone] * (ABNORMAL) CBC auto differential (10/19/2024 6:00 AM EDT) Only the most recent of5 resultswithin the time period is included. WBC 6.5 4.8 - 10.8 K/mcL LAB HEMETOLOGY METHOD 10/19/2024 7:32 AM EDT [facility] RBC 4.60 4.50 - 5.50 M/mcL LAB HEMETOLOGY METHOD 10/19/2024 7:32 AM EDT [facility] Hemoglobin 13.5 13.5 - 17.5 g/dL LAB HEMETOLOGY METHOD 10/19/2024 7:32 AM EDT [facility] Hematocrit 42.6 42.0 - 54.0 % LAB HEMETOLOGY METHOD 10/19/2024 7:32 AM EDT [facility] MCV 92.0 79.0 - 98.0 FL LAB HEMETOLOGY METHOD 10/19/2024 7:32 AM EDT [facility] MCH 29.2 27.0 - 32.0 pcg LAB HEMETOLOGY METHOD 10/19/2024 7:32 AM [facility] MCHC 31.7(L) 32.0 - 37.0 g/dL LAB HEMETOLOGY METHOD 10/19/2024 7:32 AM [facility] RDW 12.9 11.0 - 15.0 % LAB HEMETOLOGY METHOD 10/19/2024 7:32 AM [facility] Platelets 199 130 - 400 K/mcL LAB HEMETOLOGY METHOD 10/19/2024 7:32 AM [facility] MPV 11.2(H) 7.0 - 11.0 FL LAB HEMETOLOGY METHOD 10/19/2024 7:32 AM [facility] NRBC 0.0 <1.0 % LAB HEMETOLOGY METHOD 10/19/2024 7:32 AM [facility] NRBC Absolute 0.00 <0.10 K/mcL LAB HEMETOLOGY METHOD 10/19/2024 7:32 AM [facility] Neutrophils Relative 68.6 % LAB HEMETOLOGY METHOD 10/19/2024 7:32 AM [facility] Lymphocytes Relative 20.5 % LAB HEMETOLOGY METHOD 10/19/2024 7:32 AM [facility] Monocytes Relative 6.8 % LAB HEMETOLOGY METHOD 10/19/2024 7:32 AM [facility] Eosinophils Relative 3.4 % LAB HEMETOLOGY METHOD 10/19/2024 7:32 AM [facility] Basophils Relative 0.5 % LAB HEMETOLOGY METHOD 10/19/2024 7:32 AM [facility] Immature Granulocytes Relative 0.2 % LAB HEMETOLOGY METHOD 10/19/2024 7:32 AM EDT [facility] Neutrophils Absolute 4.47 1.50 - 7.00 K/mcL LAB HEMETOLOGY METHOD 10/19/2024 7:32 AM EDT [facility] Lymphocytes Absolute 1.33 1.00 - 5.00 K/mcL LAB HEMETOLOGY METHOD 10/19/2024 7:32 AM EDT [facility] Monocytes Absolute 0.44 0.20 - 1.00 K/mcL LAB HEMETOLOGY METHOD 10/19/2024 7:32 AM EDT [facility] Eosinophils Absolute 0.22 0.00 - 0.50 K/mcL LAB HEMETOLOGY METHOD 10/19/2024 7:32 AM EDT [facility] Basophils Absolute 0.03 0.00 - 0.20 K/mcL LAB HEMETOLOGY METHOD 10/19/2024 7:32 AM EDT [facility] Immature Granulocytes Absolute 0.01 0.00 - 0.03 K/mcL LAB HEMETOLOGY METHOD 10/19/2024 7:32 AM EDT [facility] Blood Venous blood specimen / Unknown Venipuncture / Unknown 10/19/2024 6:00 AM EDT 10/19/2024 7:00 AM EDT us Yenny FLETCHER LAB BLOOD ORDERABLES Final Re sult [facility] [address] [place] [address], * XR Small Bowel Series (10/17/2024 8:07 PM EDT) Anatomical Region Laterality Modality Head and Neck Radiographic Marianela ging 10/18/2024 9:21 AM EDT Impressions 10/18/2024 9:24 AM EDT Impression: Gastrografin challenge reveals no evidence of small bowel obstruction. Cuco FLETCHER ([id number]) -------- FINAL REPORT -------- Dictated By: Jo Ann Forde Dictated Date: 10/18/2024 09:21 ET Assigned Physician: Jo Ann Forde Reviewed and Electronically Signed By: Jo Ann Forde Signed Date: 10/18/2024 09:24 ET Workstation ID: [id number] Transcribed By: Self Edit Transcribed Date: 10/18/2024 09:21 ET Narrative 10/18/2024 9:24 AM EDT History: Gastrografin challenge. Abnormal abdominal CT showing dilated small bowel loops with gradual transition to normal caliber in the right mid abdomen. Ileus versus low-grade obstruction. Comparison: Abdominal CT 10/16/24 Findings: A series of abdominal radiographs were obtained over the course of 8 hours following the administration of 90 cc Gastrografin with 50 cc water via NG tube. The initial image shows a well-positioned nasogastric tube and cholecystectomy clips. Abundant air is seen within the colon. No small bowel dilatation is identified. Opacified stomach and duodenum appear unremarkable on the immediate postcontrast image. At 4 hours, opaque contrast is seen throughout the colon and within the rectum, with no significant residual contrast within the stomach. Faintly opacified small bowel loops are incompletely characterized. Similar findings are noted on the 8 hour study. Clinical notes indicate patient had a bowel movement at this time. The exam was terminated by the referring provider. Procedure Note Jo Ann Forde MD - 10/18/2024 History: Gastrografin challenge. Abnormal abdominal CT showing dilatedsmall bowel loops with gradual transition to normal caliber in the rightmid abdomen. Ileus versus low-grade obstruction. Comparison: Abdominal CT 10/16/24 Findings: A series of abdominal radiographs were obtained over the course of 8 hoursfollowing the administration of 90 cc Gastrografin with 50 cc water via NGtube. The initial image shows a well-positioned nasogastric tube andcholecystectomy clips. Abundant air is seen within the colon. No smallbowel dilatation is identified. Opacified stomach and duodenum appear unremarkable on the immediatepostcontrast image. At 4 hours, opaque contrast is seen throughout thecolon and within the rectum, with no significant residual contrast withinthe stomach. Faintly opacified small bowel loops are incompletelycharacterized. Similar findings are noted on the 8 hour study. Clinical notes indicatepatient had a bowel movement at this time. The exam was terminated by thereferring provider. IMPRESSION: Impression: Gastrografin challenge reveals no evidence of small bowel obstruction. Cuco FLETCHER ([id number]) -------- FINAL REPORT -------- Dictated By: Jo Ann Forde Dictated Date: 10/18/2024 09:21 ET Assigned Physician: Jo Ann Forde Reviewed and Electronically Signed By: Jo Ann Forde Signed Date: 10/18/2024 09:24 ET Workstation ID: [id number] Transcribed By: Self Edit Transcribed Date: 10/18/2024 09:21 ET Mayra FLETCHER IMG FLUOROSCOPY PROCEDURES Jami l Result * Hepatic function panel (10/17/2024 6:01 AM EDT) Total Protein 7.0 6.0 - 8.0 g/dL LAB CHEMISTRY METHOD 10/17/2024 7:16 AM [facility] Albumin 3.6 3.2 - 5.0 g/dL LAB CHEMISTRY METHOD 10/17/2024 7:16 AM [facility] Total Bilirubin 1.3 0.0 - 1.4 mg/dL LAB CHEMISTRY METHOD 10/17/2024 7:16 AM [facility] Bilirubin, Direct 0.3 0.0 - 0.3 mg/dL LAB CHEMISTRY METHOD 10/17/2024 7:16 AM [facility] Bilirubin, Indirect 1.0 0.0 - 1.1 mg/dL LAB CHEMISTRY METHOD 10/17/2024 7:16 AM [facility] ALT (SGPT) 58 10 - 60 unit/L LAB CHEMISTRY METHOD 10/17/2024 7:16 AM [facility] AST (SGOT) 35 10 - 42 unit/L LAB CHEMISTRY METHOD 10/17/2024 7:16 AM [facility] Alkaline Phosphatase 113 42 - 121 unit/L LAB CHEMISTRY METHOD 10/17/2024 7:16 AM EDT [facility] Blood Venous blood specimen / Unknown Venipuncture / Unknown 10/17/2024 6:01 AM EDT 10/17/2024 6:36 AM EDT Mayra FLETCHER LAB BLOOD ORDERABLES Final Resu lt Performing Organization Address City/[facility]/ZIP Co de Phone Number [facility]) [facility] [address] [place] [address], [place] [phone] * ECG 12 lead (10/16/2024 8:08 PM EDT) Ventricular Rate ECG 127 BPM GEMUSE Atrial Rate 127 BPM GEMUSE P-R Interval 144 ms GEMUSE QRS Duration 100 ms GEMUSE Q-T Interval 326 ms GEMUSE QTc 473 ms GEMUSE P Wave [place] 36 degrees GEMUSE R [place] 32 degrees GEMUSE T [place] 10 degrees GEMUSE ECG Interpretation Sinus tachycardia Inferior infarct , age undetermined Abnormal ECG No previous ECGs available Confirmed by JEANE UGARTE ([id number]) on 10/17/2024 4:45:03 PM GEMUSE 10/16/2024 8:08 PM EDT 10/17/2024 4:45 PM EDT Sergio FLETCHER ECG ORDERABLES Final Result Performing Organization Address [facility] Co de Phone Number GEMUSE * Lactate (10/16/2024 7:24 PM EDT) Lactate 1.2 0.4 - 2.0 mmol/L LAB CHEMISTRY METHOD 10/16/2024 8:17 PM EDT [facility] Blood Venous blood specimen / Unknown Venipuncture / Unknown 10/16/2024 7:24 PM EDT 10/16/2024 7:47 PM EDT CHANCE Dowd LAB BLOOD ORDERABLES Final Result [facility] [address] [place] [address], * (ABNORMAL) Comprehensive metabolic panel (10/16/2024 7:24 PM EDT) Only the most recent of2 resultswithin the time period is included. Sodium 139 133 - 145 mmol/L LAB CHEMISTRY METHOD 10/16/2024 8:19 PM [facility] Potassium 4.1 3.5 - 5.5 mmol/L LAB CHEMISTRY METHOD 10/16/2024 8:19 PM [facility] Chloride 105 96 - 110 mmol/L LAB CHEMISTRY METHOD 10/16/2024 8:19 PM [facility] CO2 29 21 - 32 mmol/L LAB CHEMISTRY METHOD [facility]24 [facility] Anion Gap 5 3 - 11 LAB CHEMISTRY METHOD 10/16/2024 8:19 PM [facility] Glucose 147(H) 70 - 100 mg/dL LAB CHEMISTRY METHOD 10/16/2024 8:19 PM [facility] BUN 27(H) 5 - 25 mg/dL LAB CHEMISTRY METHOD 10/16/2024 8:19 PM [facility] Creatinine 1.20 0.70 - 1.30 mg/dL LAB CHEMISTRY METHOD 10/16/2024 8:19 PM [facility] eGFR 71 >=60 mL/min/1. 73m2 LAB CHEMISTRY METHOD 10/16/2024 8:19 PM [facility] Comment:Calculation based on the??Chronic Kidney Disease Epidemiology Collaboration (CKD-EPI) equation refit??without adjustment for race. BUN/Creatinine Ratio 22.5 LAB CHEMISTRY METHOD 10/16/2024 8:19 PM [facility] Calcium 9.3 8.5 - 10.5 mg/dL LAB CHEMISTRY METHOD 10/16/2024 8:19 PM EDT [facility] AST (SGOT) 27 10 - 42 unit/L LAB CHEMISTRY METHOD 10/16/2024 8:19 PM EDT [facility] ALT (SGPT) 56 10 - 60 unit/L LAB CHEMISTRY METHOD 10/16/2024 8:19 PM EDT [facility] Alkaline Phosphatase 127(H) 42 - 121 unit/L LAB CHEMISTRY METHOD 10/16/2024 8:19 PM EDT [facility] Total Protein 7.4 6.0 - 8.0 g/dL LAB CHEMISTRY METHOD 10/16/2024 8:19 PM EDT [facility] Albumin 4.1 3.2 - 5.0 g/dL LAB CHEMISTRY METHOD 10/16/2024 8:19 PM EDT [facility] Total Bilirubin 1.2 0.0 - 1.4 mg/dL LAB CHEMISTRY METHOD 10/16/2024 8:19 PM EDT [facility] Blood Venous blood specimen / Unknown Venipuncture / Unknown 10/16/2024 7:24 PM EDT 10/16/2024 7:47 PM EDT us CHANCE Dowd LAB BLOOD ORDERABLES Final Result [facility] [address] [place] [address], * XR Chest 1 View (10/16/2024 6:59 PM EDT) Anatomical Region Laterality Modality Body Radiographic Marianela ging 10/17/2024 9:40 AM EDT Impressions 10/17/2024 9:43 AM EDT Impression: 1. NG tube well positioned. 2. Widening of the right paratracheal soft tissue stripe, possibly related to the poor inspiration. Repeat PA and lateral views recommended when the patient's clinical status improves. 3. Probable hypoventilatory changes at the lung bases. Telerad PA ([id number]) -------- FINAL REPORT -------- Dictated By: Jo Ann Forde Dictated Date: 10/17/2024 09:40 ET Assigned Physician: Jo Ann Forde Reviewed and Electronically Signed By: Jo Ann Forde Signed Date: 10/17/2024 09:43 ET Workstation ID: [id number] Transcribed By: Self Edit Transcribed Date: 10/17/2024 09:40 ET Narrative 10/17/2024 9:43 AM EDT History: Tachycardia. Desaturation. Comparison: No comparison imaging at this institution. Findings: Portable AP upright chest at 50 p.m. This is a poor inspiration. The cardiac silhouette appears grossly normal in size. Fullness of the azygos vein node region is noted. Mild patchy opacity at the lung bases may reflect hypoventilatory change. No sizable pleural fluid collection is seen. A nasogastric tube traverses the esophagus, extending at least as far as stomach, with the tip not identified. Procedure Note Jo Ann Forde MD - 10/17/2024 History: Tachycardia. Desaturation. Comparison: No comparison imaging at this institution. Findings: Portable AP upright chest at 50 p.m. This is a poor inspiration. Thecardiac silhouette appears grossly normal in size. Fullness of the azygosvein node region is noted. Mild patchy opacity at the lung bases mayreflect hypoventilatory change. No sizable pleural fluid collection isseen. A nasogastric tube traverses the esophagus, extending at least as far asstomach, with the tip not identified. IMPRESSION: Impression: 1. NG tube well positioned. 2. Widening of the right paratracheal soft tissue stripe, possibly relatedto the poor inspiration. Repeat PA and lateral views recommended when thepatient's clinical status improves. 3. Probable hypoventilatory changes at the lung bases. Telerad PA ([id number]) -------- FINAL REPORT -------- Dictated By: Jo Ann Forde Dictated Date: 10/17/2024 09:40 ET Assigned Physician: Jo Ann Forde Reviewed and Electronically Signed By: Jo Ann Forde Signed Date: 10/17/2024 09:43 ET Workstation ID: [id number] Transcribed By: Self Edit Transcribed Date: 10/17/2024 09:40 ET us CHANCE Dowd IMG XR PROCEDURES Final Res ult * Respiratory virus panel molecular study (10/16/2024 6:42 PM EDT) Pathologist [facility] [place] Adenovirus Detection by PCR Not Detected Not Detected LAB MICROBIOLOGY METHOD 10/16/2024 8:19 PM EDT [facility] Influenza A PCR Not Detected Not Detected LAB MICROBIOLOGY METHOD 10/16/2024 8:19 PM EDT [facility] Influenza B PCR Not Detected Not Detected LAB MICROBIOLOGY METHOD 10/16/2024 8:19 PM EDT [facility] Coronavirus 229E Not Detected Not Detected LAB MICROBIOLOGY METHOD 10/16/2024 8:19 PM EDT [facility] Coronavirus HKU1 Not Detected Not Detected LAB MICROBIOLOGY METHOD 10/16/2024 8:19 PM EDT [facility] Coronavirus OC43 Not Detected Not Detected LAB MICROBIOLOGY METHOD 10/16/2024 8:19 PM EDT [facility] Coronavirus NL63 Not Detected Not Detected LAB MICROBIOLOGY METHOD 10/16/2024 8:19 PM EDT [facility] Parainfluenza Virus 1 Not Detected Not Detected LAB MICROBIOLOGY METHOD 10/16/2024 8:19 PM EDT [facility] Parainfluenza Virus 2 Not Detected Not Detected LAB MICROBIOLOGY METHOD 10/16/2024 8:19 PM EDT [facility] Parainfluenza Virus 3 Not Detected Not Detected LAB MICROBIOLOGY METHOD 10/16/2024 8:19 PM EDT [facility] Parainfluenza Virus 4 Not Detected Not Detected LAB MICROBIOLOGY METHOD 10/16/2024 8:19 PM EDT [facility] RSV PCR Not Detected Not Detected LAB MICROBIOLOGY METHOD 10/16/2024 8:19 PM EDT [facility] Human Metapneumovirus A and B Not Detected Not Detected LAB MICROBIOLOGY METHOD 10/16/2024 8:19 PM EDT [facility] Rhinovirus/Entero virus Not Detected Not Detected LAB MICROBIOLOGY METHOD 10/16/2024 8:19 PM EDT [facility] Bordetella pertussis Not Detected Not Detected LAB MICROBIOLOGY METHOD 10/16/2024 8:19 PM EDT [facility] Bordetella parapertussis Not Detected Not Detected LAB MICROBIOLOGY METHOD 10/16/2024 8:19 PM EDT [facility] Mycoplasma pneumo by PCR Not Detected Not Detected LAB MICROBIOLOGY METHOD 10/16/2024 8:19 PM EDT [facility] Chlamydia pneumoniae Not Detected Not Detected LAB MICROBIOLOGY METHOD 10/16/2024 8:19 PM EDT [facility] SARS COV-2 Not Detected Not Detected LAB MICROBIOLOGY METHOD 10/16/2024 8:19 PM EDT [facility] Swab Both anterior nares / Unknown Non-blood Collection / Unknown 10/16/2024 6:42 PM EDT 10/16/2024 7:[address] [facility] - 10/16/2024 8:19 PM EDT Testing was performed using the Nabto Respiratory Pathogen PCR Assay. All results must be correlated with the clinical findings. Results should not be used as the sole basis for diagnosis. False Negative results may occur from the presence of sequence variants in the region targeted by the assay or the presence of inhibitors. Results may be affected by concurrent antiviral/antimicrobial therapy or levels of organisms that are below the limit of detection. us [facility] LAB MICROBIOLOGY - GENERAL ORDERABLES Final Result [facility] [address] [place] [address], * XR Abdomen 1 View (10/16/2024 12:59 PM EDT) Anatomical Region Laterality Modality Body Radiographic Marianela ging 10/16/2024 1:07 PM EDT Impressions 10/16/2024 1:08 PM EDT Impression: NG tube well positioned within the stomach. [facility] CHANCE ([id number]) -------- FINAL REPORT -------- Dictated By: Jo Ann Forde Dictated Date: 10/16/2024 13:07 ET Assigned Physician: Jo Ann Forde Reviewed and Electronically Signed By: Jo Ann Forde Signed Date: 10/16/2024 13:08 ET Workstation ID: [id number] Transcribed By: Self Edit Transcribed Date: 10/16/2024 13:07 ET Narrative 10/16/2024 1:08 PM EDT History: Abdominal pain, acute. NG tube placement. Comparison: Abdominal CT from earlier today. Findings: Portable AP supine abdomen from 12:55 PM. A nasogastric tube traverses the esophagus and terminates in the stomach. The stomach remains distended with air and fluid. Cholecystectomy clips are noted. Opaque contrast material is seen within the urinary tract, in keeping with the earlier contrast-enhanced CT. Procedure Note Jo Ann Forde MD - 10/16/2024 History: Abdominal pain, acute. NG tube placement. Comparison: Abdominal CT from earlier today. Findings: Portable AP supine abdomen from 12:55 PM. A nasogastric tube traverses theesophagus and terminates in the stomach. The stomach remains distendedwith air and fluid. Cholecystectomy clips are noted. Opaque contrastmaterial is seen within the urinary tract, in keeping with the earliercontrast-enhanced CT. IMPRESSION: Impression: NG tube well positioned within the stomach. [facility] ([id number]) -------- FINAL REPORT -------- Dictated By: Jo Ann Forde Dictated Date: 10/16/2024 13:07 ET Assigned Physician: Jo Ann Forde Reviewed and Electronically Signed By: Jo Ann Forde Signed Date: 10/16/2024 13:08 ET Workstation ID: [id number] Transcribed By: Self Edit Transcribed Date: 10/16/2024 13:07 ET us Isaias Saavedra DO IMG XR PROCEDURES Final Result * CT Abdomen Pelvis w Contrast (10/16/2024 9:25 AM EDT) Anatomical Region Laterality Modality Body Computed Tomogra phy 10/16/2024 9:36 AM EDT Impressions 10/16/2024 9:46 AM EDT Impression: 1. Fluid distended stomach, duodenum and proximal small bowel with gradual decrease in small bowel caliber. This may represent a localized ileus pattern secondary to focal enteritis (mild small bowel wall thickening and hazy increased attenuation in the mesenteric fat) versus low-grade small bowel obstruction. 2. [place] [employer] [place] ([id number]) -------- FINAL REPORT -------- Dictated By: Jo Ann Forde Dictated Date: 10/16/2024 09:36 ET Assigned Physician: Jo Ann Forde Reviewed and Electronically Signed By: Jo Ann Forde Signed Date: 10/16/2024 09:46 ET Workstation ID: [id number] Transcribed By: Self Edit Transcribed Date: 10/16/2024 09:36 ET Narrative 10/16/2024 9:46 AM EDT History: Abdominal pain and vomiting. Bowel obstruction suspected. Comparison: No previous imaging at this institution. Technique: Helical volumetric imaging of the abdomen and pelvis was performed without oral contrast and during the uneventful intravenous administration of 90 cc Isovue-370. DLP: 1347.57 mGy/cm Zea[employer] VCT Iterative reconstruction technique Findings: There is moderate fluid distention of the stomach, duodenum and proximal small bowel, with hazy increased attenuation within the adjacent mesentery. There is a gradual decrease in caliber of the dilated small bowel which becomes normal in caliber in the right mid abdomen, with no abrupt transition site identified. No hernia is seen the remainder of the small bowel is normal in caliber to the terminal ileum. The colon is not dilated and contains air and formed fecal material to the level of the rectum. The appendix is normal in caliber in the right lower quadrant. The dilated small bowel loops are associated with mild mural thickening. No pneumatosis intestinalis is identified. No mesenteric or portal venous gas is seen. Minimal mural calcification of the abdominal aorta is seen. The celiac, superior mesenteric and inferior mesenteric arteries are widely patent. The liver is normal in size and configuration. No masses are identified. The portal vein is patent. Cholecystectomy sequela are noted. No evidence of biliary obstruction is seen. The spleen, pancreas and adrenal glands are unremarkable. The kidneys are normal in position and size, with symmetric, intact nephrograms and no evidence of hydronephrosis. A 6 mm circumscribed round hypoattenuating lesion in the lower pole the left kidney is too small to accurately characterize, possibly a cyst. No specific follow-up is recommended. A trace amount of ascites is seen in the dependent portion of the pelvis. No lymphadenopathy is seen. The prostate, seminal vesicles and urinary bladder are unremarkable. There are disc degenerative changes in the lower lumbar spine. Procedure Note Jo nAn Forde MD - 10/16/2024 History: Abdominal pain and vomiting. Bowel obstruction suspected. Comparison: No previous imaging at this institution. Technique: Helical volumetric imaging of the abdomen and pelvis wasperformed without oral contrast and during the uneventful intravenousadministration of 90 cc Isovue-370. DLP: 1347.57 mGy/cm popexpertpeSava Transmedia VCT Iterative reconstruction technique Findings: There is moderate fluid distention of the stomach, duodenum and proximalsmall bowel, with hazy increased attenuation within the adjacentmesentery. There is a gradual decrease in caliber of the dilated smallbowel which becomes normal in caliber in the right mid abdomen, with noabrupt transition site identified. No hernia is seen the remainder of thesmall bowel is normal in caliber to the terminal ileum. The colon is notdilated and contains air and formed fecal material to the level of therectum. The appendix is normal in caliber in the right lower quadrant. The dilated small bowel loops are associated with mild mural thickening.No pneumatosis intestinalis is identified. No mesenteric or portal venousgas is seen. Minimal mural calcification of the abdominal aorta is seen. The celiac,superior mesenteric and inferior mesenteric arteries are widely patent. The liver is normal in size and configuration. No masses are identified.The portal vein is patent. Cholecystectomy sequela are noted. No evidenceof biliary obstruction is seen. The spleen, pancreas and adrenal glands are unremarkable. The kidneys are normal in position and size, with symmetric, intactnephrograms and no evidence of hydronephrosis. A 6 mm circumscribed roundhypoattenuating lesion in the lower pole the left kidney is too small toaccurately characterize, possibly a cyst. No specific follow-up isrecommended. A trace amount of ascites is seen in the dependent portion of the pelvis.No lymphadenopathy is seen. The prostate, seminal vesicles and urinarybladder are unremarkable. There are disc degenerative changes in the lower lumbar spine. IMPRESSION: Impression: 1. Fluid distended stomach, duodenum and proximal small bowel with gradualdecrease in small bowel caliber. This may represent a localized ileuspattern secondary to focal enteritis (mild small bowel wall thickening andhazy increased attenuation in the mesenteric fat) versus low-grade smallbowel obstruction. 2. [place] [employer] [place] ([id number]) -------- FINAL REPORT -------- Dictated By: Jo Ann Forde Dictated Date: 10/16/2024 09:36 ET Assigned Physician: Jo Ann Forde Reviewed and Electronically Signed By: Jo Ann Forde Signed Date: 10/16/2024 09:46 ET Workstation ID: [id number] Transcribed By: Self Edit Transcribed Date: 10/16/2024 09:36 ET Isaias Saavedra DO IMG CT PROCEDURES Final Result * Lipase (10/16/2024 1:38 AM EDT) Lipase 26 13 - 75 unit/L LAB CHEMISTRY METHOD 10/16/2024 3:00 AM EDT [facility] Blood Venous blood specimen / Unknown Venipuncture / Unknown 10/16/2024 1:38 AM EDT 10/16/2024 1:57 AM EDT us Isaias Saavedra DO LAB BLOOD ORDERABLES Final Res ult [facility] [address] [place] [address], [place] [phone] from Last 3 Months Insurance [facility] Advance Directives * Full Code - Confirmed (Latest Code Status on File) Date Activated Date Inactivated Comments 10/16/2024 12:15 PM 10/19/2024 2:36 PM This code s tatus was ascertained in the following way: Code status discussion: discussion with patient To update the patient's code status, place a code status order. Do not modify or discontinue any currently active code status orders. Care Teams Basket Braider Relationship Specialty Start Date End Date Darcy Seo MD [address] [place] [phone] PCP - General Internal Medicine 10/16/24
--- OUTSIDE RECORDS SUMMARY | 2024-12-02 08:35 | XMS_ITS | Encounter Summary ---
Author Organization [employer] Address [address] [facility] [address] [place] [address] Care Team Providers Care Testing Specialist Name Role Phone Darcy Seo MD Primary Care Provider + Reason for Visit * Reason Comments Med Refill Encounter Details Date Type Department Care Team ([facility] Contact Info) Description 08/08/2024 Refill [facility] [address] [place], [place] [phone] Jodie Mazariegos MD [address] [place], [place] [phone] Mixed hyperlipidemia Social History Tobacco Use Types [...] Description 12/27/2024 2:00 PM EDT Office Visit [facility] ADULT [facility] [address] [place] [address] [place], Brandee [address] [place] [address] documented as of this encounter Visit Diagnoses Diagnosis Mixed hyperlipidemia documented in this encounter Additional Health Concerns Assessment Noted Time PHQ-9 Depression Total Score: 3 10/27/19 24 2:40 PM EDT documented as of this encounter Care Teams Testing Specialist Relationship Specialty Start Date End Date Darcy Seo MD [address] [place] [address] PCP - General Family Medicine 05/01/16 documented as of this encounter
== END 2024-12-02 09:28 | disposition home or self-care (01) ==
LOC: HO.HUSH 08:17
PROVIDERS: PCP Internal Medicine; Visit Provider Nurse Practitioner Family
DX: E29.1 Testicular hypofunction (principal); N32.81 Overactive bladder; N52.9 Male erectile dysfunction, unspecified; Z13.9 Encounter for screening, unspecified
CPT/HCPCS: 99214

== ENCOUNTER → 2024-12-02 08:16 | Outpatient (BNVA) | payer BC, SELFPAY | PROVIDERS: PCP Internal Medicine; Visit Provider Nurse Practitioner Family | DX: E29.1 Testicular hypofunction (principal); N32.81 Overactive bladder; N52.9 Male erectile dysfunction, unspecified | CPT/HCPCS: 51798; 81003 ==

== ENCOUNTER 2025-02-19 07:04 | Outpatient (REF) | payer BC, SELFPAY ==
--- OUTSIDE RECORDS SUMMARY | 2025-02-19 07:07 | XMS_ITS | Clinical Summary ---
Author Organization [facility] [place] Address [address] [place] [address] Phone Care Team Providers Care Middleware Consultant Name Role Phone Darcy Seo MD Primary Care Provider + [phone] Allergies Active Allergy Reactions Criticality Noted Date [...] Ileus (CMS/HCC V24, CMS/HCC V28) 10/16/2024 10/19/2024 Surgical History Surgery Date Site/Laterality Comments CHOLECYSTECTOMY [...] 85 10/19/2024 8:03 AM EDT Temperature 36.1 C (96.9 F) 10/19/2024 8:03 AM EDT Respiratory Rate 17 10/19/2024 8:03 AM EDT [...] 2024 07/10/2023, 08/18/2021, 12/01/2020, Additional history exists Depression Screening 07/28/2024 Cholesterol Screening (Lipid Panel) 10/16/2024 Colorectal Cancer Screening: Colonoscopy 10/16/2024 Hepatitis C Screening 10/16/2024 Social Influencers of Health Screening 10/16/2024 Influenza Vaccine (#1) 2025 , 04/11/2022, 05/11/2020, Additional history exists Hypertension/CHF/CAD Annual [...] Procedure Name Priority Date/Time Associated Diagnosis Comments BASIC METABOLIC PANEL Routine 10/19/2024 6:01 AM EDT from Last 3 Months or Most Recently Relevant to Health Maintenance Results * (ABNORMAL) Basic metabolic panel (10/19/2024 6:01 AM EDT) Sodium 139 133 - 145 mmol/L LAB CHEMISTRY METHOD 10/19/2024 7:40 AM [facility] Potassium 4.1 3.5 - 5.5 mmol/L LAB CHEMISTRY METHOD 10/19/2024 7:40 AM [facility] Chloride 105 96 - 110 mmol/L LAB CHEMISTRY METHOD 10/19/2024 7:40 AM [facility] CO2 29 21 - 32 mmol/L LAB CHEMISTRY METHOD 10/19/2024 7:40 AM [facility] Anion Gap 5 3 - 11 LAB CHEMISTRY METHOD 10/19/2024 7:40 AM [facility] Glucose 103(H) 70 - 100 mg/dL LAB CHEMISTRY METHOD 10/19/2024 7:40 AM EDT [facility] BUN 12 5 - 25 mg/dL LAB CHEMISTRY METHOD 10/19/2024 7:40 AM EDT [facility] Creatinine 1.03 0.70 - 1.30 mg/dL LAB CHEMISTRY METHOD 10/19/2024 7:40 AM EDT [facility] eGFR 86 >=60 mL/min/1. 73m2 LAB CHEMISTRY METHOD 10/19/2024 7:40 AM EDT [facility] Comment:Calculation based on the Chronic Kidney Disease Epidemiology Collaboration (CKD-EPI) equation refit without adjustment for race. BUN/Creatinine Ratio 11.7 LAB CHEMISTRY METHOD 10/19/2024 7:40 AM EDT [facility] Calcium 8.9 8.5 - 10.5 mg/dL LAB CHEMISTRY METHOD 10/19/2024 7:40 AM EDT [facility] Blood Venous blood specimen / Unknown Venipuncture / Unknown 10/19/2024 6:01 AM EDT 10/19/2024 7:00 AM EDT Yenny FLETCHER LAB BLOOD ORDERABLES Final Re sult [facility] [address] [place] [address], from Last 3 Months or Most Recently Relevant to Health Maintenance Insurance [facility] Advance Directives * Full Code - Confirmed (Latest Code Status on File) Date Activated Date Inactivated Comments 10/16/2024 12:15 PM 10/19/2024 2:36 PM This code s tatus was ascertained in the following way: Code status discussion: discussion with patient To update the patient's code status, place a code status order. Do not modify or discontinue any currently active code status orders. Care Teams Middleware Consultant Relationship Specialty Start Date End Date Darcy Seo MD [address] [place] [phone] PCP - General Internal Medicine 10/16/24
--- OUTSIDE RECORDS SUMMARY | 2025-02-19 07:07 | XMS_ITS | Encounter Summary ---
Author Organization [employer] Address [address] [facility] 7[address] [place] [address] Care Team Providers Care Telemedicine Physician Name Role Phone Darcy Seo MD Primary Care Provider + Reason for Visit * Reason Onset Date Comments Med Refill 01/11/2025 Encounter Details Date Type Department Care Team ([facility] Contact Info) Description 01/11/2025 Refill [facility] MED[facility] [address] [place], [place] [phone] Darcy Seo MD [address] [place], [place] [phone] Social History Tobacco Use Types Packs/Day Years [...] Care Team (Late st Contact Info) Description 07/07/2025 3:00 PM EST Office Visit [facility] ADULT DENTAL [address] [place] [address] DesmondBrandee [address] [place] [address] documented as of this encounter Visit Diagnoses Not on filedocumented in this encounter Additional Health Concerns Assessment Noted Time PHQ-9 Depression Total Score: 3 10/27/19 24 2:40 PM EDT documented as of this encounter Care Teams Telemedicine Physician Relationship Specialty Start Date End Date Darcy Seo MD [address] [place] [address] PCP - General Family Medicine 05/01/16 documented as of this encounter
--- OUTSIDE RECORDS SUMMARY | 2025-02-19 07:07 | XMS_ITS | Encounter Summary ---
Author Organization [facility] Address [address] [place] [phone] Phone Care Team Providers Care Yacht Rigger Name Role Phone Darcy Seo MD Primary Care Provider + Encounter Details Date Type Department Care Team (Late st Contact Info) Description 02/05/2023 Procedure Pass [facility] CT Imaging, Roland [address] [place] [address] Social History Tobacco Use Types Packs/Day Years Used Date Smoking Tobacco: Never Smokeless Tobacco: Never Alcohol Use Standard Drinks/Week Comments Yes 2 (1 standard drink = 0.6 oz pur e alcohol) Education Answer Date Recorded Are you interested in more education? Not on holly e 11/23/2022 Are you concerned about learning? Not on file 11/23/2022 No 11/23/2022 No 11/23/2022 Digital Access Answer Date Recorded No 12/24/2022 No 12/24/2022 Reliable internet access at home? Not on file 12/24/2022 Device with a working camera? Not on file Sex and Gender Information Value Date Recorded Sex Assigned at Male 05/01/2021 4:51 PM EDT Legal Sex Male 10:19 AM EDT Gender Identity Male 05/01/2021 4:51 PM EDT Sexual Orientation Straight 05/01/2021 4: 51 PM EDT documented as of this encounter Plan of Treatment Not on file documented as of this encounter Visit Diagnoses Not on filedocumented in this encounter Care Teams Yacht Rigger Relationship Specialty Start Date End Date Darcy Seo MD [address] [place] [phone] PCP - General Internal Medicine 03/05/21 documented as of this encounter Additional Source Comments The information contained in this document represents components of the legal health record. It is not the complete legal health record.[facility]
[2025-02-19 07:49] LABS: Hematocrit 47.0 % (42.0-52.0); Hemoglobin 15.3 g/dl (14.0-18.0); Mean Corpuscular HGB Conc 32.6 g/dl (31.0-36.0); Mean Corpuscular Hemoglobin 29.1 pg (27.0-33.0); Mean Corpuscular Volume 89.4 fL (80.0-98.0); NRBC Abs Auto 0.000 X10*3/uL (0.0-0.012); NRBC Pct Auto 0.0 /100WBC (0.0-0.2); Platelet Count 215 X10*3/uL (160-400); Red Blood Count 5.26 X10*6/uL (4.60-5.80); White Blood Count 5.9 X10*3/uL (4.8-10.8)
[2025-02-19 08:52] LABS: Prostate Specific Antigen 0.29 ng/mL (<0.05-4.0)
[2025-02-24 23:20] LABS: Testosterone, Free 77.7 pg/mL (35.0-155.0)
== END 2025-02-19 07:05 | disposition home or self-care (01) ==
LOC: HO.LAB 07:04
PROVIDERS: PCP Internal Medicine; Visit Provider Nurse Practitioner Family
DX: E29.1 Testicular hypofunction (principal)
CPT/HCPCS: 36415; 84153; 84402; 84403; 85027

== ENCOUNTER 2025-02-26 07:57 | Outpatient (REF) | payer BC, SELFPAY ==
--- OUTSIDE RECORDS SUMMARY | 2025-02-26 08:00 | XMS_ITS | Encounter Summary ---
Author Organization [employer] Address [address] [facility] [address] [place] [address] Care Team Providers Care Soybean Grower Name Role Phone Darcy Seo MD Primary Care Provider + Reason for Visit * Reason Onset Date Comments Med Refill 01/11/2025 Encounter Details Date Type Department Care Team ([facility] Contact Info) Description 01/11/2025 Refill [facility] [address] [place], [place] [phone] Darcy Seo MD [address] [place], [place] [phone] Social History Tobacco Use Types Packs/Day Years [...] Description 07/07/2025 3:00 PM EST Office Visit [facility] ADULT DENTAL [address] [place] [address] DesmondBrandee [address] [place] [address] documented as of this encounter Visit Diagnoses Not on filedocumented in this encounter Additional Health Concerns Assessment Noted Time PHQ-9 Depression Total Score: 3 10/27/19 24 2:40 PM EDT documented as of this encounter Care Teams Soybean Grower Relationship Specialty Start Date End Date Darcy Seo MD [address] [place] [address] PCP - General Family Medicine 05/01/16 documented as of this encounter
--- OUTSIDE RECORDS SUMMARY | 2025-02-26 08:00 | XMS_ITS | Encounter Summary ---
Author Organization [facility] Address [address] [place] [phone] Phone Care Team Providers Care Donor Specialist Name Role Phone Darcy Seo MD Primary Care Provider + Encounter Details Date Type Department Care Team (Late st Contact Info) Description 02/05/2023 Procedure Pass [facility] CT Imaging, Roland [address] [place] [address] Social History Tobacco Use Types Packs/Day Years [...] on filedocumented in this encounter Care Teams Donor Specialist Relationship Specialty Start Date End Date Darcy Seo MD [address] [place] [phone] PCP - General Internal Medicine 03/05/21 documented as of this encounter Additional Source Comments The information contained in this document represents components of the legal health record. It is not the complete legal health record.[facility]
--- OUTSIDE RECORDS SUMMARY | 2025-02-26 08:00 | XMS_ITS | Clinical Summary ---
Author Organization [facility] Address [address] [place] [address] Phone Care Team Providers Care Credit Control Assistant Name Role Phone Darcy Seo MD Primary Care Provider + [phone] Allergies Active Allergy Reactions Criticality Noted Date [...] mmol/L LAB CHEMISTRY METHOD 10/19/2024 7:40 AM [facility] Potassium 4.1 3.5 - 5.5 mmol/L LAB CHEMISTRY METHOD 10/19/2024 7:40 AM [facility] Chloride 105 96 - 110 mmol/L LAB CHEMISTRY METHOD 10/19/2024 7:40 AM [facility] CO2 29 21 - 32 mmol/L LAB CHEMISTRY METHOD 10/19/2024 7:40 AM [facility] Anion Gap 5 3 - 11 LAB CHEMISTRY METHOD 10/19/2024 7:40 AM [facility] Glucose 103(H) 70 - 100 mg/dL LAB CHEMISTRY METHOD 10/19/2024 7:40 AM EDT [facility] BUN 12 5 - 25 mg/dL LAB CHEMISTRY METHOD 10/19/2024 7:40 AM EDT [facility] Creatinine 1.03 0.70 - 1.30 mg/dL LAB CHEMISTRY METHOD 10/19/2024 7:40 AM EDT [facility] eGFR 86 >=60 mL/min/1. 73m2 LAB CHEMISTRY METHOD 10/19/2024 7:40 AM EDT [facility] Comment:Calculation based on the Chronic Kidney Disease Epidemiology Collaboration (CKD-EPI) equation refit without adjustment for race. BUN/Creatinine Ratio 11.7 LAB CHEMISTRY METHOD 10/19/2024 7:40 AM EDT [facility] Calcium 8.9 8.5 - 10.5 mg/dL LAB CHEMISTRY METHOD 10/19/2024 7:40 AM EDT [facility] Blood Venous blood specimen / Unknown Venipuncture / Unknown 10/19/2024 6:01 AM EDT 10/19/2024 7:00 AM EDT Yenny FLETCHER LAB BLOOD ORDERABLES Final Re sult [facility] [address] [place] [address], from Last 3 Months or Most Recently Relevant to Health Maintenance Insurance [facility] Advance Directives * Full Code - Confirmed (Latest Code Status on File) Date Activated Date Inactivated Comments 10/16/2024 12:15 PM 10/19/2024 2:36 PM This code s tatus was ascertained in the following way: Code status discussion: discussion with patient To update the patient's code status, place a code status order. Do not modify or discontinue any currently active code status orders. Care Teams Credit Control Assistant Relationship Specialty Start Date End Date Darcy Seo MD [address] [place] [phone] PCP - General Internal Medicine 10/16/24
[2025-02-26 08:36] LABS: Hematocrit 45.2 % (42.0-52.0); Hemoglobin 15.2 g/dl (14.0-18.0); Mean Corpuscular HGB Conc 33.6 g/dl (31.0-36.0); Mean Corpuscular Hemoglobin 29.3 pg (27.0-33.0); Mean Corpuscular Volume 87.1 fL (80.0-98.0); NRBC Abs Auto 0.000 X10*3/uL (0.0-0.012); NRBC Pct Auto 0.0 /100WBC (0.0-0.2); Platelet Count 200 X10*3/uL (160-400); Red Blood Count 5.19 X10*6/uL (4.60-5.80); White Blood Count 5.6 X10*3/uL (4.8-10.8)
== END 2025-02-26 07:58 | disposition home or self-care (01) ==
LOC: HO.LAB 07:57
PROVIDERS: PCP Internal Medicine; Visit Provider Nurse Practitioner Family
DX: N52.9 Male erectile dysfunction, unspecified (principal); N40.1 Benign prostatic hyperplasia with lower urinary tract symptoms; N32.81 Overactive bladder
CPT/HCPCS: 36415; 85027

== ENCOUNTER 2025-03-03 14:59 | Outpatient (AMB) | payer BC, SELFPAY ==
--- NOTE | 2025-03-03 15:00 | MHC.OFFVIS ---
Intake Visit Reasons: 3m/labs/PVR Intake Note: Patient is present for 3M/LABS/PVR Urology Medication:OXYBUTYNIN,TADALAFIL,TESTOSTERONE Antibiotic Allergy:PENICILLIN Blood Thinner:ASPIRIN TODAY'S PVR: 0ML'S Diamond Broker Required: No Allergies cortisone (CORTISONE) Allergy (Unknown, Verified 03/03/25 21:46) TACHYCARDIA Penicillins (PCN) Allergy (Unknown, Verified 03/03/25 21:46) HIVES Medication List - Last Reconciled 03/03/25 by TAMRA Booth- aspirin 81 mg PO DAILY atorvastatin 20 mg PO DAILY lisinopril 5 mg PO DAILY oxybutynin chloride ER 5 mg PO DAILY 90 days tadalafil (Cialis) 5 mg PO DAILY 90 days tadalafil 20 mg PO .PRN 90 days testosterone 4 pumps topical DAILY 30 days HPI Comments Details: Yuri is a 54-year-old Guatemalan-speaking male patient of Dr. Seo. He has a past medical history of hypertension, hyperlipidemia, and hypogonadism. He presents to the office today for follow-up of his hypogonadism as well as lower urinary tract symptoms. In discussion with the patient today he reports compliance with urological medications as prescribed (testosterone, oxybutynin, and daily low dosing of Cialis daily) recent PSA, hemoglobin, hematocrit, and testosterone free and total results were reviewed with the patient today as noted and trended below. He discusses feeling more energy and overall well. We did discuss increase in testosterone levels when compared to previous. He does discuss feeling he has also had erections that are adequate for penetration. He also reports noting improvement in lower urinary tract symptoms with 5 mg of oxybutynin daily. PSA: 09/20 0.3, 09/21 0.4, 11/19 2.0, 02/18 0.3 Testosterone: 11/13 66, 07/19 213, 03/20 213, 09/21 148, 11/19 188, 02/18 418 Free testosterone: 03/20 43.5, 09/21 28.7, 11/19 42.3, 01/19 77.7 Hemoglobin/hematocrit: 09/20 137.7/41.6, 09/21 15.4/46.3, 11/19 14.2/43.0, 03/21 15.2/45.2 Previous workup has included a retroperitoneal ultrasound 4/24 noting bilateral kidneys with no calculi, lesions, and or hydronephrosis. The bladder is well distended and normal. Bladder jets are demonstrated. Pre void bladder volume is approximately 180 mL. Postvoid bladder volume is approximately 30 mL. Enlarged prostate of approximately 35 mL. He has a longstanding history of testosterone replacement and has previously followed up with [facility]. He has trialed injectable IM testosterone however did not wish to continue therefore was switched to topical gels. We discussed at length potential causes of hypogonadism, lower urinary tract symptoms, and erectile dysfunction. We discussed further treatment options of these urological conditions and risks and benefits of these treatment options. He denies incontinence, gross/visible hematuria, dysuria, foul smelling urine, changes to urinary stream, flank pain, fever, and or chills. He otherwise offers no other issues or concerns at this time. [facility] Surgical History Hx of knee surgery History of cholecystectomy Family History Father Heart attack No family history of cancer Mother No problems noted. Social History (Reviewed 12/02/24 @ 08:44 by Ko Walsh, [facility]) Alcohol intake: current Alcohol intake frequency: holidays/special occasions only Patient Tobacco Use Status: Never used Tobacco Review of Systems Const All systems reviewed & are unremarkable except as noted in HPI and below Physical Exam Const General: cooperative, healthy appearing, comfortable, no acute distress, well developed, alert and awake Nutritional Appearance: overweight Orientation/consciousness: patient oriented x3 Limitations: no limitations HEENT Head: Yes normal to inspection, Yes normocephalic and Yes atraumatic Ears: hearing grossly normal bilaterally Eyes General: appearance normal, both eyes and all related structures Neck Neck: Yes normal visual inspection and Yes trachea midline Chest Chest palpation & inspection: normal inspection of the chest Resp Effort & Inspection: normal respiratory effort and able to speak in complete sentences Cardio Rate: regular rate GI Inspection: Yes normal to inspection General: Yes no CVA tenderness Back/Spine/Pelvis Back: no CVA tenderness Skin General skin exam: no rashes or lesions noted Neuro General: patient oriented x3 Extrem General: Yes normal to inspection Psych Appearance: grossly normal and well kempt Mental Status: mental status grossly normal Speech and movement: Normal speech and movement present and Clear speech present Affect: normal affect Attitude: cooperative Thought process: Normal thought process present Thought content: Normal thought content present Insight: Fair insight present (Psych) Judgement: Fair judgement present (Psych) Office Procedures Post Void Residual Post Residual Void Post Void Residual (PVR): 0 [id number] Void Residual by ultrasound Results AMB Urinalysis, Automated UA Leukoctes 0 Micki/uL Last Edit by NURYS Preciado on 03/03/25 15:58 UA Nitrite Negative Last Edit by Julio Yee [facility] on 03/03/25 15:58 UA Urobilinogen 0.2 mg/dL Last Edit by Julio Yee CCM on 03/03/25 15:58 UA Protein 0 mg/dL Last Edit by Julio Yee [facility] on 03/03/25 15:58 UA pH 6.0 Last Edit by Julio Yee [facility] on 03/03/25 15:58 UA Blood 0 Alberto/uL Last Edit by Julio Yee [facility] on 03/03/25 15:58 UA Specific [place] 1.010 Last Edit by Julio Yee [facility] on 03/03/25 15:58 UA Ketone Negative Last Edit by Julio Yee [facility] on 03/03/25 15:58 UA Bilirubin 0 mg/dL Last Edit by Julio Yee [facility] on 03/03/25 15:58 UA Glucose 0 mg/dL Last Edit by Julio Yee [facility] on 03/03/25 15:58 Results Reviewed Results Reviewed: Laboratory Last Values Urine pH (Auto) 6.0 03/03/25 15:58 Specific [place] (Auto) 1.010 03/03/25 15:58 Urine Protein (Auto) 0 mg/dL 03/03/25 15:58 Glucose (UA)(Auto) 0 mg/dL 03/03/25 15:58 Urine Ketones (Auto) Negative 03/03/25 15:58 Urine Blood (Auto) 0 Alberto/uL 03/03/25 15:58 Urine Nitrite (Auto) Negative 03/03/25 15:58 Urine Bilirubin (Auto) 0 mg/dL 03/03/25 15:58 Urine Urobilinogen (Auto) 0.2 mg/dL 03/03/25 15:58 Leukocyte Esterase (Auto) 0 Micki/uL 03/03/25 15:58 Assessment & Plan Assessment & Plan (1) Hypogonadism in male: Code(s): E29.1 - Testicular hypofunction Category: Medical (2) OAB (overactive bladder): Code(s): N32.81 - Overactive bladder Category: Medical (3) Erectile dysfunction: Code(s): N52.9 - Male erectile dysfunction, unspecified Category: Medical Plan In office urinalysis results reviewed with the patient today; as noted above. PVR 0mLs. Recent hemoglobin, hematocrit, testosterone, free testosterone, and PSA results reviewed with the patient today; as noted above. We discussed further treatment options of hypogonadism and risks and benefits of these treatment options. We also discussed further treatment options of erectile dysfunction and risks and benefits of these treatment options. Continue testosterone, Cialis, and oxybutynin as discussed and prescribed; refills provided. We discussed bladder triggers/irritants. We also discussed potential near future in office urodynamics and or cystoscopy if symptoms persist and/or worsen. We discussed lifestyle modifications to assist with hypogonadism, erectile dysfunction as well as overall health and well-being. Will obtain PSA, CBC, and testosterone free and total in 3-6 months. Follow-up in 3-6 months with labs and PVR to be completed prior; or sooner with any issues, concerns, and or questions. Orders: Orders AMB Urinalysis Automated Today Z13.9 - Encounter for screening, unspecified Prostate Specific Antigen 3 Months E29.1 - Testicular hypofunction Testosterone, Free/Total 3 Months E29.1 - Testicular hypofunction Complete Blood Count no Diff 02/26/25 N32.81 - Overactive bladder, N40.1 - Benign prostatic hyperplasia with lower urinary tract symptoms, N52.9 - Male erectile dysfunction, unspecified Complete Blood Count no Diff 3 Months E29.1 - Testicular hypofunction Medications: Refilled tadalafil (Cialis) [id number] [facility] [id number] Member [id number] 5 mg PO DAILY 90 tabs 3RF 90 days tadalafil [id number] [facility] [id number] Member [id number] 20 mg PO .PRN 45 tabs 2RF sexual activity 90 days N52.01 - Erectile dysfunction due to arterial insufficiency, N52.9 - Male erectile dysfunction, unspecified oxybutynin chloride ER 5 mg PO DAILY 90 tabs 0RF for frequent urination 90 days testosterone apply 4 pumps over max area of EACH upper arm and shoulder 4 pumps topical DAILY 2 grams 5RF 30 days E29.1 - Testicular hypofunction Patient Instructions: The patient had an opportunity to ask questions regarding the treatment plan. All questions were answered. Physical exam, labs, and imaging were discussed and reviewed in detail. As well as risks, benefits, and discussion of treatment choices. No major barriers to understanding were identified. The patient expressed understanding and agreement with the above treatment plan. The patient was made aware they should contact our office by phone for worsening of their current condition, the appearance of new symptoms, or with any questions or concerns. Compliance is encouraged with any medications and follow up testing that is ordered. It is a privilege to be allowed the opportunity to participate in? your urological care.? Again, if you have any questions or concerns If you have any questions or concerns please do not hesitate to contact me. The office is [phone]. This note is constructed using voice recognition software. While every effort has been made to ensure accuracy statistical machine mechanic errors may have been included. Yours sincerely, CAITLIN Booth Coding Level of Care Code Est Pt Level 3 (16922) Complex EM visit Add On G2211 Diagnoses Hypogonadism in male E29.1 OAB (overactive bladder) N32.81 Erectile dysfunction N52.9 CPT Codes Post Residual Void - PVR CPT Code: 34820-Onvn Void Residual by ultrasound ([id number])
--- OUTSIDE RECORDS SUMMARY | 2025-03-03 15:01 | XMS_ITS | Encounter Summary ---
Author Organization [employer] Address [address] [place] [address] Care Team Providers Care Stab Setter And Driller Name Role Phone Darcy Seo MD Primary Care Provider + Reason for Visit * Reason Onset Date Comments Med Refill 01/11/2025 Encounter Details Date Type Department Care Team ([facility] Contact Info) Description 01/11/2025 Refill [facility] [address], [place] [phone] Darcy Seo MD [address], [place] [phone] Social History Tobacco Use Types Packs/Day Years [...] Description 07/07/2025 3:00 PM EST Office Visit [facility] AD[facility] DENTAL [address] [place] [address] [place] [address] [place] [address] documented as of this encounter Visit Diagnoses Not on filedocumented in this encounter Additional Health Concerns Assessment Noted Time PHQ-9 Depression Total Score: 3 10/27/19 24 2:40 PM EDT documented as of this encounter Care Teams Stab Setter And Driller Relationship Specialty Start Date End Date Darcy Seo MD [address] [place] [address] PCP - General Family Medicine 05/01/16 documented as of this encounter
--- OUTSIDE RECORDS SUMMARY | 2025-03-03 15:01 | XMS_ITS | Clinical Summary ---
Author Organization [facility] Address [address] [place] [address] Phone Care Team Providers Care Cover Maker Name Role Phone Darcy Seo MD Primary Care Provider + [phone] Allergies Active Allergy Reactions Criticality Noted Date [...] mmol/L LAB CHEMISTRY METHOD 10/19/2024 7:40 AM [facility] Potassium 4.1 3.5 - 5.5 mmol/L LAB CHEMISTRY METHOD 10/19/2024 7:40 AM [facility] Chloride 105 96 - 110 mmol/L LAB CHEMISTRY METHOD 10/19/2024 7:40 AM [facility] CO2 29 21 - 32 mmol/L LAB CHEMISTRY METHOD 10/19/2024 7:40 AM [facility] Anion Gap 5 3 - 11 LAB CHEMISTRY METHOD 10/19/2024 7:40 AM [facility] Glucose 103(H) 70 - 100 [...] sult [facility] [address] [place] [address], from Last 3 Months or Most Recently Relevant to Health Maintenance Insurance [facility] ([facility]) Advance Directives * Full Code - Confirmed (Latest Code Status on File) Date Activated Date Inactivated Comments 10/16/2024 12:15 PM 10/19/2024 2:36 PM This code s tatus was ascertained in the following way: Code status discussion: discussion with patient To update the patient's code status, place a code status order. Do not modify or discontinue any currently active code status orders. Care Teams Cover Maker Relationship Specialty Start Date End Date Darcy Seo MD [address] [place] [phone] PCP - General Internal Medicine 10/16/24
--- OUTSIDE RECORDS SUMMARY | 2025-03-03 15:01 | XMS_ITS | Encounter Summary ---
Author Organization [facility] Address [address] [place] [phone] Phone Care Team Providers Care Spanish Tutor Name Role Phone Darcy Seo MD Primary Care Provider + Encounter Details Date Type Department Care Team (Late st Contact Info) Description 02/05/[address] [facility] [place] [facility] Imaging, [place] [address] [place] [address] Social History Tobacco Use Types Packs/Day Years [...] on filedocumented in this encounter Care Teams Spanish Tutor Relationship Specialty Start Date End Date Darcy Seo MD [address] [place] [phone] PCP - General Internal Medicine 03/05/21 documented as of this encounter Additional Source Comments The information contained in this document represents components of the legal health record. It is not the complete legal health record.[facility]
== END 2025-03-03 15:39 | disposition home or self-care (01) ==
LOC: HO.HUSH 14:59
PROVIDERS: PCP Internal Medicine; Visit Provider Nurse Practitioner Family
DX: E29.1 Testicular hypofunction (principal); N32.81 Overactive bladder; N52.9 Male erectile dysfunction, unspecified; Z13.9 Encounter for screening, unspecified
CPT/HCPCS: 99213

== ENCOUNTER → 2025-03-03 14:59 | Outpatient (BNVA) | payer BC, SELFPAY | PROVIDERS: PCP Internal Medicine; Visit Provider Nurse Practitioner Family | DX: E29.1 Testicular hypofunction (principal); N52.9 Male erectile dysfunction, unspecified; N40.1 Benign prostatic hyperplasia with lower urinary tract symptoms; N32.81 Overactive bladder | CPT/HCPCS: 51798; 81003 ==